=== PATIENT | female | born 1985 | race Caucasian/White ===

== ENCOUNTER 2018-05-09 18:19 | Inpatient (IN) | payer SELFPAY ==
[~2018-05-09] VITALS: Ht 162.6 cm; Wt 58.7 kg
[2018-05-09] MEDS ORDERED: MIDAZOLAM DRIP 50 mg/50mL 50 ML IV ONE (18:30)
[2018-05-09] MEDS ORDERED: SODIUM CHLORIDE 0.9% 1,000 ML IV ONE ×2 (18:44)
[2018-05-09] MEDS ORDERED: PIPERACILLIN-TAZOB 3.375GM 100 ML IV ONE (18:45)
[2018-05-09] MEDS ORDERED: IPRATROPIUM BROM 0.5 MG/2.5ML INH SOL NEB ONE (19:00)
[2018-05-09] MEDS ORDERED: ALBUTEROL SULF 2.5 MG/0.5ML(0.5%) NEB SOLN NEB ONE (19:00)
[2018-05-09] MEDS ORDERED: methylPREDNISolone SOD SUCC 125 MG/2 ML VL IV ONE (19:00)
[2018-05-09] MEDS: MIDAZOLAM DRIP 50 mg/50mL 50 ML IV SCH (19:15)
[2018-05-09 19:33] LABS: Basophils # (auto) 0 uL; Basophils % (auto) 0.1 % (0.0-2.0); Eosinophils # (auto) 0.1 uL; Monocytes # (auto) 0.2 uL; Red Blood Cells 4.11 10^6/uL (4.0-5.20); White Blood Cell 11.9 10^3/uL (4.4-10.8)
[2018-05-09 19:45] LABS: Urine Bacteria NONE SEEN /hpf (None Seen); Urine Blood 2+ /uL (Negative); Urine Mucus FEW (None Seen); Urine WBC 2 /hpf (0 - 5)
[2018-05-09 19:48] LABS: Eosinophils % (auto) 0.6 % (0.0-7.0); Monocytes % (auto) 1.3 % (0.0-12.0)
[2018-05-09 19:49] LABS: Hematocrit 37.3 % (36.0-46.0); INR 1.08 (0.9-1.15); Lymphocytes # (auto) 3.3 uL; Mean Corpuscular Hgb Conc. 32.1 g/dL (32.0-36.0); Mean Corpuscular Volume 90.6 fL (80.0-100.0); Neutrophils # (auto) 8.3 uL; Partial Thromboplastin Time 27.1 sec (23.78-33.04); Platelet Count (auto) 358 10^3/uL (140-450); Prothrombin Time 11.5 sec (9.27-12.13); Red Cell Distribution Width 17.2 % (11.8-14.3)
[2018-05-09 19:51] LABS: Albumin 3.7 g/dL (3.4-5.0); Calcium 7.2 mg/dL (8.5-10.1); Potassium 3.7 mmol/L (3.5-5.1)
[2018-05-09 19:54] LABS: Lactic Acid w/Reflex 5.6 mmol/L (0.4-2.0)
[2018-05-09 20:00] LABS: BUN/Creatinine Ratio 9.5; Bilirubin, Total 0.8 mg/dL (0.2-1.0)
[2018-05-09 21:36] VITALS: BP 101/77
[2018-05-09] MEDS ORDERED: MORPHINE SULFATE 4 MG/ML SYR/VIAL IV PRN (22:00)
[2018-05-09] MEDS ORDERED: NITROGLYCERIN 0.4 MG SL TAB SL PRN (22:00)
[2018-05-09] MEDS ORDERED: VANCOMYCIN PER PHARMACY 0 MG IV SCH (22:00)
[2018-05-09] MEDS ORDERED: ONDANSETRON HCL 4 MG/2 ML VIAL IV PRN (22:00)
[2018-05-09] MEDS ORDERED: fentaNYL Drip 2500mCg/250mlNS 250 ML IV ONE (23:23)
[2018-05-09] MEDS: fentaNYL Drip 2500mCg/250mlNS 250 ML IV SCH (23:40)
[2018-05-10] VITALS (11 sets, daily range): BP systolic 93–114; BP diastolic 56–74
[2018-05-10] MEDS ORDERED: VANCOMYCIN 1GM/250ML 250 ML IV ONE
[2018-05-10] MEDS ORDERED: SODIUM CHLORIDE 0.9% 1,000 ML IV ONE
[2018-05-10 00:25] LABS: Lactic Acid w/Reflex 2.8 mmol/L (0.4-2.0)
[2018-05-10] MEDS: fentaNYL Drip 2500mCg/250mlNS 250 ML IV SCH (00:55)
[2018-05-10] MEDS: SODIUM CHLORIDE 0.9% 1,000 ML IV SCH ×3 (01:48→23:25)
[2018-05-10] MEDS ORDERED: MIDAZOLAM HCL 20 ML IV ONE (02:50)
[2018-05-10] MEDS ORDERED: LORazepam 2MG/ML-1ML VIAL ONE ×2 (02:59→05:16)
[2018-05-10] MEDS ORDERED: LEVETIRACETAM INJ 500 MG in D5W 5% 100 ML IV SCH (03:30)
[2018-05-10] MEDS ORDERED: LEVETIRACETAM 500 MG/5ML INJ IV ONE (03:57)
[2018-05-10] MEDS: PIPERACILLIN-TAZOB 3.375GM 100 ML IV SCH ×4 (04:23→21:36)
[2018-05-10] MEDS ORDERED: PHENOBARBITAL SODIUM IV ONE (05:00)
[2018-05-10] MEDS ORDERED: SODIUM CHL 0.9% IV ONE (05:00)
[2018-05-10] MEDS ORDERED: LORAZEPAM MDV 2MG/ML 10 ML IV ONE (05:15)
[2018-05-10] MEDS ORDERED: DIAZEPAM 5 MG/ML 2ML SYRG IV ONE (05:15)
[2018-05-10] MEDS ORDERED: PHENobarbital SODIUM 130 MG/ML VL ONE (05:25)
[2018-05-10] MEDS ORDERED: PHENobarbital SODIUM 65 MG/ML VL ONE (05:26)
[2018-05-10] MEDS ORDERED: PHENobarbital SODIUM 130 MG/ML VL IV ONE (05:30)
[2018-05-10 06:11] LABS: Basophils # (auto) 0 uL; Eosinophils # (auto) 0 uL; Hemoglobin 11.7 g/dL (12.2-16.2); Lymphocytes # (auto) 0.2 uL; Lymphocytes % (auto) 1.4 % (10.0-50.0); Mean Corpuscular Hemoglobin 29.9 pg (28.0-32.0); Mean Corpuscular Hgb Conc. 33.5 g/dL (32.0-36.0); Mean Corpuscular Volume 89.3 fL (80.0-100.0); Monocytes # (auto) 0.2 uL; Monocytes % (auto) 1.6 % (0.0-12.0); Neutrophils # (auto) 13.2 uL; Nucleated Red Blood Cells % 0.1 %; Platelet Count (auto) 238 10^3/uL (140-450); Red Blood Cells 3.92 10^6/uL (4.0-5.20); Red Cell Distribution Width 17.2 % (11.8-14.3); White Blood Cell 13.7 10^3/uL (4.4-10.8)
[2018-05-10] MEDS: LORAZEPAM MDV 2MG/ML 50 MG in SODIUM CHL 0.9% 25 ML IV SCH (06:17)
[2018-05-10] MEDS ORDERED: NOREPINEPHRINE 8 MG/250ML KIT 250 ML IV ONE (06:19)
[2018-05-10 06:28] LABS: Albumin 4.1 g/dL (3.4-5.0); BUN/Creatinine Ratio 13.6; Potassium 3.6 mmol/L (3.5-5.1)
[2018-05-10 06:32] LABS: Bilirubin, Total 0.8 mg/dL (0.2-1.0); Total Protein 7.5 g/dL (6.4-8.2)
[2018-05-10] MEDS: ALBUTEROL SULF 2.5 MG/0.5ML(0.5%) NEB SOLN NEB PRN (06:51)
[2018-05-10] MEDS: PANTOPRAZOLE 40 MG/10 ML VIAL IV SCH (08:08)
[2018-05-10] MEDS: NOREPINEPHRINE 8 MG/250ML KIT 250 ML IV SCH (09:00)
[2018-05-10 09:56] LABS: Alcohol, Urine < 3.0 mg/dL (0-5); Amphetamine Screen, Urine NEGATIVE (NEGATIVE); Barbiturate Scree,Urine NEGATIVE (NEGATIVE); Benzodiazephine Screen, Urine NEGATIVE (NEGATIVE); Cannabinoid Screen, Urine NEGATIVE (NEGATIVE); Cocaine Screen, Urine NEGATIVE (NEGATIVE); Opiate Scree,Urine NEGATIVE (NEGATIVE); Phencyclidine Screen, Urine NEGATIVE (NEGATIVE)
[2018-05-10] MEDS ORDERED: PROPOFOL 10 MG/ML 20 ML IV SCH (10:15)
[2018-05-10] MEDS: ENOXAPARIN SOD 40 MG/0.4 ML SYRINGE SC SCH (10:42)
[2018-05-10] MEDS: ASPirin 81 mg TAB PO SCH (10:42)
[2018-05-10] MEDS: PROPOFOL 100 ML IV SCH (11:00)
--- NOTE | 2018-05-10 12:15 | NUR ---
TRANSPORTED PT FROM ER BED7 TO CT. MANUALLY VENTILATED PT WITH NO INCIDENT REPORTED. PT PLACED ON AUTOMOTIVE BUYER. PT WAS PLACED ON PREVIOUS VENT SETTING. WILL CONTINUE TO MONITOR PT.
[2018-05-10 13:27] LABS: Urine Bacteria FEW /hpf (None Seen); Urine Blood 3+ /uL (Negative); Urine Mucus FEW (None Seen); Urine Specific Gravity 1.023 (1.001-1.035); Urine WBC 1213 /hpf (0 - 5); Urine WBC Clumps PRESENT /hpf (None Seen)
[2018-05-10] MEDS: VANCOMYCIN 1GM/250ML 250 ML IV SCH (14:51)
--- NOTE | 2018-05-10 15:00 | NUR ---
WOUND CARE NOTE: IN TO SEE PATIENT AT THIS TIME PER WOUND CARE CONSULT REQUEST. PATIENT WAS ADMITTED TO [facility] [place] WITH DIAGNOSIS OF CPR. PATIENT WAS INTUBATED, SEDATED IN THE ER. SHE CURRENTLY IS IN ER BED 7. PATIENT IS RESTING ON HOSPITAL BED. SHE HAS A CURRENT TRISTON SCORE OF 10. PATIENT IS WOUND FREE, WITH EXCEPTION OF SMALL SERUM FILLED BLISTER TO RIGHT UPPER ANTERIOR/MEDIAL THIGH. THIS BLISTER DOES NOT APPEAR TO BE PRESSURE RELATED. SKIN REMAINS INTACT, OPEN TO AIR AT THIS TIME. NO OTHER SKIN INTEGRITY ISSUES NOTED AT THIS TIME. RECOMMEND: FREQUENT TURN SCHEDULE Q2 HOURS, PRN CONDITION PERMITS,WITH PRESSURE REDISTRIBUTION USING PILLOWS/WEDGES, BID/PRN APPLICATION WITH MOISTURE BARRIER CREAM, OPTIFOAM GENTLE SACRAL DRESSING PREVENTATIVE, PRN DRESSING CHANGE TO RIGHT THIGH BLISTER IF WOUND OPENS, SKIN/WOUND CARE PLAN, DIETARY CONSULT FOR LOW TRISTON, CONTINUED MONITORING BY WOUND CARE TEAM. Addendum: 05/10/18 at 1747 by Марина Zapata RN Amended: Links added.
[2018-05-10] MEDS: LEVETIRACETAM INJ 500 MG in D5W 5% 100 ML IV SCH (16:15)
[2018-05-10] MEDS: MIDAZOLAM DRIP 50 mg/50mL 50 ML IV SCH (19:04)
[2018-05-11] VITALS (48 sets, daily range): BP systolic 89–142; BP diastolic 52–79
[2018-05-11] MEDS: VANCOMYCIN 1GM/250ML 250 ML IV SCH ×2 (00:25→13:33)
--- NOTE | 2018-05-11 03:39 | NUR ---
Respiratory note: CHANGED RR ON VENT TO 14 AT THIS TIME
[2018-05-11] MEDS: LEVETIRACETAM INJ 500 MG in D5W 5% 100 ML IV SCH ×2 (03:41→16:10)
[2018-05-11] MEDS: ACETAMINOPHEN 325 MG TAB PO PRN ×2 (03:51→18:15)
[2018-05-11] MEDS: PIPERACILLIN-TAZOB 3.375GM 100 ML IV SCH ×4 (03:52→22:15)
[2018-05-11] MEDS: LORAZEPAM MDV 2MG/ML 50 MG in SODIUM CHL 0.9% 25 ML IV SCH (05:08)
[2018-05-11] MEDS ORDERED: IBUPROFEN 100MG/5ML ORAL SUSP 100 MG/5 ML UD GT ONE ×2 (06:15→23:15)
[2018-05-11] MEDS: NOREPINEPHRINE 8 MG/250ML KIT 250 ML IV SCH (06:25)
[2018-05-11] MEDS: PANTOPRAZOLE 40 MG/10 ML VIAL IV SCH (07:57)
[2018-05-11] MEDS: ASPirin 81 mg TAB PO SCH (10:30)
[2018-05-11] MEDS: SODIUM CHLORIDE 0.9% 1,000 ML IV SCH ×2 (10:44→20:30)
[2018-05-11] MEDS: PROPOFOL 100 ML IV SCH ×3 (10:45→23:23)
[2018-05-11] MEDS: ENOXAPARIN SOD 40 MG/0.4 ML SYRINGE SC SCH (11:00)
[2018-05-11 11:09] LABS: Calcium 7.3 mg/dL (8.5-10.1); Potassium 3.7 mmol/L (3.5-5.1)
[2018-05-11 11:15] LABS: Albumin 3.2 g/dL (3.4-5.0); BUN/Creatinine Ratio 6.1; Bilirubin, Total 1.1 mg/dL (0.2-1.0); Magnesium 2.3 mg/dL (1.6-2.6); Total Protein 6.2 g/dL (6.4-8.2)
[2018-05-11 11:23] LABS: Basophils # (auto) 0.1 uL; Basophils % (auto) 0.4 % (0.0-2.0); Eosinophils # (auto) 0.2 uL; Eosinophils % (auto) 1.3 % (0.0-7.0); Hematocrit 29.7 % (36.0-46.0); Hemoglobin 9.8 g/dL (12.2-16.2); Lymphocytes # (auto) 1.4 uL; Lymphocytes % (auto) 10.3 % (10.0-50.0); Mean Corpuscular Hemoglobin 29.1 pg (28.0-32.0); Mean Corpuscular Volume 88.3 fL (80.0-100.0); Monocytes # (auto) 0.8 uL; Monocytes % (auto) 5.9 % (0.0-12.0); Neutrophils # (auto) 10.8 uL; Neutrophils % (auto) 82.1 % (37.0-80.0); Platelet Count (auto) 220 10^3/uL (140-450); Red Blood Cells 3.37 10^6/uL (4.0-5.20); White Blood Cell 13.1 10^3/uL (4.4-10.8)
--- NOTE | 2018-05-11 13:30 | NUR ---
NUTRITION CONSULT/ASSESSMENT NOTES Please refer to link notes of nutrition screen form filed under the intervention section of the plan of care for further details. Est. Needs absed on IBW (55 kg): 1350 kcal to 1650 kcal (25-30 kcal/kgIBW), 55 gms to 66 gms pro (1.0-1.2 gms/kgBW). Will continue to monitor pertinent labs and reassess nutrient need prn Thank you for this consult. Addendum: 05/11/18 at [address] Amended: Links added.
--- NOTE | 2018-05-11 14:27 | NUR ---
RT Transport Note: Patient transported to ICU 102 with RN Renetta CH Patient transported to and from procedure on ventilator with previous ordered settings. Patient on emergency telecommunications dispatcher with alarms set and audible, ambu-bag/mask connected to 02 tank. Patient returned to room with no adverse reaction noted. Transport completed without incident.
--- NOTE | 2018-05-11 14:30 | NUR ---
Admit to ICU from ER on vent AGUILAR STRANGE admitted to ICU via gurney on electronic device monitor, intubated and being bagged by Respiratory Therapist. Patient transferred to bed 102, connected to mechanical ventilator by therapist, NOE at bedside. Patient connected to ICU monitoring,Sinus rhythm on bedside monitor. Patient weighed by bedscale, oriented to Stacie Zhou primary RN, unit, ventilator and sedation. GTT:versed, levophed, dipirvan, and NS. Skin dry and intact. Right groin TLC central line noted. Pettit catheter patent, hung below bladder. Right upper thigh blister, intact. Patient repositioned on side. Bed locked in lowest position, call light within reach. All alarms in place. Continue to monitor.
--- NOTE | 2018-05-11 15:42 | NUR ---
FAMILY Patient mother and aunt at bedside. Updated on POC.
--- NOTE | 2018-05-11 17:09 | NUR ---
TEMP Oral temp 99.5, blankets removed, ice packs applied to trunk.
--- NOTE | 2018-05-11 18:00 | NUR ---
TEMP Rectal temp checked, 101.3 noted. Ice packs applied, prn Tylenol given with ice water. Will continue to monitor and reassess.
--- NOTE | 2018-05-11 19:45 | NUR ---
ROUNDS DR. LEE IN THE UNIT TO SEE PATIENT CALLED WAYLON (PT'S MOM) OVER THE PHONE, DR. LEE TALKED TO HER AND UPDATED HER OF THE EEG RESULTS
--- NOTE | 2018-05-11 19:45 | NUR ---
OPEN NOTES ASSUMED CARE OF PATIENT. ASSESSMENT DONE. PATIENT RECEIVED SEDATED WITH IV VERSED AND PROPOFOL. PUPILS BOTH REACTIVE TO LIGHT,COUGH AND GAG NOTED. WITHDRAWS TO PAIN. INTUBATED ON AC MODE. SATURATIONS 100% PATIENT HAVING FEVER, WAS GIVEN TYLENOL AT 1800HRS. HR AND BP STABLE. ON IV LEVOPHED - WILL TITRATE TO KEEP SBP >90 MMHG. RIGHT NARE NGT TO LIS WITH LIGHT GREENISH OUTPUT. RIGHT FEMORAL WITH ZOLL CATHETER TLC. NOTED BLISTER X 3 AT RIGHT THIGH SCD'S TO BOTH LEGS WILL CONTINUE TO MONITOR
--- NOTE | 2018-05-11 20:15 | NUR ---
TEMP PATIENT'S TEMP STILL GETTING HIGHER TEMP NOW 101F SPONGE BATH DONE, ICE PACKS AT BOTH ARMPITS,COLD COMPRESS AT THE FOREHEAD DONE. TYLENOL GIVEN AT 1800HRS WILL MONITOR CLOSELY
--- NOTE | 2018-05-11 21:14 | NUR ---
SEDATION VACATION -NOT DONE, WILL WEAN DOWN SEDATION SLOWLY PATIENT HAD SEIZURE EPISODE YESTERDAY PER REPORT Addendum: 05/11/18 at 2115 by Evelina Kemp RN Amended: Links added.
[2018-05-11] MEDS: fentaNYL Drip 2500mCg/250mlNS 250 ML IV SCH (22:18)
--- NOTE | 2018-05-11 22:30 | NUR ---
COOLING BLANKET ON Addendum: 05/12/18 at 0142 by Evelina Kemp RN TOÑO 101.1F
--- NOTE | 2018-05-11 22:45 | NUR ---
PAGED HOSPITALIST PAGED HOSPITALIST - PATIENT STILL HAS FEVER
--- NOTE | 2018-05-11 23:00 | NUR ---
HOSPITALIST CALLED BACK TALKED TO DR. LEE VERBAL ORDER RECEIVED AND VERIFIED
[2018-05-12] VITALS (105 sets, daily range): BP systolic 97–123; BP diastolic 54–79
[2018-05-12] MEDS: VANCOMYCIN 1GM/250ML 250 ML IV SCH ×2 (01:10→17:50)
[2018-05-12] MEDS: MIDAZOLAM DRIP 50 mg/50mL 50 ML IV SCH ×2 (01:20→19:04)
--- NOTE | 2018-05-12 01:30 | NUR ---
TEMP PATIENT'S TEMP 98.3F - COOLING BLANKET OFF
--- NOTE | 2018-05-12 02:30 | NUR ---
TEMP PATIENT'S TEMP NOW AT LOW SIDE = 95.9F PATIENT COVERED WITH TWO WARM BLANKETS WILL CONTINUE TO MONITOR
[2018-05-12] MEDS: LEVETIRACETAM INJ 500 MG in D5W 5% 100 ML IV SCH ×2 (03:36→16:05)
[2018-05-12] MEDS: PIPERACILLIN-TAZOB 3.375GM 100 ML IV SCH ×4 (04:04→22:25)
[2018-05-12 04:10] LABS: Basophils # (auto) 0 uL; Basophils % (auto) 0.2 % (0.0-2.0); Eosinophils # (auto) 0.3 uL; Eosinophils % (auto) 2.7 % (0.0-7.0); Hematocrit 29.7 % (36.0-46.0); Hemoglobin 10.3 g/dL (12.2-16.2); Lymphocytes # (auto) 1.3 uL; Lymphocytes % (auto) 12.8 % (10.0-50.0); Mean Corpuscular Hemoglobin 29.9 pg (28.0-32.0); Mean Corpuscular Hgb Conc. 34.5 g/dL (32.0-36.0); Mean Corpuscular Volume 86.8 fL (80.0-100.0); Monocytes # (auto) 0.5 uL; Monocytes % (auto) 4.4 % (0.0-12.0); Neutrophils # (auto) 8.3 uL; Neutrophils % (auto) 79.9 % (37.0-80.0); Platelet Count (auto) 209 10^3/uL (140-450); Red Blood Cells 3.43 10^6/uL (4.0-5.20); Red Cell Distribution Width 17.1 % (11.8-14.3); White Blood Cell 10.4 10^3/uL (4.4-10.8)
[2018-05-12 04:29] LABS: Albumin 2.9 g/dL (3.4-5.0); BUN/Creatinine Ratio 8.8; Calcium 7.3 mg/dL (8.5-10.1); Potassium 3.1 mmol/L (3.5-5.1); Total Protein 5.8 g/dL (6.4-8.2)
[2018-05-12] MEDS: LORAZEPAM MDV 2MG/ML 50 MG in SODIUM CHL 0.9% 25 ML IV SCH (04:49)
--- NOTE | 2018-05-12 06:11 | NUR ---
HOSPITALIST TALKED TO CHRISTEL KUHN INFORMED OF LAB RESULTS, URINE OUTPUT TELEPHONE ORDER RECEIVED AND VERIFIED
[2018-05-12] MEDS: POTASSIUM CHL 20MEQ/100ML 100 ML IV SCH ×4 (06:35→22:06)
--- NOTE | 2018-05-12 07:30 | NUR ---
SHIFT REPORT RECEIVED FROM NIGHT RN, MORE. PT RESTING WITH NO DISTRESS NOTED. PT SEDATED ON VERSED AND DIPRIVAN WHILE INTUBATED. NO SEIZURE ACTIVITY NOTED. CONTINUE TO MONITOR.
--- NOTE | 2018-05-12 08:05 | NUR ---
PT TEACHING PT UNABLE TO BENEFIT FROM PT TEACHING AT THIS TIME DUE TO CONDITION Addendum: 05/12/18 at 1128 by Brandy Cheema RN Amended: Links added.
--- NOTE | 2018-05-12 08:05 | NUR ---
ASSESSMENT PT LYING IB BED WITH NO SPONTANEOUS MOVEMENT NOTED. SEDATED ON VERSED AT 1 MG/HR AND DIPRIVAN AT 35 MCG/KG/MIN. PUPILS 3 AND BRISK. + COUGH AND GAG. ON THE VENTILATOR WITH 7.0 ETT/23 A T THE LIP, TV 500, AC 14, FIO2 30% AND PEEP OF 5. LUNGS CLEAR THROUGHOUT. TELE SR [address] AND INVERTED T WAVE IN LEAD II AND ELEVATED ST WITH INVERTED T WAVE IN LEAD V. PALPABLE PULSES TO ALL EXTREMITIES. SCDS TO BLE. ABD SOFT WITH HYPOACTIVE BOWEL SOUNDS. RIGHT NARES NGT WITH + PLACEMENT AND CONNECTED TO LIS, GREEN BILE FLUID DRAINING. LAST BM PRE ADMISSION. AREVALO CATHETER DRAINING CLEAR YELLOW URINE. TURNED TO RIGHT SIDE. RIGHT FEMORAL TLC, SITE BENIGN, 3 SMALL INTACT BLISTERS BELOW SITE. SACRUM CLEAR WITH OPTIFOAM DRESSING IN PLACE. CONTINUE TO MONITOR.
[2018-05-12] MEDS: PROPOFOL 100 ML IV SCH ×2 (08:07→23:15)
[2018-05-12] MEDS: PANTOPRAZOLE 40 MG/10 ML VIAL IV SCH (08:08)
[2018-05-12] MEDS: SODIUM CHLORIDE 0.9% 1,000 ML IV SCH ×2 (08:35→15:34)
[2018-05-12] MEDS: ENOXAPARIN SOD 40 MG/0.4 ML SYRINGE SC SCH (10:15)
[2018-05-12] MEDS: ASPirin 81 mg TAB PO SCH (10:15)
[2018-05-12] MEDS: NOREPINEPHRINE 8 MG/250ML KIT 250 ML IV SCH (10:32)
[2018-05-12] MEDS ORDERED: POTASSIUM CHL 20MEQ/100ML 100 ML IV SCH (11:15)
--- NOTE | 2018-05-12 12:30 | NUR ---
MD VISIT PT SEEN AND EAMINED BY DR GALDAMEZ. HE SPOKE WITH THE PT'S FAMILY AT THE BEDSIDE AND ANSWERED THEIR QUESTIONS.
[2018-05-12] MEDS: Jevity 1.2 Cal/Fiber 1 Liter GT SCH ×2 (15:51→15:53)
[2018-05-12] MEDS: SOD CHL 0.45% 1,000 ML IV SCH (15:53)
--- NOTE | 2018-05-12 16:35 | NUR ---
FEEDING HVE STARTED ON JEVITY 1.2 FEEDINGS AT 15 ML/HR WITH A GOAL RATE OF 30 ML/HR. CONTINUE TO MONITOR FOR RESIDUAL.
[2018-05-12 18:09] LABS: BUN/Creatinine Ratio 14.3; Calcium 7.4 mg/dL (8.5-10.1); Potassium 3.4 mmol/L (3.5-5.1)
--- NOTE | 2018-05-12 18:30 | NUR ---
PT HAS TOLERATED TITRATION DOWN ON DIPRIVAN TO 28 MCG FROM 35 WITH NO SEIZURE ACTIVITY NOTED.
--- NOTE | 2018-05-12 18:40 | NUR ---
PT'S MOTHER AND SISTER HAVE LEFT FOR DINNER.
--- NOTE | 2018-05-12 19:30 | NUR ---
REPORT TO MEGHAN AGUERO RN.
--- NOTE | 2018-05-12 19:50 | NUR ---
OPEN NOTES ASSUMED CARE OF PATIENT. ASSESSMENT DONE -REFER INTERVENTIONS. STILL SEDATED WITH PROPOFOL. PUPILS BOTH REACTIVE TO LIGHT,COUGH AND GAG NOTED. WITHDRAWS TO PAIN. INTUBATED ON AC MODE. SATURATIONS 100% PATIENT TEMP 96.6F RECTALLY, ORALLY 97.5F TUBE FEEDING STARTED TODAY, RESIDUAL CHECKED = 0ML, INCREASED TO 20ML/HR RIGHT FEMORAL WITH ZOLL CATHETER TLC. NOTED BLISTER X 3 AT RIGHT THIGH SCD'S TO BOTH LEGS WILL CONTINUE TO MONITOR
--- NOTE | 2018-05-12 20:00 | NUR ---
SEDATION WILL SLOWLY DECREASE SEDATION TOLERATED
--- NOTE | 2018-05-12 20:00 | NUR ---
TUBE FEEDING PATIENT'S NGT CHECKED, RESIDUAL = 0ML INCREASED FEEDING TO 20ML/HR
--- NOTE | 2018-05-12 21:30 | NUR ---
Family updated on pt status Family of AGUILAR STRANGE updated on patient's status and condition. All questions and concerns addressed. verbalized understanding. Addendum: 05/13/18 at 0101 by Evelina Kemp RN ADVISED ABOUT POC
[2018-05-12] MEDS: fentaNYL Drip 2500mCg/250mlNS 250 ML IV SCH (22:18)
[2018-05-13] VITALS (102 sets, daily range): BP systolic 97–142; BP diastolic 52–88
--- NOTE | 2018-05-13 | NUR ---
TUBE FEEDING PATIENT'S NGT CHECKED, RESIDUAL = 0ML INCREASED FEEDING TO 30ML/HR
[2018-05-13] MEDS: LEVETIRACETAM INJ 500 MG in D5W 5% 100 ML IV SCH ×2 (03:36→15:55)
[2018-05-13] MEDS: PIPERACILLIN-TAZOB 3.375GM 100 ML IV SCH ×4 (03:57→23:52)
--- NOTE | 2018-05-13 04:00 | NUR ---
FATHER AT BEDSIDE UPDATED HIM OF PATIENT'S CONDITION.ALL QUESTIONS ANSWERED,VERBALIZED UNDERSTANDING
[2018-05-13 04:03] LABS: Basophils # (auto) 0 uL; Basophils % (auto) 0.2 % (0.0-2.0); Eosinophils # (auto) 0.3 uL; Eosinophils % (auto) 7.6 % (0.0-7.0); Hematocrit 25.6 % (36.0-46.0); Hemoglobin 8.9 g/dL (12.2-16.2); Lymphocytes # (auto) 0.6 uL; Lymphocytes % (auto) 13.5 % (10.0-50.0); Mean Corpuscular Hemoglobin 30.1 pg (28.0-32.0); Mean Corpuscular Hgb Conc. 34.8 g/dL (32.0-36.0); Mean Corpuscular Volume 86.4 fL (80.0-100.0); Monocytes # (auto) 0.2 uL; Monocytes % (auto) 4.2 % (0.0-12.0); Neutrophils # (auto) 3.3 uL; Neutrophils % (auto) 74.5 % (37.0-80.0); Nucleated Red Blood Cells % 0.1 %; Platelet Count (auto) 147 10^3/uL (140-450); Red Blood Cells 2.96 10^6/uL (4.0-5.20); Red Cell Distribution Width 16.5 % (11.8-14.3); White Blood Cell 4.4 10^3/uL (4.4-10.8)
[2018-05-13] MEDS: SOD CHL 0.45% 1,000 ML IV SCH ×3 (04:10→13:36)
--- NOTE | 2018-05-13 04:30 | NUR ---
Family updated on pt status PARENTS of ALIEAGUILAR updated on patient's status and condition. All questions and concerns addressed. verbalized understanding.
[2018-05-13 04:37] LABS: Albumin 2.5 g/dL (3.4-5.0); BUN/Creatinine Ratio 23.1; Magnesium 1.7 mg/dL (1.6-2.6); Potassium 3.7 mmol/L (3.5-5.1)
[2018-05-13 04:40] LABS: Bilirubin, Total 0.7 mg/dL (0.2-1.0); Total Protein 5.3 g/dL (6.4-8.2)
[2018-05-13] MEDS: LORAZEPAM MDV 2MG/ML 50 MG in SODIUM CHL 0.9% 25 ML IV SCH (05:15)
[2018-05-13] MEDS: NOREPINEPHRINE 8 MG/250ML KIT 250 ML IV SCH (06:08)
--- NOTE | 2018-05-13 06:20 | NUR ---
Patient bathe/linen change Patient given complete bath. Skin integrity assessed for any changes. Linens changed. Patient repositioned for comfort.
--- NOTE | 2018-05-13 07:30 | NUR ---
NEUROLOGIST DR. JESUS TOTH AWARE OF REACTION TO PAINFUL STIMULI REPORTED. SEE MD NOTES.
--- NOTE | 2018-05-13 09:00 | NUR ---
PULMONARY CONSULT IN PLACE DR. DIAZ NOTIFIED OF CONSULT WHILE AT NURSES STATION. VERBALIZED UNDERSTANDING.
--- NOTE | 2018-05-13 10:00 | NUR ---
Family updated on pt status Family of THI STRANGESSICA updated on patient's status and condition. All questions and concerns addressed. Mother/ father/ sister/ friends verbalized understanding.
--- NOTE | 2018-05-13 10:01 | NUR ---
Hospitalist at bedside Dr. Bedoya updated on patients status, Md updated family at bedside on plan of care, questions and concerns addressed. Md aware of pending nephrology consult. See md orders/ notes. Addendum: 05/13/18 at 1010 by Laurel Álvarez RN MD AWARE OF CURRENT HBG ORDER, PER MD DROP IS LIKELY FROM HEMODILUTION. BLEEDING TO BE MONITORED.
[2018-05-13] MEDS: ENOXAPARIN SOD 40 MG/0.4 ML SYRINGE SC SCH (10:14)
[2018-05-13] MEDS: ASPirin 81 mg TAB PO SCH (10:14)
[2018-05-13] MEDS: PANTOPRAZOLE 40 MG/10 ML VIAL IV SCH (10:14)
[2018-05-13] MEDS: VANCOMYCIN 1GM/250ML 250 ML IV SCH (10:14)
[2018-05-13] MEDS ORDERED: CALCIUM GLUC 4.65meq/50ml D5AE 50 ML IV ONE (10:30)
[2018-05-13 11:16] LABS: Urine Bacteria NONE SEEN /hpf (None Seen); Urine Blood Negative /uL (Negative); Urine Mucus FEW (None Seen); Urine Specific Gravity 1.037 (1.001-1.035); Urine WBC 4 /hpf (0 - 5)
[2018-05-13 11:43] LABS: Protein, Urine 43.9 mg/dL (0.0-11.9)
--- NOTE | 2018-05-13 11:52 | NUR ---
Nutrition Follow-up Notes Wt.: 67.8 kg today. Pt's intubated, immediate family members at bedside talking to MD during rounds in ER earlier. Pt's currently sedated with Propofol @ 7.43 ml/hr providing 196 kcal from Fat. Pt's NPO, currently on Jevity 1.2 Ced @ 30 ml/hr providing 864 kcal, 40 gms pro and 581 ml free water, tolerates feeding well, no residuals noted by RN this morning. Pt with inadequate EN support d/t low initiation rate delivery of concentrated formula aeb current EN infusion meets 53% to 62% of est caloric needs (with Propofol on board) and 45% to 59% of est protein needs. Noted pt's for active Nephrology consult. Est. Needs reassessed based on CBWt (68 kg): 1700 kcal to 2000 kcal (25-30 kcal/kgIBW), 68 gms to 88 gms pro (1.0-1.3 gms/kgBW d/t mod hypoalbuminemia). Will continue to monitor pertinent labs and reassess nutrient need prn Labs: Cl 112 H, Ca 7.0 L, Cr 0.39 L, AST 87 H, Tpro 5.3 L, Alb 2.5 L Skin: Patrice scale 13, mod risk, pt's right upper medial thigh intact blister, serum filled per manifest/order organizer print orders. Pls refer to computer science professor's notes (05/10/18) for further details re: tx plans. GI: Pt had 1 BM this morning per manifest/order organizer print orders. PES: Increased nutrient needs r/t current/chronic medical condition aeb intubated, sedated, mild hypoalbuminemia, NPO. Altered nutrition related lab values r/t current/chronic medical condition aeb hyperglycemia, elev. LFTs, hyperbilirubinemia, hypocalcemia and mild hypoalbuminemia Will continue to monitor NPO status, EN tolerance, skin status, pertinent labs and weight trend. F/u in 2 to 3 days. Rec.: 1.) If still NPO with EN support, consider gradual increase on feeding rate of Jevity 1.2 Ced to 60 ml/hr goal rate as tolerated while on current rate of Propofol. 2.) If Albumin level continues trending down,consider Prostat 1 pkt BID. 3.) Consider daily MVI with minerals and Asc acid 500 mgs BID prn. 4.) Advance gradually to oral diet when medically appropriate. 5.) Refer to RD for further nutrition education and weight monitoring upon discharged. 6.) Continue current plan of care.
[2018-05-13] MEDS: MAGNESIUM SULFATE 1GM/100ML 100 ML IV SCH ×2 (12:27→13:35)
--- NOTE | 2018-05-13 12:45 | NUR ---
BUILDING CUSTODIAN AT BEDSIDE MD UPDATED ON PATIENTS STATUS, FAMILY AT BEDSIDE UPDATED BY MD, QUESTIONS AND CONCERNS ADDRESSED. SEE NEW ORDERS.
--- NOTE | 2018-05-13 13:44 | NUR ---
Left foot jerking noted during all cares. Patient opening eyes to stimulus , not yet tracking or following commands. See iv spreadsheet. Addendum: 05/13/18 at 1444 by Laurel Álvarez RN DUPLICATE NOTE
--- NOTE | 2018-05-13 13:48 | NUR ---
LEFT FOOT CONTINUOUS JERKING MOVEMENT NOTED AFTER ANY TYPE OF STIMULI. SEDATION TO BE TITRATE APPROPRIATELY . NO OTHER TWITCHING TO ANY OTHER EXTREMITIES. ONCE PATIENT IS LEFT ALONE MOVEMENT SUBSIDES APPROX AFTER 90 SEC. Addendum: 05/13/18 at 1440 by Laurel Álvarez RN Propofol continues to infuse.
--- NOTE | 2018-05-13 17:16 | NUR ---
Pt is a 32 yo female that is currently intubated and unable to participate in sr. social media & mobile manager assessment. Pt is unmarried and has no children. Pt's mother, father, another relative requested sr. social media & mobile manager meeting. Prior to admission pt resided in her own home ( newly purchased) and was employed with an [employer] company. Pt had recently had a raise on her job but it put her over income for reduced medical insurance. Parents requesting information on advance directives. Informed parents that in pt's present state they would not be able to do an advance directive but instructions for her care would be directed to the next closest relative. Mother inquiring about Medi-Ced and disability insurance for pt. Pt has been assessed by [facility] for Medi-Ced. Pt is a true no insurance and has no coverage for d/c planning. Provided family with education regarding d/c options post vent. Will followup with family and [facility] closert to time of d/c. Addendum: 05/18/18 at 1430 by RYAN LORENZO Amended: Links added.
--- NOTE | 2018-05-13 17:28 | NUR ---
SEIZURE ACTIVITY PATIENT HAVING CONTINUOUS MOVEMENT TO LEFT FOOT EVEN WITHOUT STIMULI. PRN ATIVAN GIVEN AND NO EFFECTS NOTED, PROPOFOL INCREASED. DR. LEE CALLED TO NOTIFY. SEE NEW ORDER.
[2018-05-13] MEDS ORDERED: LEVETIRACETAM INJ 1,000 MG in D5W 5% 100 ML IV ONE (17:30)
[2018-05-13] MEDS: MIDAZOLAM DRIP 50 mg/50mL 50 ML IV SCH (18:06)
--- NOTE | 2018-05-13 18:09 | NUR ---
ASSESSMENT KEPPRA INFUSED/ PROPOFOL INCREASED. PTS MOVEMENT TO LEFT BIG TOE AND SECOND TOE NOTED TO HAVE SLIGHTLY CONTINUOUS TWITCHING. WILL CONTINUE TO TITRATE PER DR. LEE UNTIL SEIZURE ACTIVITY SUBSIDES.
--- NOTE | 2018-05-13 18:45 | NUR ---
VENT ALARMING VENTILATOR ALARM, IN ROOM TO ASSESS PATIENT. VENT ALARMING HIGH PRESSURE, RR HIGH40'S. PT APPEARS TO BE CLAMPING DOWN AND STACKING BREATHS. R.T PAGED PATIENT APPEARS TO BE BITING DOWN ON ETT, R.T AT BEDSIDE TO APPLY OPA AT THIS TIME. SEE SEDATION INCREASED. SHORTLY AFTER PATIENT TOLERATED VENTILATOR.
[2018-05-13 19:02] LABS: BUN/Creatinine Ratio 17.1; Potassium 3.4 mmol/L (3.5-5.1)
--- NOTE | 2018-05-13 20:02 | NUR ---
CONSTRUCTION FIELD ENGINEER PAGED RE: BMP. AWAITING CALLBACK.
--- NOTE | 2018-05-13 20:15 | NUR ---
JHON CALLED BACK TALKED TO DR. KWON, INFORMED OF LAB RESULTS TELEPHONE ORDER RECEIVED AND VERIFIED
--- NOTE | 2018-05-13 20:30 | NUR ---
Family updated on pt status MOTHER of AGUILAR STRANGE updated on patient's status and condition. All questions and concerns addressed. verbalized understanding.
--- NOTE | 2018-05-13 21:00 | NUR ---
Family updated on pt status FATHER of AGUILAR STRANGE updated on patient's status and condition. All questions and concerns addressed. verbalized understanding.
--- NOTE | 2018-05-13 21:10 | NUR ---
LEFT FOOT TREMOR PATIENT'S LEFT FOOT NOT TO HAVE TREMORS LASTING FOR 4MINUTES INCREASED SEDATION - DIPRIVAN TO 34MCG/KG/MIN Addendum: 05/14/18 at 0312 by Evelina Kemp RN WILL TITRATE SEDATION TO CONTROL SEIZURE
--- NOTE | 2018-05-13 21:19 | NUR ---
SEDATION VACATION NOT DONE -NEEDED TO CONTROL SEIZURE Addendum: 05/13/18 at 2120 by Evelina Kemp RN Amended: Links added.
[2018-05-13] MEDS: SOD CHL 0.9%/ KCL 20MEQ 1,000 ML IV SCH (21:22)
[2018-05-13] MEDS: fentaNYL Drip 2500mCg/250mlNS 250 ML IV SCH (22:18)
[2018-05-14] VITALS (105 sets, daily range): BP systolic 96–126; BP diastolic 53–75
--- NOTE | 2018-05-14 01:45 | NUR ---
Patient bathe/linen change Patient given complete bath. Skin integrity assessed for any changes. Linens changed. Patient repositioned for comfort.
[2018-05-14] MEDS: PROPOFOL 100 ML IV SCH ×4 (02:20→19:13)
[2018-05-14 03:47] LABS: Basophils # (auto) 0 uL; Basophils % (auto) 0.3 % (0.0-2.0); Eosinophils # (auto) 0.2 uL; Eosinophils % (auto) 6.8 % (0.0-7.0); Hematocrit 26.6 % (36.0-46.0); Hemoglobin 9.2 g/dL (12.2-16.2); Lymphocytes # (auto) 0.5 uL; Lymphocytes % (auto) 13.2 % (10.0-50.0); Mean Corpuscular Hemoglobin 29.6 pg (28.0-32.0); Mean Corpuscular Hgb Conc. 34.5 g/dL (32.0-36.0); Mean Corpuscular Volume 85.8 fL (80.0-100.0); Monocytes # (auto) 0.2 uL; Monocytes % (auto) 5.2 % (0.0-12.0); Neutrophils # (auto) 2.6 uL; Neutrophils % (auto) 74.5 % (37.0-80.0); Nucleated Red Blood Cells % 0.3 %; Platelet Count (auto) 141 10^3/uL (140-450); Red Cell Distribution Width 16.3 % (11.8-14.3); White Blood Cell 3.4 10^3/uL (4.4-10.8)
[2018-05-14 04:11] LABS: Albumin 2.5 g/dL (3.4-5.0); BUN/Creatinine Ratio 11.9; Potassium 3.6 mmol/L (3.5-5.1)
[2018-05-14 04:13] LABS: Bilirubin, Total 0.5 mg/dL (0.2-1.0); Total Protein 5.4 g/dL (6.4-8.2)
[2018-05-14] MEDS: LORAZEPAM MDV 2MG/ML 50 MG in SODIUM CHL 0.9% 25 ML IV SCH ×2 (05:15→10:10)
[2018-05-14] MEDS: SOD CHL 0.9%/ KCL 20MEQ 1,000 ML IV SCH ×3 (05:25→20:15)
[2018-05-14] MEDS: PIPERACILLIN-TAZOB 3.375GM 100 ML IV SCH ×3 (05:33→18:07)
--- NOTE | 2018-05-14 06:01 | NUR ---
RE-ASSESS NO MORE LEFT FOOT TWITCHING/TREMORS NOTED SINCE DIPRIVAN WAS INCREASED TO 40 MCG/KG/MIN VS STABLE, AFEBRILE WILL CONTINUE TO MONITOR
--- NOTE | 2018-05-14 07:30 | NUR ---
Opening Shift Note: Report received from LAURA Hoyt. Assumed care of patient, intubated and sedated on diprivan for comfort. No S/S of distress/SOB or pain. Insructed mother on POC-patient to remain sedated for seizure control until Dr. Hu says ok to titrate off. Will continue to monitor for changes Q1hr and PRN. See Px assessment.
--- NOTE | 2018-05-14 07:30 | NUR ---
Dr. Hu at bedside. EEG ordered and increased Keprra dose.
[2018-05-14] MEDS: PANTOPRAZOLE 40 MG/10 ML VIAL IV SCH (08:00)
[2018-05-14] MEDS: NOREPINEPHRINE 8 MG/250ML KIT 250 ML IV SCH (08:00)
[2018-05-14] MEDS ORDERED: LEVETIRACETAM INJ 1,000 MG in D5W 5% 100 ML IV ONE (08:15)
[2018-05-14] MEDS ORDERED: PROPOFOL 100 ML IV ONE (09:05)
[2018-05-14] MEDS: LORazepam 2MG/ML-1ML VIAL IV PRN (09:13)
[2018-05-14] MEDS ORDERED: LEVETIRACETAM INJ 1,000 MG in D5W 5% 100 ML IV SCH (10:00)
--- NOTE | 2018-05-14 10:07 | NUR ---
EEG COMPLETED AT BEDSIDE. LAURA GAVIRIA
[2018-05-14] MEDS: ASPirin 81 mg TAB PO SCH (10:10)
[2018-05-14] MEDS: LEVETIRACETAM INJ 1,500 MG in D5W 5% 100 ML IV SCH ×2 (10:10→22:13)
[2018-05-14] MEDS: ENOXAPARIN SOD 40 MG/0.4 ML SYRINGE SC SCH (10:10)
[2018-05-14] MEDS ORDERED: CALCIUM CHL 100MG/ML 1,000 MG in D5W 5% 100 ML IV ONE (11:00)
--- NOTE | 2018-05-14 11:13 | NUR ---
Dr. Barajas at bedside- told him that family wants second neuro opinion and will tell Dr. Hu.
--- NOTE | 2018-05-14 14:48 | NUR ---
HEATED CIRCUIT PLACED ON VENT AND ALSO PLACED AL WITH BITE BLOCK WITH NO INCIDENCE REPORTED. LAURA LUIS MADE AWARE. WILL CONTINUE TO MONITOR PT.
--- NOTE | 2018-05-14 16:53 | NUR ---
Dr. Escamilla notified so far 500 out from [facility] - lasix 80 mg ordered.
[2018-05-14] MEDS ORDERED: FUROSEMIDE 100 MG/10ML VIAL IV ONE (17:00)
[2018-05-14] MEDS: MIDAZOLAM DRIP 50 mg/50mL 50 ML IV SCH (17:27)
--- NOTE | 2018-05-14 17:45 | NUR ---
Dr. Hu aware that family wants second opinion and wants update. He will see them in the morning - family aware.
--- NOTE | 2018-05-14 18:54 | NUR ---
Dr. Escamilla at bedside -call him if patient not putting out enough urine.
--- NOTE | 2018-05-14 19:02 | NUR ---
Endorsed care to LAURA Heredia.
--- NOTE | 2018-05-14 20:00 | NUR ---
OPENING SHIFT NOTE Received report from LAURA Stern. Pt resting in bed, intubated, and sedated. See IV spreadsheet and completed physical assessment intervention. Bed locked, in lowest position with top two side rails up, and call light within reach. All alarms on and audible. Will continue to monitor pt.
--- NOTE | 2018-05-14 20:28 | NUR ---
VISITORS AT BEDSIDE Pt's friend, Bj and mother, Katie at bedside. Updated on pt condition and answered all questions. Katie verbalized understanding.
[2018-05-14] MEDS: fentaNYL Drip 2500mCg/250mlNS 250 ML IV SCH (22:15)
[2018-05-15] VITALS (103 sets, daily range): BP systolic 81–118; BP diastolic 41–67
[2018-05-15] MEDS: PIPERACILLIN-TAZOB 3.375GM 100 ML IV SCH ×5 (00:40→23:42)
--- NOTE | 2018-05-15 01:00 | NUR ---
ELEVATED TEMPERATURE Cooling measures implemented for elevated temperature. Will continue to monitor pt.
--- NOTE | 2018-05-15 01:30 | NUR ---
GASTRIC RESIDUAL 0 ml gastric residual noted. Jevity 1.2 TF resumed at 30 ml/hr. Will continue to monitor.
--- NOTE | 2018-05-15 01:45 | NUR ---
ATIVAN AND PROPOFOL DRIP RATE INCREASED BLE tremor noted after receiving oral care. Pt opened eyes slightly but did not track movements. Ativan and propofol drip rates increased. Will continue to monitor pt.
--- NOTE | 2018-05-15 02:20 | NUR ---
TREMORS RESOLVED BLE tremors resolved. Will continue to monitor pt.
[2018-05-15] MEDS: SOD CHL 0.9%/ KCL 20MEQ 1,000 ML IV SCH ×3 (03:05→21:07)
--- NOTE | 2018-05-15 04:00 | NUR ---
GASTRIC RESIDUAL 0 ml of gastric residual noted. Jevity 1.2 TF resumed at 30 ml/hr.
[2018-05-15 04:20] LABS: Basophils # (auto) 0 uL; Basophils % (auto) 0.2 % (0.0-2.0); Eosinophils # (auto) 0.2 uL; Eosinophils % (auto) 3.5 % (0.0-7.0); Hematocrit 27.1 % (36.0-46.0); Hemoglobin 9.4 g/dL (12.2-16.2); Lymphocytes # (auto) 0.4 uL; Lymphocytes % (auto) 8.2 % (10.0-50.0); Mean Corpuscular Hemoglobin 29.8 pg (28.0-32.0); Mean Corpuscular Hgb Conc. 34.7 g/dL (32.0-36.0); Mean Corpuscular Volume 85.8 fL (80.0-100.0); Monocytes # (auto) 0.3 uL; Monocytes % (auto) 5.3 % (0.0-12.0); Neutrophils # (auto) 4.4 uL; Neutrophils % (auto) 82.8 % (37.0-80.0); Nucleated Red Blood Cells % 0.4 %; Platelet Count (auto) 194 10^3/uL (140-450); Red Blood Cells 3.16 10^6/uL (4.0-5.20); Red Cell Distribution Width 17.1 % (11.8-14.3); White Blood Cell 5.4 10^3/uL (4.4-10.8)
[2018-05-15 04:34] LABS: Albumin 2.6 g/dL (3.4-5.0); BUN/Creatinine Ratio 12.2; Calcium 7.2 mg/dL (8.5-10.1); Potassium 3.4 mmol/L (3.5-5.1)
[2018-05-15 04:37] LABS: Bilirubin, Total 0.5 mg/dL (0.2-1.0); Total Protein 5.8 g/dL (6.4-8.2)
[2018-05-15] MEDS: PROPOFOL 100 ML IV SCH ×2 (04:42→09:50)
--- NOTE | 2018-05-15 05:00 | NUR ---
BATH/LINEN CHANGE Pt given complete CHG bath. Skin integrity assessed for any changes, no changes noted. Linens changed. Pt repositioned for comfort. Pt tolerated well and VSS.
[2018-05-15] MEDS: NOREPINEPHRINE 8 MG/250ML KIT 250 ML IV SCH ×2 (05:49→13:43)
[2018-05-15] MEDS: LORAZEPAM MDV 2MG/ML 50 MG in SODIUM CHL 0.9% 25 ML IV SCH (05:55)
--- NOTE | 2018-05-15 06:25 | NUR ---
VISITORS Pt's mother, Katie and father at bedside. Updated on pt condition and answered all questions. Katie and pt's father verbalized understanding.
--- NOTE | 2018-05-15 07:20 | NUR ---
REPORT Report given to LAURA Toscano. Notified of family's request to speak with Dr. Hu this am. Care endorsed.
--- NOTE | 2018-05-15 07:35 | NUR ---
OPENING SHIFT NOTE REPORT RECEIVED FROM ELEMENTARY SCHOOL TEACHER'S AIDE RN, POC REVIEWED, HEAD TO TOE ASSESSMENT PERFORMED AND DOCUMENTED. AT THIS TIME, PATIENT IS INTUBATED, SEDATED AND NON RESPONSIVE WITH POSITIVE COUGH AND GAG REFLEX - EYES 2/3+ AND WANDERING TO THE RIGHT - RIGHT GREATER THAN LEFT. BILATERAL FEET TWITCHING AND FLEXING DOWNWARD EQUALLY, RESPIRATIONS EVEN AND UNLABORED, NO DISTRESS NOTED. VSS, IV SITE BENIGN. PATIENT POSITIONED FOR COMFORT. FALL PRECAUTIONS IN PLACE.
--- NOTE | 2018-05-15 08:00 | NUR ---
NGT ADVANCED APPROXIMATELY 9 CM RECOMMENDED BY RADIOLOGIST.
[2018-05-15] MEDS: PANTOPRAZOLE 40 MG/10 ML VIAL IV SCH (08:05)
--- NOTE | 2018-05-15 08:55 | NUR ---
DR LEE AND FAMILY AT BEDSIDE DR LEE UPDATED ON PATIENT'S STATUS, DRIPS, FOOT TWITCHING AND EYE MOVEMENT. ASSESSMENT PERFORMED BY DR LEE. DR LEE DISCUSSED PLAN OF CARE WITH PATIENT'S MOTHER, FATHER, SISTER AND FRIEND IN ICU WAITING ROOM, PER MOTHER'S REQUEST. ALL QUESTIONS AND CONCERNS ADDRESSED. FAMILY VERBALIZED UNDERSTANDING. DR LEE ALSO ORDERED NOT TO TITRATE DIPRIVAN OR ATIVAN AT THIS TIME - WE WILL BEGIN NEW MEDICATION AND WILL MONITOR TREATMENT TOMORROW. FAMILY ALSO REQUESTED SECOND NEUROLOGY OPINION, DR LEE VERBALIZED UNDERSTANDING. ORDERS WILL BE CARRIED OUT.
[2018-05-15] MEDS ORDERED: PHENYTOIN IV DILANTIN 1,000 MG in SODIUM CHL 0.9% 250 ML IV ONE (09:45)
--- NOTE | 2018-05-15 09:46 | NUR ---
CONTACT PHARMACY REGARDING MEDICATIONS AWAITING KEPPRA AND DILANTIN IV. WILL ADMINISTER SOON AVAILABLE.
[2018-05-15] MEDS: ENOXAPARIN SOD 40 MG/0.4 ML SYRINGE SC SCH (09:48)
[2018-05-15] MEDS: ASPirin 81 mg TAB PO SCH (09:48)
[2018-05-15] MEDS: LEVETIRACETAM INJ 1,500 MG in D5W 5% 100 ML IV SCH ×2 (10:45→21:34)
--- NOTE | 2018-05-15 11:35 | NUR ---
Nutrition Follow-up Notes Wt.: 63.6 kg today. Pt remains intubated, no immediate family member at bedside when rounded earlier. Pt's currently sedated with Propofol @ 10.614 ml/hr providing 280 kcal from Fat. Pt's NPO, currently on Jevity 1.2 Ced @ 30 ml/hr providing 864 kcal, 40 gms pro and 581 ml free water, tolerates feeding well, no residuals noted by RN this morning. Pt with inadequate EN support d/t low initiation rate delivery of concentrated formula aeb current EN infusion meets 57% to 67% of est caloric needs (with Propofol on board) and 45% to 59% of est protein needs. Followed up RD's recommendation, per MD's approval. Noted pt's for active Neurology consult. Est. Needs reassessed based on CBWt (68 kg): 1700 kcal to 2000 kcal (25-30 kcal/kgIBW), 68 gms to 88 gms pro (1.0-1.3 gms/kgBW d/t mod hypoalbuminemia). Will continue to monitor pertinent labs and reassess nutrient need prn Labs: K 3.4 L, BUN 6 L, Cr 0.49 L, Ca 7.2 L, AST 91 H, ALT 69 H, Tpro 5.8 L, Alb 2.6 L Skin: Patrice scale 13, mod risk, pt's right upper medial thigh intact blister, serum filled per shredding machine operator. Pls refer to spanish tutor's notes (05/10/18) for further details. GI: Pt had 1 BM this morning per shredding machine operator. PES: Increased nutrient needs r/t current/chronic medical condition aeb intubated, sedated, mild hypoalbuminemia, NPO. Altered nutrition related lab values r/t current/chronic medical condition aeb hyperglycemia, elev. LFTs, hyperbilirubinemia, hypocalcemia and mild hypoalbuminemia Will continue to monitor NPO status, EN tolerance, skin status, pertinent labs and weight trend. F/u in 2 to 3 days. Rec.: 1.) If still NPO with EN support, consider gradual increase on feeding rate of Jevity 1.2 Ced to 60 ml/hr goal rate as tolerated while on current rate of Propofol. 2.) If Albumin level continues trending down,consider Prostat 1 pkt BID. 3.) Consider daily MVI with minerals and Asc acid 500 mgs BID prn. 4.) Advance gradually to oral diet when medically appropriate. 5.) Refer to RD for further nutrition education and weight monitoring upon discharged. 6.) Continue current plan of care.
--- NOTE | 2018-05-15 12:57 | NUR ---
Paged Dr Thapa for patients persistent low blood pressures in the 80's systolic. Awaiting call back.
--- NOTE | 2018-05-15 13:17 | NUR ---
RETURN CALL FROM HOSPITALIST/PAGED CARDIOLOGY RETURN CALL FROM DR DIAZ, UPDATED ON PATIENT'S STATUS AND CURRENT BLOOD PRESSURE. ORDERS TO NOTIFY CARDIOLOGY RECEIVED - PAGED DR FUENTES, AWAITING RESPONSE. Addendum: 05/15/18 at 1319 by Dorcas Meneses RN FAMILY AWARE AND AT BEDSIDE.
--- NOTE | 2018-05-15 13:23 | NUR ---
RETURN CALL FROM CARDIOLOGY DR FUENTES UPDATED ON PATIENT'S STATUS, DR LEE'S RECOMMENDATION AND CURRENT BLOOD PRESSURE. ORDERS TO RESTART LEVOPHED RECEIVED IF NECESSARY.
[2018-05-15] MEDS: PHENYTOIN SODIUM 50 MG/ML 2ML VIAL IV SCH ×2 (14:00→21:29)
--- NOTE | 2018-05-15 15:58 | NUR ---
CARDIOLOGY AT BEDSIDE DR FUENTES UPDATED ON PATIENT STATUS AND DRIPS. DR FUENTES DISCUSSED PLAN OF CARE WITH PATIENT'S FATHER. FATHER VERBALIZED UNDERSTANDING.
--- NOTE | 2018-05-15 16:15 | NUR ---
PAGED DR FUENTES PER FAMILY REQUEST DR FUENTES DISCUSSED PLAN OF CARE WITH WAYLON, PATIENT'S MOTHER.
--- NOTE | 2018-05-15 17:58 | NUR ---
COMFORT MEASURES PROVIDED, PATIENT'S MOTHER AT BEDSIDE. PATIENT TOLERATED WELL.
[2018-05-15] MEDS: MIDAZOLAM DRIP 50 mg/50mL 50 ML IV SCH (19:04)
--- NOTE | 2018-05-15 19:30 | NUR ---
Initial Assessment patient received laying on bed on mechanical ventilation and sedation with no s/s of distress or pain. ETT secured with [place], ventilator plugged into red outlet, Ambu bag at bedside, oral care and suction provided. HOB elevated greater than 30 degrees. PERRL intact but patient does not wake up or follow commands. Per Dr. Hu's order-do not attempt to titrate down on sedation at this time. OGT running Jevity at 30ml/hour with no residuals. OGT placement verified via auscultation with air bolus. Abd soft with hypoactive BS x4 quadrants. Rfemoral ZOLL TLC intact and patent x3 ports (brown port sluggish) all ports with good blood return. Dressing is CDI. No bleeding or hematoma noted. Vaginal swelling present. F/C intact and draining to gravity, continuous temperature monitoring with rectal thermometer probe intact. SCD's intact to BLE. Bilateral footdrop noted. neurovascular status intact with palpable distal pulses, capillary refill brisk, skin warm to touch. All extremities elevated to minimize swelling. Bed in lowest position, side rails up, bed brakes set, all alarms audible. In direct view of nurses station. Addendum: 05/16/18 at 0259 by Maria Elena Darby RN Right groin TLC dressing was changed 05/13 (not due to be changed)
--- NOTE | 2018-05-15 20:00 | NUR ---
Tube feeding Line change Tube feeding bottle and tubing changed per 24 hour protocol.
--- NOTE | 2018-05-15 20:15 | NUR ---
Potassium Noted that potassium from this morning was 3.4 (not replaced) and patient diuresed 1975ml of urine on day shift. New blood specimen sent to lab to re-check potassium for patient safety at this time. No ectopy or rhythm changes noted.
--- NOTE | 2018-05-15 20:30 | NUR ---
Family at bedside Three visitors at bedside. RN updated on status of patient and POC and they verbalized understanding. No concerns or complaints voiced at this time.
--- NOTE | 2018-05-15 21:00 | NUR ---
Sedation vacation held at this time due to Dr. Hu's orders to not attempt to titrate down on sedation at this time.
--- NOTE | 2018-05-15 22:00 | NUR ---
Bray[place] Boots applied Foot drop noted to bilateral feet. [place] boots applied to prevent worsening of foot drop.
[2018-05-15] MEDS: fentaNYL Drip 2500mCg/250mlNS 250 ML IV SCH (22:18)
--- NOTE | 2018-05-15 22:30 | NUR ---
Wound care Barrier cream applied to sacrum/perineal area to prevent skin breakdown.; Optifoam gentle adhesive dressing remains CDI to sacrum. Intact blisters covered with Optifoam gentle adhesive dressing to prevent any friction from opening them.
[2018-05-16] VITALS (106 sets, daily range): BP systolic 96–119; BP diastolic 40–70
--- NOTE | 2018-05-16 | NUR ---
Tube feeding Tube feeding residuals re-checked and they are 0ml. Tube feeding remains at 30ml/hour (goal rate). Pt tolerating well. No abdominal distension noted.
--- NOTE | 2018-05-16 01:15 | NUR ---
Tremors Patient's mother called this RN to come in room due to bilateral feet have slight tremor. No other movement noted. Ativan and Propofol increased in an attempt to stop the tremor. Patient's mother expressed dissatisfaction with the fact that the tremors did not immediately stop. Education provided to patient's mother regarding expectations of stopping tremor and protocol of how fast sedation can be titrated up.
--- NOTE | 2018-05-16 02:00 | NUR ---
Tremor reassessment Tremors have subsided at this time.
--- NOTE | 2018-05-16 02:30 | NUR ---
Propofol Line change Propofol tubing changed per 12 hour protocol.
[2018-05-16] MEDS: LORAZEPAM MDV 2MG/ML 50 MG in SODIUM CHL 0.9% 25 ML IV SCH (02:57)
--- NOTE | 2018-05-16 03:00 | NUR ---
Bed bath/linen change Patient given CHG bed bath. Linens and gown changed. Hair placed in ponytail to prevent tangling. Patient tolerated well with no s/s of distress or pain. Skin reassessed and there remains no breakdown or changes.
[2018-05-16 03:02] LABS: Basophils # (auto) 0 uL; Basophils % (auto) 0.4 % (0.0-2.0); Eosinophils # (auto) 0.2 uL; Eosinophils % (auto) 2.4 % (0.0-7.0); Hematocrit 29.2 % (36.0-46.0); Hemoglobin 10.1 g/dL (12.2-16.2); Lymphocytes # (auto) 0.7 uL; Lymphocytes % (auto) 6.7 % (10.0-50.0); Mean Corpuscular Hemoglobin 29.9 pg (28.0-32.0); Mean Corpuscular Hgb Conc. 34.6 g/dL (32.0-36.0); Mean Corpuscular Volume 86.4 fL (80.0-100.0); Monocytes # (auto) 0.4 uL; Monocytes % (auto) 4.3 % (0.0-12.0); Neutrophils # (auto) 8.9 uL; Neutrophils % (auto) 86.2 % (37.0-80.0); Nucleated Red Blood Cells % 0.1 %; Platelet Count (auto) 270 10^3/uL (140-450); Red Blood Cells 3.37 10^6/uL (4.0-5.20); Red Cell Distribution Width 17.1 % (11.8-14.3); White Blood Cell 10.3 10^3/uL (4.4-10.8)
[2018-05-16 03:19] LABS: Albumin 2.7 g/dL (3.4-5.0); BUN/Creatinine Ratio 11.5; Calcium 7.4 mg/dL (8.5-10.1); Potassium 3.9 mmol/L (3.5-5.1)
[2018-05-16 03:21] LABS: Bilirubin, Total 0.6 mg/dL (0.2-1.0)
--- NOTE | 2018-05-16 04:00 | NUR ---
Tube feeding Tube feeding residuals re-checked and they are 0ml. Tube feeding remains at 30ml/hour (goal rate). Pt tolerating well. No abdominal distension noted.
[2018-05-16] MEDS: SOD CHL 0.9%/ KCL 20MEQ 1,000 ML IV SCH ×3 (04:11→20:43)
[2018-05-16] MEDS: PROPOFOL 100 ML IV SCH ×4 (04:13→23:33)
[2018-05-16] MEDS: PHENYTOIN SODIUM 50 MG/ML 2ML VIAL IV SCH ×3 (05:28→22:55)
[2018-05-16] MEDS: PIPERACILLIN-TAZOB 3.375GM 100 ML IV SCH ×4 (05:28→23:58)
[2018-05-16] MEDS: PANTOPRAZOLE 40 MG/10 ML VIAL IV SCH (06:58)
--- NOTE | 2018-05-16 07:04 | NUR ---
Report given No changes or incidents to report. Care endorsed to day shift RN.
--- NOTE | 2018-05-16 08:30 | NUR ---
ASSESSMENT COMPLETED, SEE INTERVENTIONS, INCREASED ATIVAN TO 4MG/HR DUE TO LEFT TOES TWITCHING. TURNED/REPOSITIONED AND ORAL CARE PROVIDED.
--- NOTE | 2018-05-16 08:45 | NUR ---
MOM/DAD AT BEDSIDE, UPDATED ON PLAN OF CARE ALL QUESTIONS/CONCERNS ADDRESSED
[2018-05-16] MEDS: ASPirin 81 mg TAB PO SCH (09:29)
[2018-05-16] MEDS: ENOXAPARIN SOD 40 MG/0.4 ML SYRINGE SC SCH (09:29)
[2018-05-16] MEDS: LEVETIRACETAM INJ 1,500 MG in D5W 5% 100 ML IV SCH ×2 (09:47→23:03)
[2018-05-16] MEDS ORDERED: MOME200A INH (09:55)
--- NOTE | 2018-05-16 10:40 | NUR ---
DR CRONIN AT BEDSIDE, EXAMINED PATIENT AND SPOKE WITH MOTHER. Addendum: 05/16/18 at 1055 by Sunny Last RN MOTHER REQUESTING LETTER TO SEND TO PATIENT'S MORTGAGE COMPANY TO STATE THAT SHE IS IN HOSPITAL, [employer] KHADRA AND DR GAVIRIA AND WILL SIGN LETTER STATING SHE IS IN HOSPITAL.
--- NOTE | 2018-05-16 13:58 | NUR ---
AT 1219- DR VACA WAS AT BEDSIDE AND EXAMINED PATIENT. SPOKE WITH MOM/DAD REGARDING PATIENT PLAN OF CARE AND STATUS. NEW ORDER OBTAINED FOR HEAD CT AND AFTER HEAD CT TO STOP ATIVAN AND START TITRATING OFF DIPRIVAN OVER 24 HRS, PER OBTAIN EEG STAT IF PATIENT STARTS TO HAVE SEIZURE ACTIVITY. OK TO USE FENTANYL GTT IV NEEDED FOR PAIN/DISCOMFORT PER . RT UNAVAILABLE TO TAKE PATIENT TO HEAD CT AT THIS TIME. MOTHER/FATHER AWARE OF PLAN OF CARE AND ALL QUESTIONS/CONCERNS ADDRESSED
--- NOTE | 2018-05-16 15:20 | NUR ---
RT Transport Note: Patient transported to CT with LAURA GARCIA. Patient transported to and from procedure on ventilator with previous ordered settings. Patient on weight control engineer with alarms set and audible, ambu-bag/mask connected to 02 tank. Patient returned to room with no adverse reaction noted. Transport completed without incident.
--- NOTE | 2018-05-16 18:50 | NUR ---
DR LEE AT BEDSIDE AND SPOKE WITH FAMILY INCLUDING MOM AND DAD REGARDING HEAD CT RESULTS.
[2018-05-16] MEDS: MIDAZOLAM DRIP 50 mg/50mL 50 ML IV SCH (19:58)
--- NOTE | 2018-05-16 20:00 | NUR ---
OPEN NOTES ASSESSMENT DONE- REFER INTERVENTIONS IV PROPOFOL DECREASED BY 3 MCG DISCUSSED WITH FAMILY AND RN TIM STILL WITH TREMORS NOTED AT BOTH FEET PER REPORT IF TREMORS BECOMES SEVERE (WHOLE BODY) TO DO EEG AND RE START IV ATIVAN GTT, INCREASED PROPOFOL AND START IV FENTANYL IF NEEDED FOR COMFORT
--- NOTE | 2018-05-16 22:00 | NUR ---
RE-ASSESSMENT PATIENT IS STILL HAVING ON AND OFF TREMORS ON BOTH FEET NO NEW FORM OF SEIZURE NOTED AND SEIZURE NOT GENERALIZED PATIENT IS STILL NOT WAKING UP, PUPILS EQUAL AND REACTIVE TO LIGHT COUGH AND GAG NOTED IV PROPOFOL DECREASED WILL CONTINUE TO MONITOR
[2018-05-16] MEDS: fentaNYL Drip 2500mCg/250mlNS 250 ML IV SCH (23:51)
[2018-05-17] VITALS (98 sets, daily range): BP systolic 94–156; BP diastolic 41–109
[2018-05-17] MEDS: NOREPINEPHRINE 8 MG/250ML KIT 250 ML IV SCH (00:49)
[2018-05-17 04:02] LABS: Basophils # (auto) 0 uL; Basophils % (auto) 0.3 % (0.0-2.0); Eosinophils # (auto) 0.6 uL; Eosinophils % (auto) 5.4 % (0.0-7.0); Hematocrit 27.4 % (36.0-46.0); Hemoglobin 9.4 g/dL (12.2-16.2); Lymphocytes # (auto) 0.7 uL; Lymphocytes % (auto) 5.7 % (10.0-50.0); Mean Corpuscular Hemoglobin 30.1 pg (28.0-32.0); Mean Corpuscular Hgb Conc. 34.5 g/dL (32.0-36.0); Mean Corpuscular Volume 87.4 fL (80.0-100.0); Monocytes # (auto) 0.5 uL; Monocytes % (auto) 4.7 % (0.0-12.0); Neutrophils # (auto) 9.8 uL; Neutrophils % (auto) 83.9 % (37.0-80.0); Nucleated Red Blood Cells % 0.5 %; Platelet Count (auto) 254 10^3/uL (140-450); Red Blood Cells 3.13 10^6/uL (4.0-5.20); Red Cell Distribution Width 17.3 % (11.8-14.3); White Blood Cell 11.6 10^3/uL (4.4-10.8)
[2018-05-17 04:20] LABS: Albumin 2.6 g/dL (3.4-5.0); Calcium 7.7 mg/dL (8.5-10.1); Potassium 4.2 mmol/L (3.5-5.1)
[2018-05-17 04:25] LABS: Bilirubin, Total 0.6 mg/dL (0.2-1.0)
--- NOTE | 2018-05-17 05:00 | NUR ---
Patient bathe/linen change Patient given complete bath. Skin integrity assessed for any changes. Linens changed. Patient repositioned for comfort.
[2018-05-17] MEDS: LORAZEPAM MDV 2MG/ML 50 MG in SODIUM CHL 0.9% 25 ML IV SCH (05:15)
[2018-05-17] MEDS: SOD CHL 0.9%/ KCL 20MEQ 1,000 ML IV SCH ×3 (06:17→21:12)
[2018-05-17] MEDS: PHENYTOIN SODIUM 50 MG/ML 2ML VIAL IV SCH ×3 (06:17→21:33)
[2018-05-17] MEDS: PIPERACILLIN-TAZOB 3.375GM 100 ML IV SCH ×4 (06:17→23:49)
[2018-05-17] MEDS: PANTOPRAZOLE 40 MG/10 ML VIAL IV SCH (06:23)
--- NOTE | 2018-05-17 07:00 | NUR ---
REPORT REPORT GIVEN TO LAURA LUIS
--- NOTE | 2018-05-17 07:15 | NUR ---
Opening Shift Note: Report received from LAURA Hoyt. Assumed care of patient, intubated and sedated on 10mcg of diprivan titrate off and wait for seizure activity for EEG per Dr. Diallo. No S/S of distress/SOB or pain. Instructed on POC and to call for assist PRN, will continue to monitor for changes Q1hr and PRN.
--- NOTE | 2018-05-17 07:30 | NUR ---
Patient seen by Dr. Hu.
--- NOTE | 2018-05-17 08:00 | NUR ---
Went to room family at bedside during report- Mother told me she didn't want me as her nurse and she had given Chandni a list of certain nurses she wanted. She said she wants Brandy -I asked Brandy but Brandy was already comfortable with her patients'. Pepe spoke with mother and told her that we will switch nurses - mom was agitated because she wanted her daughter to be titrated off diprivan 1mcg only - I told her I was titrating low per protocol and when off we will then do EEG as directed per order-sz activity. She was not happy with my response.
--- NOTE | 2018-05-17 08:30 | NUR ---
Tube feeding residuals checked and patient has 80cc residuals- turned off feeding. Will obtain reglan order when MD arrives to see patient.
[2018-05-17] MEDS: PROPOFOL 100 ML IV SCH (09:18)
[2018-05-17] MEDS: ASPirin 81 mg TAB PO SCH (10:24)
[2018-05-17] MEDS: ENOXAPARIN SOD 40 MG/0.4 ML SYRINGE SC SCH (10:24)
--- NOTE | 2018-05-17 10:30 | NUR ---
SBAR report given to LAURA Oconnell.
--- NOTE | 2018-05-17 11:15 | NUR ---
CARLYN RECEIVED REPORT FROM LAURA LUIS. ASSUMED CARE OF ICU PATIENT, FULL CODE STATUS. PATIENT SEDATED ON VENT. WEANING OFF DIPRIVAN GTT AT THIS TIME PER DR. VACA' ORDERS. PATIENT OPEN'S EYES TO TACTILE STIMULI. SHAKING MOVEMENTS SEEN IN [place] FEET, MDS AWARE. CURRENT FIO2 ON VENT IS 30%. RIGHT HERNANDEZ NGT PLACEMENT VERIFIED. PATIENT'S TUBE FEEDINGS ON HOLD DUE TO CURRENT RESIDUALS > 60 MLS AT THIS TIME. AREVALO TO GRAVITY. SCD'S TO CARLEY LE. RIGHT FEMORAL TLC PATENT AND FLUSHED AT THIS TIME. SEE IV FLOW SHEET FOR GTT'S AND THEIR TITRATIONS. WILL CONTINUE TO TURN PATIENT Q2HRS AND PRN. OFF LOADING PRESSURE AREAS WITH PILLOWS. CONTINUE CARE.
[2018-05-17] MEDS: LEVETIRACETAM INJ 1,500 MG in D5W 5% 100 ML IV SCH ×2 (11:50→22:47)
--- NOTE | 2018-05-17 13:38 | NUR ---
Nutrition Follow-up Notes Wt.: 67.0 kg today. Noted 3.4 kg weight gain in last 2 days likely dt/t ? fluid retention aeb positive I & Os for past few days. Pt remains intubated, currently sedated with Propofol @ 1.769 ml/hr providing 47 kcal from Fat. Pt's NPO, with EN support temporarily held d/t high residuals (80 ml) noted by RN earlier. Pt's previously on Jevity 1.2 Ced @ 30 ml/hr providing 864 kcal, 40 gms pro and 581 ml free water. Est. Needs reassessed based on CBWt (68 kg): 1700 kcal to 2000 kcal (25-30 kcal/kgIBW), 68 gms to 88 gms pro (1.0-1.3 gms/kgBW d/t mod hypoalbuminemia). Will continue to monitor pertinent labs and reassess nutrient need prn Labs: Gluc 116 H, Cl 112 H, BUN 6 L, Cr 0.46 L, Ca 7.7 L, AST 58 H, ALT 73 H, Tpro 6.0 L, Alb 2.6 L Skin: Patrice scale 12, high risk, pt's right upper medial thigh intact blister, serum filled per marble ceiling installer. Pls refer to holistic specialist's notes (05/10/18) for further details. GI: Pt had 1 BM 05/13/18 per marble ceiling installer. PES: Increased nutrient needs r/t current/chronic medical condition aeb intubated, sedated, mild hypoalbuminemia, NPO. Altered nutrition related lab values r/t current/chronic medical condition aeb hyperglycemia, elev. LFTs, hyperbilirubinemia, hypocalcemia and mild hypoalbuminemia Will continue to monitor NPO status, EN tolerance, skin status, pertinent labs and weight trend. F/u in 2 to 3 days. Rec.: 1.) If still NPO, consider to resume EN support at lower rate and gradually increase on feeding rate of Jevity 1.2 Ced to 65 ml/hr goal rate as tolerated while on current rate of Propofol. 2.) If Albumin level continues trending down,consider Prostat 1 pkt BID. 3.) Consider daily MVI with minerals and Asc acid 500 mgs BID prn. 4.) Advance gradually to oral diet when medically appropriate. 5.) Refer to RD for further nutrition education and weight monitoring upon discharged. 6.) Continue current plan of care.
--- NOTE | 2018-05-17 15:00 | NUR ---
DR. VACA CALLED: ORDERS GIVEN MD UPDATED ON PT'S INCREASED AWAKENING. PATIENT'S CONSTANT FOOT TWITCHING AND HICCUP LIKE MOVEMENTS IN HER DIAPHRAGM. MD WANTING TO KEEP SEDATION WHERE IT IS AT, CURRENTLY AT 2.5 MCG/KG/MIN OF DIPRIVAN. STAT EEG WITHIN THE NEXT HOUR. EXTRUDER OPERATOR HELPER CALLED. INFORMED HIM ON ORDER AND MD REQUESTS. EXTRUDER OPERATOR HELPER. ON THEIR WAY. CONTINUE CARE.
--- NOTE | 2018-05-17 16:30 | NUR ---
DR. VACA AT BEDSIDE: TALKING WITH FAMILY UPDATED FAMILY ON PT'S CT HEAD RESULTS AND CURRENT EEG AT THIS TIME. PATIENT'S FOOT MOVEMENT CATEGORIZED TREMORS. EEG DONE WAS DONE OFF DIPRIVAN GTT. MAY START FENTANYL GTT AT THIS TIME, TITRATE FOR PATIENT'S COMFORT PER PROTOCOL. FAMILY INFORMED ON CURRENT POC. CONTINUE CARE. FENTANYL GTT STARTED AT 150 MCG/HR. CONTINUE CARE.
[2018-05-17] MEDS: fentaNYL Drip 2500mCg/250mlNS 250 ML IV SCH (16:40)
--- NOTE | 2018-05-17 16:40 | NUR ---
STAT EEG COMPLETED AT BEDSIDE. LAURA GAVIRIA.
[2018-05-17] MEDS: MIDAZOLAM DRIP 50 mg/50mL 50 ML IV SCH (17:16)
--- NOTE | 2018-05-17 19:30 | NUR ---
OPEN NOTES ASSESSMENT DONE- REFER INTERVENTIONS PATIENT IS SEDATED WITH IV FENTANYL AT 150MCG/HR. STILL WITH TREMORS NOTED AT BOTH FEET REPOSITIONED, ORAL CARE DONE PATIENT STILL HAS RESIDUALS NOTED IN NGT - FEEDING HELD
[2018-05-18] VITALS (105 sets, daily range): BP systolic 92–135; BP diastolic 43–74
--- NOTE | 2018-05-18 | NUR ---
NGT RESIDUAL NGT RESIDUAL CHECKED = 30MLS GREENISH FEEDING HELD
[2018-05-18 03:53] LABS: Basophils # (auto) 0 uL; Basophils % (auto) 0.1 % (0.0-2.0); Eosinophils # (auto) 0.2 uL; Eosinophils % (auto) 2.4 % (0.0-7.0); Hematocrit 24.9 % (36.0-46.0); Hemoglobin 8.6 g/dL (12.2-16.2); Lymphocytes # (auto) 0.7 uL; Mean Corpuscular Hemoglobin 30.2 pg (28.0-32.0); Mean Corpuscular Hgb Conc. 34.4 g/dL (32.0-36.0); Mean Corpuscular Volume 87.8 fL (80.0-100.0); Monocytes # (auto) 0.5 uL; Monocytes % (auto) 5.9 % (0.0-12.0); Neutrophils # (auto) 6.7 uL; Neutrophils % (auto) 82.6 % (37.0-80.0); Nucleated Red Blood Cells % 0.4 %; Platelet Count (auto) 248 10^3/uL (140-450); Red Blood Cells 2.84 10^6/uL (4.0-5.20); Red Cell Distribution Width 17.4 % (11.8-14.3); White Blood Cell 8.1 10^3/uL (4.4-10.8)
--- NOTE | 2018-05-18 04:00 | NUR ---
Patient bathe/linen change Patient given complete bath. Skin integrity assessed for any changes. Linens changed. Patient repositioned for comfort.
[2018-05-18 04:13] LABS: Calcium 7.5 mg/dL (8.5-10.1); Potassium 4.3 mmol/L (3.5-5.1)
[2018-05-18 04:17] LABS: Albumin 2.5 g/dL (3.4-5.0); BUN/Creatinine Ratio 19.4
[2018-05-18 04:20] LABS: Bilirubin, Total 0.6 mg/dL (0.2-1.0); Total Protein 5.6 g/dL (6.4-8.2)
--- NOTE | 2018-05-18 04:30 | NUR ---
HOSPITALIST Called/paged HOSPITALIST called re: RESIDUALS . Waiting for call back. Continue care.
[2018-05-18] MEDS: LORAZEPAM MDV 2MG/ML 50 MG in SODIUM CHL 0.9% 25 ML IV SCH (05:15)
[2018-05-18] MEDS: fentaNYL Drip 2500mCg/250mlNS 250 ML IV SCH ×2 (05:33→20:16)
[2018-05-18] MEDS: SOD CHL 0.9%/ KCL 20MEQ 1,000 ML IV SCH ×3 (05:34→22:06)
[2018-05-18] MEDS: PHENYTOIN SODIUM 50 MG/ML 2ML VIAL IV SCH ×3 (05:37→22:09)
--- NOTE | 2018-05-18 05:45 | NUR ---
HOSPITALIST returned call CHRISTEL GONCALVES returned call, updated on patient status and reason for call, orders received. Continue care.
[2018-05-18] MEDS: PIPERACILLIN-TAZOB 3.375GM 100 ML IV SCH ×4 (05:54→23:43)
[2018-05-18] MEDS: NOREPINEPHRINE 8 MG/250ML KIT 250 ML IV SCH (06:08)
[2018-05-18] MEDS: METOCLOPRAMIDE HCL 5MG/ml INJ 2ml VIAL IV SCH ×3 (06:13→22:06)
[2018-05-18] MEDS: PANTOPRAZOLE 40 MG/10 ML VIAL IV SCH (07:02)
--- NOTE | 2018-05-18 08:00 | NUR ---
OPENING NOTE Received patient on mechanical ventilator sedated on Fentanyl gtt at 150mcg. Patient opens eyes to tactile stimuli, withdrawals to pain, positive gag reflex and PERRLA. Sinus rhythm in the 70's, pulses palpable to upper/lower extremities and edema observed to the hands and lower extremities non-pitting. NG tube to the right nare checked and verified placement via air bolus:clamped secondary to high residual per NOC nurse. Last bowel movement on 05/13/2018. Patient has tremors to bilateral lower extremities. Central line(Zol) to the right femoral (TLC): good blood return and flushes easily infusing Normal saline with 20meq of potassium at 125ml/hr. Blisters to the right inner thigh and preventative dressing to the sacral area. SCD's on. Oral care provided. No facial grimacing observed at this time. Will continue to titrate as tolerated by patient.
--- NOTE | 2018-05-18 09:25 | NUR ---
MD Dr. Cortes at bedside updated on patient condition with new orders for tomorrow morning. MD spoke to patients father and questions/concerns answered by .
--- NOTE | 2018-05-18 10:00 | NUR ---
FAMILY/TEMPERATURE Patients mother Katie, at bedside, updated on patient condition. Patients temperature in the 99.0 cooling measures applied by turning on fan to cool patient. Will continue to monitor patients temperature.
[2018-05-18] MEDS: ASPirin 81 mg TAB PO SCH (10:09)
[2018-05-18] MEDS: PROPOFOL 100 ML IV SCH (10:09)
[2018-05-18] MEDS: LEVETIRACETAM INJ 1,500 MG in D5W 5% 100 ML IV SCH ×2 (10:09→22:19)
[2018-05-18] MEDS: ENOXAPARIN SOD 40 MG/0.4 ML SYRINGE SC SCH (10:09)
--- NOTE | 2018-05-18 10:17 | NUR ---
WOUND CARE NOTE: Wound care in to see patient for skin integrity monitoring. Patient continue resting in ICU premium bed in Rm. 102. Patient is intubated, sedated and mechanically ventilated. Patient appears to be in no pain using Morales Whitney Faces Pain Scale. Her current Patrice score is 13. Skin assessment done with the assistance of patient's nurse, LAURA Arenas. Blister to patient's R upper medial thigh looks resolving and dry. Cleansed, photograph taken for reference and applied protective Opti foam gentle dressing. Patient's sacral, back and other bony prominences are examined, no other wound noted, no pressure injury related issue noted. Repositioned patient for comfort, redistributed pressure points with pillows. Patient tolerated well. LAURA Arenas and patient's mother at bedside. RECOMMENDATION: Continuation of all wound care orders prescribed by MD, Continue with skin/wound plan of care,continue monitoring by wound care while patient is hospitalized. Addendum: 05/18/18 at 1842 by Tara Wang RN Amended: Links added.
--- NOTE | 2018-05-18 12:00 | NUR ---
NG TUBE Checked patients NG tube and verified via air bolus and zero residuals aspirated. NG tube continues to be clamped and will re-start tube feedings after second dose of Reglan given.
--- NOTE | 2018-05-18 15:30 | NUR ---
NG TUBE/TUBE FEEDINGS NG tube checked and verified via air bolus; zero residuals aspirated at this time. Re-started tube feedings per MD orders.
--- NOTE | 2018-05-18 16:45 | NUR ---
FAMILY Patients mother Katie, at bedside, as well as patients father who requested information about arranging services information given.
[2018-05-18] MEDS: MIDAZOLAM DRIP 50 mg/50mL 50 ML IV SCH (19:04)
--- NOTE | 2018-05-18 19:30 | NUR ---
OPEN NOTES ASSESSMENT DONE- REFER INTERVENTIONS PATIENT IS SEDATED WITH IV FENTANYL AT 160MCG/HR. STILL WITH TREMORS NOTED AT BOTH FEET. OPEN EYES TO STIMULI, NOT FOCUSING,GRIMACING NOTED. REPOSITIONED,SUCTIONED, ORAL CARE DONE
--- NOTE | 2018-05-18 20:00 | NUR ---
NGT/TUBE FEEDING NGT ASPIRATED RESIDUAL = 5MLS GREENISH WITH MILK ASPIRATE BOWEL SOUNDS HEARD INCREASED FEEDS TO 20ML/HR
--- NOTE | 2018-05-18 21:00 | NUR ---
FAMILY AT BEDSIDE
[2018-05-19] VITALS (109 sets, daily range): BP systolic 93–135; BP diastolic 42–80
--- NOTE | 2018-05-19 02:30 | NUR ---
CENTRAL LINE DRESSING CENTRAL LINE DRESSING CHANGED ASEPTICALLY
--- NOTE | 2018-05-19 03:00 | NUR ---
Patient bathe/linen change Patient given complete bath. Hair washed. Skin integrity assessed for any changes. Linens changed. Patient repositioned for comfort.
[2018-05-19 04:46] LABS: Basophils # (auto) 0 uL; Eosinophils # (auto) 0.1 uL; Eosinophils % (auto) 1.7 % (0.0-7.0); Lymphocytes # (auto) 0.4 uL; Nucleated Red Blood Cells % 0.3 %; Red Cell Distribution Width 17.3 % (11.8-14.3)
[2018-05-19 04:48] LABS: Hematocrit 24.2 % (36.0-46.0); Hemoglobin 8.1 g/dL (12.2-16.2); Lymphocytes % (auto) 6.5 % (10.0-50.0); Mean Corpuscular Hemoglobin 29.6 pg (28.0-32.0); Mean Corpuscular Hgb Conc. 33.6 g/dL (32.0-36.0); Mean Corpuscular Volume 88.3 fL (80.0-100.0); Monocytes # (auto) 0.3 uL; Monocytes % (auto) 4.8 % (0.0-12.0); Neutrophils # (auto) 5.7 uL; Platelet Count (auto) 253 10^3/uL (140-450); Red Blood Cells 2.74 10^6/uL (4.0-5.20); White Blood Cell 6.6 10^3/uL (4.4-10.8)
[2018-05-19 05:10] LABS: Albumin 2.5 g/dL (3.4-5.0); Calcium 7.9 mg/dL (8.5-10.1)
[2018-05-19 05:13] LABS: Bilirubin, Total 0.6 mg/dL (0.2-1.0); Total Protein 5.9 g/dL (6.4-8.2)
[2018-05-19] MEDS: LORAZEPAM MDV 2MG/ML 50 MG in SODIUM CHL 0.9% 25 ML IV SCH (05:15)
[2018-05-19] MEDS: SOD CHL 0.9%/ KCL 20MEQ 1,000 ML IV SCH ×3 (06:04→22:39)
[2018-05-19] MEDS: METOCLOPRAMIDE HCL 5MG/ml INJ 2ml VIAL IV SCH ×3 (06:22→22:00)
[2018-05-19] MEDS: PHENYTOIN SODIUM 50 MG/ML 2ML VIAL IV SCH ×3 (06:24→22:25)
[2018-05-19] MEDS: PIPERACILLIN-TAZOB 3.375GM 100 ML IV SCH ×3 (06:26→18:42)
--- NOTE | 2018-05-19 07:20 | NUR ---
REPORT REPORT GIVEN TO LAURA STARKEY
--- NOTE | 2018-05-19 08:00 | NUR ---
OPENING NOTE Received patient on mechanical ventilator sedated on Fentanyl gtt at 160mcg. Patient opens eyes to tactile stimuli, withdrawals to pain, positive gag reflex and PERRLA. Sinus rhythm in the 70's, pulses palpable to upper/lower extremities and edema observed to the hands and lower extremities non-pitting. NG tube to the right nare checked and verified placement via air bolus:infusing Jevity at 20mls; aspirated more than 60ml of residuals NG tube clamped secondary to high residual. Last bowel movement on 05/13/2018. Patient has tremors to bilateral lower extremities. Pettit catheter draining to gravity light tamica urine free of kinks. Central line(Zoll) to the right femoral (TLC): good blood return and flushes easily infusing Normal saline with 20meq of potassium at 125ml/hr. Blisters to the right inner thigh and preventative dressing to the sacral area. SCD's on. Oral care provided. No facial grimacing observed at this time. Will continue to monitor as tolerated by patient.
[2018-05-19] MEDS: NOREPINEPHRINE 8 MG/250ML KIT 250 ML IV SCH (08:03)
[2018-05-19] MEDS: PANTOPRAZOLE 40 MG/10 ML VIAL IV SCH (08:03)
--- NOTE | 2018-05-19 10:15 | NUR ---
FAMILY Family at bedside updated on patient condition.
[2018-05-19] MEDS: ENOXAPARIN SOD 40 MG/0.4 ML SYRINGE SC SCH (10:22)
[2018-05-19] MEDS: LEVETIRACETAM INJ 1,500 MG in D5W 5% 100 ML IV SCH ×2 (10:22→22:25)
[2018-05-19] MEDS: PROPOFOL 100 ML IV SCH (10:22)
[2018-05-19] MEDS: ASPirin 81 mg TAB PO SCH (10:22)
--- NOTE | 2018-05-19 11:38 | NUR ---
Nutrition Follow-up Notes Wt.: 70.0 kg Pt remains intubated, currently off Propofol. Pt's NPO, with EN support with Jevity 1.2 Ced @ 20 ml/hr providing 576 kcal, 28 gms pro. pt with inadequate EN support as it meets 28-33% kcals and 31-41% proteins Est. Needs reassessed based on CBWt (68 kg): 1700 kcal to 2000 kcal (25-30 kcal/kgIBW), 68 gms to 88 gms pro (1.0-1.3 gms/kgBW d/t mod hypoalbuminemia). Will continue to monitor pertinent labs and reassess nutrient need prn Labs: CA 7.9 L, ALB 2.5 L Skin: Patrice scale 13, mod risk, pt's right upper medial thigh intact blister, serum filled per statistician. Pls refer to manager account management's notes for further details. GI: Pt had 1 BM 05/13/18 per statistician. PES: Increased nutrient needs r/t current/chronic medical condition aeb intubated, sedated, mild hypoalbuminemia, NPO. Altered nutrition related lab values r/t current/chronic medical condition aeb hyperglycemia, elev. LFTs, hyperbilirubinemia, hypocalcemia and mild hypoalbuminemia Will continue to monitor NPO status, EN tolerance, skin status, pertinent labs and weight trend. F/u in 2 to 3 days. Rec.: 1.) If still NPO, consider to resume EN support at lower rate and gradually increase on feeding rate of Jevity 1.2 Ced to 65 ml/hr goal rate as tolerated while on current rate of Propofol. 2.) If Albumin level continues trending down,consider Prostat 1 pkt BID. 3.) Consider daily MVI with minerals and Asc acid 500 mgs BID prn. 4.) Advance gradually to oral diet when medically appropriate. 5.) Refer to RD for further nutrition education and weight monitoring upon discharged. 6.) Continue current plan of care.
[2018-05-19] MEDS: fentaNYL Drip 2500mCg/250mlNS 250 ML IV SCH ×2 (12:00→23:12)
--- NOTE | 2018-05-19 12:00 | NUR ---
FEEDINGS NG tube checked and verified via air bolus and aspirated 20ml of residuals. Tube feedings re-started at 10ml/hr. Will continue to titrate as tolerated by patient.
--- NOTE | 2018-05-19 16:00 | NUR ---
FEEDINGS NG tube checked and verified via air bolus and aspirated 20ml of residuals. Tube feedings continue at 10ml/hr. Will continue to titrate as tolerated by patient.
--- NOTE | 2018-05-19 17:10 | NUR ---
MD Dr. Hu in unit and aware that patients tremors to bilateral extremities have increased compared to yesterday morning. No new orders given.
[2018-05-19] MEDS: MIDAZOLAM DRIP 50 mg/50mL 50 ML IV SCH (19:04)
--- NOTE | 2018-05-19 21:00 | NUR ---
CARE ASSUMED FROM LALITO SANCHEZ.
--- NOTE | 2018-05-19 21:15 | NUR ---
ASSESSMENT: VENTED AND SEDATED ON FENTANYL AT 160 MCG/HR. THRU ZOLL CATH THRU RIGHT FEMORAL AREA. VENT: 7 FR., 23 CM AT LIP, TV- 500, PEEP +5, 30% FIO2, AC/14, SATS 96%. LUNGS COARSE BILATERALLY, SMALL AMT. OF WHITE, THIN SECRETION ORALLY. SINUS RHYTHM 68, NO ECTOPY, SBP 109/42. ABDOMEN - SOFT, (+) B.S, NO BM AT THIS TIME. AREVALO TO DD WITH CATRACHITA, CLEAR URINE. FAMILY AT BEDSIDE, DISCUSSED VISITING HOURS AND 2 VISITORS AT A TIME, PT'S MOTHER STATES SHE HAS BEEN ALLOWED TO BRING MANY VISITORS DUE TO PATIENT STATUS AT THIS TIME. QUESTIONS AND CONCERNS ADDRESSED.
--- NOTE | 2018-05-19 21:30 | NUR ---
GENERALIZED TREMORS INCREASED WITH STIMULI, PT. HAS BEEN NOTED TO BE ON A CONTINUOUS TREMULOUS STATES FOR THE PAST 2 DAYS. EYES ROLL BACK AND FLICKER TEMP 99.1, PT'S MOTHER STATES SHE DOES NOT WANT TYLENOL UNLESS NECESSARY. FAN IN PLACE.
--- NOTE | 2018-05-19 22:00 | NUR ---
ORAL CARE AND REPOSITIONED. FAMILY CONTINUES AT BEDSIDE.
[2018-05-20] VITALS (105 sets, daily range): BP systolic 97–140; BP diastolic 51–96
--- NOTE | 2018-05-20 | NUR ---
CONTINUES TO EXPERIENCE GENERALIZED TREMORS, DOES NOT FOLLOW COMMANDS BUT RESPONDS TO NOXIOUS STIMULI DEMONSTRATED BY FROWNING, MOVING HEAD SIDE TO SIDE.
[2018-05-20] MEDS: PIPERACILLIN-TAZOB 3.375GM 100 ML IV SCH ×2 (00:03→06:00)
--- NOTE | 2018-05-20 03:00 | NUR ---
BED BATH COMPLETE, HAIR WASHED.
[2018-05-20 03:49] LABS: Basophils # (auto) 0 uL; Basophils % (auto) 0.1 % (0.0-2.0); Eosinophils # (auto) 0.1 uL; Eosinophils % (auto) 1.7 % (0.0-7.0); Hematocrit 25.2 % (36.0-46.0); Hemoglobin 8.7 g/dL (12.2-16.2); Lymphocytes # (auto) 0.6 uL; Lymphocytes % (auto) 7.8 % (10.0-50.0); Mean Corpuscular Hemoglobin 30.3 pg (28.0-32.0); Mean Corpuscular Hgb Conc. 34.4 g/dL (32.0-36.0); Mean Corpuscular Volume 87.9 fL (80.0-100.0); Monocytes # (auto) 0.4 uL; Monocytes % (auto) 5.5 % (0.0-12.0); Neutrophils # (auto) 6.7 uL; Neutrophils % (auto) 84.9 % (37.0-80.0); Nucleated Red Blood Cells % 0.5 %; Platelet Count (auto) 308 10^3/uL (140-450); Red Blood Cells 2.87 10^6/uL (4.0-5.20); Red Cell Distribution Width 17.2 % (11.8-14.3); White Blood Cell 7.9 10^3/uL (4.4-10.8)
[2018-05-20 04:06] LABS: Albumin 2.6 g/dL (3.4-5.0); Calcium 7.9 mg/dL (8.5-10.1); Potassium 3.9 mmol/L (3.5-5.1)
[2018-05-20 04:10] LABS: BUN/Creatinine Ratio 23.5; Bilirubin, Total 0.7 mg/dL (0.2-1.0); Total Protein 6.1 g/dL (6.4-8.2)
[2018-05-20] MEDS: LORAZEPAM MDV 2MG/ML 50 MG in SODIUM CHL 0.9% 25 ML IV SCH (05:15)
[2018-05-20] MEDS: METOCLOPRAMIDE HCL 5MG/ml INJ 2ml VIAL IV SCH ×3 (06:00→22:00)
[2018-05-20] MEDS: PHENYTOIN SODIUM 50 MG/ML 2ML VIAL IV SCH ×3 (06:00→22:04)
--- NOTE | 2018-05-20 06:00 | NUR ---
FENTANYL UP TO 170 MCG/KG/MIN. DUE TO INCREASED TREMORS. PT. RESTING BETTER AFTERWARDS.
[2018-05-20] MEDS: NOREPINEPHRINE 8 MG/250ML KIT 250 ML IV SCH (06:08)
[2018-05-20] MEDS: PANTOPRAZOLE 40 MG/10 ML VIAL IV SCH (07:30)
--- NOTE | 2018-05-20 08:00 | NUR ---
OPENING NOTE Received patient on mechanical ventilator sedated on Fentanyl gtt at 170mcg. Patient opens eyes to tactile stimuli, withdrawals to pain, positive gag reflex and PERRLA. Sinus rhythm in the 60's-70's, pulses palpable to upper/lower extremities and edema observed to the hands and lower extremities non-pitting. NG tube to the right nare checked and verified placement via air bolus:tube feedings turned off by [facility] nurse Jameson for high residuals. Last bowel movement on 05/13/2018. Patient has tremors to bilateral lower extremities (MD aware). Pettit catheter draining to gravity light tamica urine free of kinks. Central line(Zoll) to the right femoral (TLC): good blood return and flushes easily infusing normal saline with 20meq of potassium at 125ml/hr. Blisters to the right inner thigh and preventative dressing to the sacral area. SCD's on. Oral care provided. No facial grimacing observed at this time. Will continue to monitor as tolerated by patient.
[2018-05-20] MEDS: SOD CHL 0.9%/ KCL 20MEQ 1,000 ML IV SCH ×3 (08:15→22:00)
--- NOTE | 2018-05-20 08:45 | NUR ---
MD Dr. Hu at bedside updated on patient condition with no new orders.
--- NOTE | 2018-05-20 09:35 | NUR ---
[facility] Called and spoke to Denny at /[phone] Reference number [id number]
[2018-05-20] MEDS: PROPOFOL 100 ML IV SCH (10:26)
[2018-05-20] MEDS: ASPirin 81 mg TAB PO SCH (10:28)
[2018-05-20] MEDS: LEVETIRACETAM INJ 1,500 MG in D5W 5% 100 ML IV SCH ×2 (10:28→22:04)
[2018-05-20] MEDS: ENOXAPARIN SOD 40 MG/0.4 ML SYRINGE SC SCH (10:28)
--- NOTE | 2018-05-20 10:45 | NUR ---
FAMILY Patients mother Katie and father Christofer at bedside updated on patient condition and informed themof no new changes per Dr. Hu.
--- NOTE | 2018-05-20 12:00 | NUR ---
NG TUBE Checked NG tube and verified via air bolus; aspirated more than 60ml of residuals. Tube feedings will continue to be turned off. Will continue to monitor residuals throughout shift.
--- NOTE | 2018-05-20 16:00 | NUR ---
NG TUBE Checked NG tube and verified via air bolus; aspirated 50ml of residuals. Tube feedings will continue to be turned off. Will continue to monitor residuals throughout shift.
--- NOTE | 2018-05-20 17:15 | NUR ---
FAMILY Family continues to be at bedside, questions and concerns answered.
--- NOTE | 2018-05-20 18:30 | NUR ---
TEMPERATURE Patients temperature increased to 99.9, cooling measures applied by increasing fan and cooling the room further. Will continue to monitor.
[2018-05-20] MEDS: MIDAZOLAM DRIP 50 mg/50mL 50 ML IV SCH (19:04)
--- NOTE | 2018-05-20 20:00 | NUR ---
PT ADMITTED ON 05/09/2018. INTUBATED IN ER. ETT TO VENTILATOR. RIGHT NARE NGT WITH GREEN LIQUID RESIDUAL IN SCANT AMOUNTS. ABDOMEN IS ROUND AND BOUNCY. NO BOWEL SOUNDS. AREVALO IN PLACE AND DRAINING ADEQUATE AMOUNTS OF LT CATRACHITA LIQUID. MARGIE 4 AND SLUGGISH. VEERING EYES TO THE LEFT. FEW CLEAR ORAL SECRETIONS. NOTHING SUCTIONED FROM ETT. WHEN I TURNED HER I NOTICED AN AIR LEAK. RT CHECKED THE CUFF AND ADDED SOME TO IT. THE PRESSURE IN THE ETT CUFF IS NORMAL AND SHE IS GETTING HER VOLUMES.NSR WITHOUT ECTOPY. HEART RATE RANGE SO FAR HAS BEEN 59-62. BLOOD PRESSURE RANGE HAS BEEN 104-126 SYSTOLIC. NONPITTING 2+ EDEMA OF ARMS AND LEGS. SHE HAS 2 BLISTERS TO HER RIGHT UPPER GROIN AREA WITH A FOAM DRESSING OVER IT. REMOVED THE DRESSING AND IT EXPOSED 2 BROKEN BLISTERS. AREA SPRAYED WITH WOUND CLEANSER AND NEW DRESSING APPLIED. RIGHT FEMORAL ZOLL CENTRAL LINE DRESSING IS CLEAN AND DRY. PATIENT IS ON FENTANYL AND A MAINTENANCE FLUID WITH KCL. RESPIRATORY CULTURE +. ALL OTHER CULTURES ARE NEGATIVE. SCDS ON. FAN ON PATIENT. RECTAL PROBE IN. TEMP RANGING FROM 99.3 - 99.9. NO CALL FROM [facility]
--- NOTE | 2018-05-20 22:00 | NUR ---
MOM AND DAD IN ROOM. PATIENT GETTING VOLUMES. PIP 28-32. NOTHING SUCTIONED FROM ETT. DILANTIN LEVEL NORMAL. DILANTIN GIVEN
--- NOTE | 2018-05-20 23:00 | NUR ---
PIP 44. SUCTIONED ETT FOR A MODERATE AMOUNT OF WHITE SECRETIONS. MOM STATED THAT HER DAUGHTER IS AN ORGAN DONOR ON HER DRIVERS LICENSE
[2018-05-21] VITALS (102 sets, daily range): BP systolic 102–147; BP diastolic 51–95
--- NOTE | 2018-05-21 | NUR ---
RT RESET THE VENTILATOR. PATIENT BAGGED FOR 10 MINUTES. RESP TX GIVEN FOR 89% SATURATION. INCREASED THE FIO2 TO 60%. SUCTIONED ETT FOR A SMALL AMOUNT OF WHITE SECRETIONS. ABDOMEN ROUND. NO CHANGE IN SOFTNESS. NO BM. URINE CATRACHITA. NSR WITHOUT ECTOPY. REPOSITIONED. ORAL CARE.
[2018-05-21] MEDS: ALBUTEROL SULF 2.5 MG/0.5ML(0.5%) NEB SOLN NEB PRN ×3 (00:48→11:28)
--- NOTE | 2018-05-21 02:00 | NUR ---
HEART RETURNING TO THE 70S. FIO2 30% WITH A SATURATION OF 94%. RESTING QUIETLY. LOWER LEGS CONTINUE TO REPETITIVELY TREMOR. ORAL CARE. SUCTIONED ETT FOR NO SECRETIONS. PIP 28. PERSISTENT EDEMA IN ARMS AND LEGS. VSS.
--- NOTE | 2018-05-21 03:50 | NUR ---
SCHUYLER POSADAS AND SERGEI DRAWN
--- NOTE | 2018-05-21 04:00 | NUR ---
VSS. CONTINUES TO HAVE BODY TREMORS. SUCTIONING THICK WHITE FROM ETT. NSR WITHOUT ECTOPY. ABDOMEN ROUND AND SOFT. NO BM. AREVALO DRAINING CLEAR CATRACHITA LIQUID TO DOWN DRAIN BAG. GENERALIZED EDEMA 2+. CONTINUES ON FENTANYL AND MAINTENANCE FLUID. IV SHOWS NO REDNESS OR SWELLING.
[2018-05-21 04:11] LABS: Basophils # (auto) 0 uL; Basophils % (auto) 0.1 % (0.0-2.0); Eosinophils # (auto) 0.1 uL; Eosinophils % (auto) 1.6 % (0.0-7.0); Hematocrit 24.1 % (36.0-46.0); Hemoglobin 8.3 g/dL (12.2-16.2); Lymphocytes # (auto) 0.6 uL; Lymphocytes % (auto) 6.5 % (10.0-50.0); Mean Corpuscular Hemoglobin 30.8 pg (28.0-32.0); Mean Corpuscular Hgb Conc. 34.7 g/dL (32.0-36.0); Mean Corpuscular Volume 88.7 fL (80.0-100.0); Monocytes # (auto) 0.4 uL; Monocytes % (auto) 4.7 % (0.0-12.0); Neutrophils # (auto) 7.5 uL; Neutrophils % (auto) 87.1 % (37.0-80.0); Nucleated Red Blood Cells % 0.5 %; Platelet Count (auto) 321 10^3/uL (140-450); Red Blood Cells 2.71 10^6/uL (4.0-5.20); Red Cell Distribution Width 17.2 % (11.8-14.3); White Blood Cell 8.6 10^3/uL (4.4-10.8)
[2018-05-21] MEDS: SOD CHL 0.9%/ KCL 20MEQ 1,000 ML IV SCH ×3 (04:15→21:57)
[2018-05-21 04:41] LABS: BUN/Creatinine Ratio 16.7
[2018-05-21] MEDS: LORAZEPAM MDV 2MG/ML 50 MG in SODIUM CHL 0.9% 25 ML IV SCH (05:15)
[2018-05-21] MEDS: fentaNYL Drip 2500mCg/250mlNS 250 ML IV SCH (05:52)
[2018-05-21] MEDS: PHENYTOIN SODIUM 50 MG/ML 2ML VIAL IV SCH ×3 (05:53→21:41)
[2018-05-21] MEDS: METOCLOPRAMIDE HCL 5MG/ml INJ 2ml VIAL IV SCH ×3 (05:53→21:41)
[2018-05-21] MEDS: NOREPINEPHRINE 8 MG/250ML KIT 250 ML IV SCH (06:08)
--- NOTE | 2018-05-21 07:30 | NUR ---
Family updated on pt status Family of AGUILAR STRANGE updated on patient's status and condition. All questions and concerns addressed. Mother verbalized understanding.
--- NOTE | 2018-05-21 07:34 | NUR ---
[facility] FOLLOW UP REPORT RECEIVED, PT VENTED/ ON FENT GTT. VSS AT THIS TIME. PER REPORT, FAMILY IS LEANING TOWARD TERMINAL WEANING AT THIS POINT BUT WOULD LIKE INFORMATION ON ORGAN DONATION. [facility] CALLED, REF# PROVIDED. PER JUDD SHE WILL CALL BACK WITHIN THE NEXT HR OR SO TO INFORM IF SHE CAN SEND A CELL ASSEMBLY PINNER OUT BY THE AFTERNOON OR IF IT WILL BE OVER PHONE. Addendum: 05/21/18 at 1005 by Laurel Álvarez RN [facility] CALLED BACK STATING THEY WILL ARRIVE WITHIN THE NEXT HR.
[2018-05-21] MEDS: PROPOFOL 100 ML IV SCH (07:40)
--- NOTE | 2018-05-21 07:47 | NUR ---
DR. LEE AT BEDSIDE MD AWARE OF TREMORS NOTED THROUGHOUT. MD AWARE OF FENT GTT IN PLACE. PER MD OK TO START VERSED GTT IF TREMORS CONTINUE.
--- NOTE | 2018-05-21 08:00 | NUR ---
Cooling Measures applied. Patient currently has temp of 100.0 , cooling measures in place.
--- NOTE | 2018-05-21 09:00 | NUR ---
TUBE FEEDINGS GASTRIC RESIDUAL CHECKED VIA NG. 10ML OF GASTRIC CONTENTS ASPIRATED. FEEDINGS TO REMAIN AT 15ML/HR. ASPIRATION PRECAUTIONS IN PLACE.
--- NOTE | 2018-05-21 10:03 | NUR ---
Family updated on pt status Family of ALEXYSMARJORIEAGUILAR updated on patient's status and condition. All questions and concerns addressed. Mother verbalized understanding. Mother informed of conversation with [facility] and her wish to speak to a client service representative. Mother aware rep will be here within the next hr. Mother verbalized understanding.
[2018-05-21] MEDS: LEVETIRACETAM INJ 1,500 MG in D5W 5% 100 ML IV SCH ×2 (10:50→21:40)
[2018-05-21] MEDS: PANTOPRAZOLE 40 MG/10 ML VIAL IV SCH (10:50)
[2018-05-21] MEDS: ASPirin 81 mg TAB PO SCH (10:50)
--- NOTE | 2018-05-21 11:00 | NUR ---
[facility]/ FAMILY [facility] [employer] CONSULTANT MENDOZA INTRODUCED TO MOTHER AND FATHER. FAMILY TAKEN OVER TO MEETING ROOM FOR PRIVACY. PER MENDOZA GENERAL INFORMATION AND QUESTIONS WERE REVIEWED. AN ADDITIONAL MEETING WILL BE ON 05/22/18 AT 1000 WITH ADDITIONAL FAMILY MEMBERS FOR DECISION TO BE MADE. [facility] [employer] CONSULTANT TO ARRIVE TONIGHT OR IN A.M. TO REVIEW CHART FURTHER. DR. WESLEY GAVIRIA.
[2018-05-21] MEDS: MIDAZOLAM DRIP 50 mg/50mL 50 ML IV SCH (13:19)
--- NOTE | 2018-05-21 14:30 | NUR ---
TREMORS PATIENT HAVING TREMORS NOTED TO BILATERAL LOWER EXTREMITIES. HR NOTED TO INCREASE TO ST 110-115, RR 22-27. FENT. INCREASED FOR COMFORT. SEE IV SPREADSHEET.
--- NOTE | 2018-05-21 15:32 | NUR ---
Nutrition Follow-up Notes Wt.: 82.4 kg today. Noted 12.4 kg weight gain in last 2 days likely d/t ? fluid retention aeb positive I & Os for past few days. Pt remains intubated, sedated, currently NPO, with EN support with Jevity 1.2 Ced @ 15 ml/hr providing 432 kcal, 20 gms pro and 291 ml free water, tolerates feeding with 10 ml residuals noted this morning, per nursing. Pt with inadequate EN support d/t low initiation rate delivery of concentrated formula aeb current EN infusion meets 22% to 25% of est caloric needs and 23% to 29% of est protein needs. Noted pt's plan for possible Trach or PEG tube placement. Est. Needs reassessed based on CBWt (68 kg): 1700 kcal to 2000 kcal (25-30 kcal/kgIBW), 68 gms to 88 gms pro (1.0-1.3 gms/kgBW d/t mod hypoalbuminemia). Will continue to monitor pertinent labs and reassess nutrient need prn Labs: Cl 111 H, BUN 5 L, Cr 0.30 L, Ca 8.0 L, AST 41 H, Tpro 6.1 L, Alb 2.6 L Skin: Patrice scale 16, mod risk, pt's right upper medial thigh intact blister, serum filled per billing department supervisor. Pls refer to quality supervisor's notes (05/18/18) for further details. GI: Pt had 1 BM 05/13/18 per billing department supervisor. PES: Increased nutrient needs r/t current/chronic medical condition aeb intubated, sedated, mild hypoalbuminemia, NPO. Altered nutrition related lab values r/t current/chronic medical condition aeb hyperglycemia, elev. LFTs, hyperbilirubinemia, hypocalcemia and mild hypoalbuminemia Will continue to monitor NPO status, EN tolerance, skin status, pertinent labs and weight trend. F/u in 2 to 3 days. Rec.: 1.) If still NPO with EN support, consider gradual increase on feeding rate of Jevity 1.2 Ced to 65 ml/hr goal rate as tolerated when medically appropriate. 2.) If Albumin level continues trending down,consider Prostat 1 pkt BID. 3.) Consider daily MVI with minerals and Asc acid 500 mgs BID prn. 4.) Advance gradually to oral diet when medically appropriate. 5.) Refer to RD for further nutrition education and weight monitoring upon discharged. 6.) Continue current plan of care.
[2018-05-21] MEDS ORDERED: FLEET ENEMA(ADULT) 135 ML PR ONE (17:00)
--- NOTE | 2018-05-21 17:30 | NUR ---
MD PAGED PAGED TO NOTIFY PATIENT HAS NOT HAD A BM, LAST DOCUMENTED 05/13 AND ABD. APPEARS SLIGHTLY DISTENDED. MD CALLBACK. NEW ORDER IN PLACE.
--- NOTE | 2018-05-21 18:00 | NUR ---
TUBE FEEDINGS NO GASTRIC RESIDUAL. TF INCREASED TO 20ML/HR. ASPIRATION PRECAUTIONS REMAIN IN PLACE.
--- NOTE | 2018-05-21 18:30 | NUR ---
ELIMINATION PATIENT GIVEN FLEETS ENEMA, SHORTLY AFTER PATIENT HAD A SMALL AMOUNT OF BROWN LIQUID STOOL. PARTIAL LINEN CHANGE COMPLETE. SKIN REMAINS PINK TO RYANNE AREA, ZGAURD APPLIED. OPTIFOAM REMAINS IN PLACE. MOTHER AT BEDSIDE AWARE OF SKIN APPEARS.
--- NOTE | 2018-05-21 20:00 | NUR ---
Opening note Received pt on mechanical ventilator. Sedated on Fentanyl at 180mcg. Bilateral tremors observed in lower extremities. Pt's eyes are closed, does not respond to verbal stimuli. Opens eyes upon oral care. Does not track. Pupils are round and reactive. positive gag reflex. Sinus tachycardia noted on bedside monitor. NGT to right nare, patent and verified placement. Generalized edema observed. non-pitting. Central line (zol) to right groin, Line flushes easily and good blood return. Bilateral scd's applied to lower extremities. Blister to right inner thigh with reddened rosibel area and worsening skin chafing to bilateral inner thigh/ groin area. Wound care pictures taken. Z-guard cream applied. Optifoam to sacrum for preventative measure. Will continue to monitor closely. Pt in full view of RN. Family at bedside.
--- NOTE | 2018-05-21 20:10 | NUR ---
Temperature Pt has temperature of 100.6, cooling measures applied.
--- NOTE | 2018-05-21 20:20 | NUR ---
Family at bedside Updated on POC, all questions and concerns addressed at this time.
--- NOTE | 2018-05-21 21:00 | NUR ---
Tube Feeding TF turned on at this time at 20 ccs/hr, will monitor residuals.
[2018-05-22] VITALS (87 sets, daily range): BP systolic 95–131; BP diastolic 50–87
--- NOTE | 2018-05-22 02:00 | NUR ---
IV insertion of 2 20 g catheters to left upper forearm and lower left forearm. Zoll catheter been in place since 05/09/18, will discuss with MD of taking the catheter out.
--- NOTE | 2018-05-22 04:00 | NUR ---
Residuals Pt has had <10 mls of gastric residuals with TF.
[2018-05-22 04:28] LABS: Basophils # (auto) 0 uL; Basophils % (auto) 0.1 % (0.0-2.0); Eosinophils # (auto) 0.1 uL; Monocytes # (auto) 0.6 uL; Nucleated Red Blood Cells % 0.2 %; White Blood Cell 13.7 10^3/uL (4.4-10.8)
[2018-05-22 04:30] LABS: Lymphocytes # (auto) 0.6 uL; Lymphocytes % (auto) 4.1 % (10.0-50.0); Monocytes % (auto) 4.6 % (0.0-12.0); Neutrophils # (auto) 12.3 uL; Neutrophils % (auto) 90.2 % (37.0-80.0); Red Blood Cells 2.65 10^6/uL (4.0-5.20)
[2018-05-22 04:31] LABS: Hematocrit 23.5 % (36.0-46.0); Mean Corpuscular Hemoglobin 30.3 pg (28.0-32.0); Mean Corpuscular Hgb Conc. 34.2 g/dL (32.0-36.0); Mean Corpuscular Volume 88.7 fL (80.0-100.0); Platelet Count (auto) 336 10^3/uL (140-450); Red Cell Distribution Width 17.9 % (11.8-14.3)
[2018-05-22 04:38] LABS: Albumin 2.5 g/dL (3.4-5.0); Potassium 3.7 mmol/L (3.5-5.1)
[2018-05-22 04:41] LABS: BUN/Creatinine Ratio 12.9; Calcium 7.6 mg/dL (8.5-10.1)
--- NOTE | 2018-05-22 05:00 | NUR ---
Patient bathe/linen change Patient given complete bath. Skin integrity assessed for any changes. Linens changed. Patient repositioned for comfort.
[2018-05-22] MEDS: LORAZEPAM MDV 2MG/ML 50 MG in SODIUM CHL 0.9% 25 ML IV SCH (05:15)
[2018-05-22] MEDS: PHENYTOIN SODIUM 50 MG/ML 2ML VIAL IV SCH ×3 (05:59→22:17)
[2018-05-22] MEDS: METOCLOPRAMIDE HCL 5MG/ml INJ 2ml VIAL IV SCH ×3 (05:59→22:17)
[2018-05-22] MEDS: SOD CHL 0.9%/ KCL 20MEQ 1,000 ML IV SCH ×3 (05:59→22:18)
--- NOTE | 2018-05-22 07:26 | NUR ---
Care endorsed to LAURA Arenas
--- NOTE | 2018-05-22 08:00 | NUR ---
OPENING NOTE Received patient on mechanical ventilator sedated on Fentanyl gtt at 180mcg. Patient opens eyes to tactile stimuli,doesn't follow commands or trace, withdrawals to pain, positive gag reflex and PERRLA. Sinus rhythm in the 70's-80's, pulses palpable to upper/lower extremities and edema observed to the hands and lower extremities non-pitting. NG tube to the right nare checked and verified placement via air bolus:tube feedings on at 15ml/hr;aspirated residuals of 10ml: will continue tube feedings at current rate and will continue to monitor residuals/increase rate as tolerated by patient. Last bowel movement on 05/21/2018. Patient has tremors to bilateral lower extremities and increases to stimulation (MD aware). Pettit catheter draining to gravity light tamica urine free of kinks. Central line(Zoll) to the right femoral (TLC): good blood return and flushes easily infusing normal saline with 20meq of potassium at 125ml/hr; IV's to the left forearm 20g X2. Blisters to the right inner thigh and preventative dressing to the sacral area, and rosibel area moisture dermitis observed. Patient temperature at 100.4 and cooling measures applied and room temperature cooled. SCD's on. Oral care provided. No facial grimacing observed at this time. Will continue to monitor as tolerated by patient.
[2018-05-22] MEDS: fentaNYL Drip 2500mCg/250mlNS 250 ML IV SCH ×2 (08:45→22:18)
[2018-05-22] MEDS: NOREPINEPHRINE 8 MG/250ML KIT 250 ML IV SCH (09:15)
--- NOTE | 2018-05-22 09:15 | NUR ---
FAMILY Family at bedside updated on patient condition.
--- NOTE | 2018-05-22 10:00 | NUR ---
MD Dr. Lainez paged per [facility] Leonard SANCHEZ who would like to speak to him, spoke to MD and states " will be here shortly."
[2018-05-22] MEDS: PROPOFOL 100 ML IV SCH (10:16)
[2018-05-22] MEDS: LEVETIRACETAM INJ 1,500 MG in D5W 5% 100 ML IV SCH ×2 (10:16→22:17)
[2018-05-22] MEDS: ASPirin 81 mg TAB PO SCH (10:16)
[2018-05-22] MEDS: PANTOPRAZOLE 40 MG/10 ML VIAL IV SCH (10:16)
--- NOTE | 2018-05-22 11:25 | NUR ---
[facility] Valle RN spoke to family regarding organ donations and informed family that patient is not a candidate for organ donation.
--- NOTE | 2018-05-22 12:00 | NUR ---
NUTRITION NG tube checked and verified via air bolus, aspirated zero residuals. Increased tube feedings to 20ml/hr will continue to titrate rate as tolerated by patient.
--- NOTE | 2018-05-22 13:30 | NUR ---
MD Dr. Hu at bedside updated on patient condition and spoke to family regarding next step either trach/peg or terminal wean. MD answered questions and concerns.
--- NOTE | 2018-05-22 13:45 | NUR ---
MD Dr. Hu at bedside updated on patient condition and spoke to family regarding the time has come to decided on either Trach/PEG vs. terminal wean. No answer given by family at this time.
--- NOTE | 2018-05-22 15:00 | NUR ---
MD/FAMILY Called and spoke to Dr. Lainez regarding removing Zoll catheter to the right femoral MD states " Lets wait until family decides on what they want to do then we can think about what to do with the Zoll catheter." Also informed MD that patients mother Katie would like to transfer patient to a closer facility to her then decide on Trach/PEG vs. terminal weaning. states " we cant do that at this time." Informed Katie of what stated regarding her concern.
--- NOTE | 2018-05-22 16:30 | NUR ---
WOUND CARE Called wound care nurse and spoke to her regarding seeing patient. Wound care nurse unable to come up at this time but will see patient first thing in the morning. Informed patients mother Katie.
[2018-05-22] MEDS: MIDAZOLAM DRIP 50 mg/50mL 50 ML IV SCH (19:04)
[2018-05-23] VITALS (51 sets, daily range): BP systolic 80–154; BP diastolic 49–91
[2018-05-23] MEDS: ACETAMINOPHEN 325 MG TAB PO PRN (01:54)
[2018-05-23] MEDS: LORAZEPAM MDV 2MG/ML 50 MG in SODIUM CHL 0.9% 25 ML IV SCH (05:15)
[2018-05-23] MEDS: NOREPINEPHRINE 8 MG/250ML KIT 250 ML IV SCH (05:29)
[2018-05-23] MEDS: SOD CHL 0.9%/ KCL 20MEQ 1,000 ML IV SCH ×2 (05:30→13:48)
[2018-05-23] MEDS: PHENYTOIN SODIUM 50 MG/ML 2ML VIAL IV SCH ×3 (05:32→23:09)
[2018-05-23] MEDS: METOCLOPRAMIDE HCL 5MG/ml INJ 2ml VIAL IV SCH ×4 (05:32→23:09)
[2018-05-23] MEDS: PANTOPRAZOLE 40 MG/10 ML VIAL IV SCH (07:00)
--- NOTE | 2018-05-23 07:45 | NUR ---
NEURO PATIENT OPENS EYES TO TOUCH, NO TRACKING NOTED. MYOCLONIC TREMORS NOTED OF LOWER BODY. PERRLA 3MM ET BRISK. POSITIVE COUGH/GAG NOTED WITH SUCTIONING. NO SPONTANEOUS MOVEMENTS NOTED OF EXTREMITIES.
[2018-05-23 08:29] LABS: Basophils # (auto) 0 uL; Basophils % (auto) 0.1 % (0.0-2.0); Eosinophils # (auto) 0.3 uL; Eosinophils % (auto) 2.2 % (0.0-7.0)
[2018-05-23 08:30] LABS: Lymphocytes # (auto) 0.7 uL; Lymphocytes % (auto) 5.7 % (10.0-50.0); Monocytes # (auto) 0.7 uL; Monocytes % (auto) 5.6 % (0.0-12.0); Neutrophils % (auto) 86.4 % (37.0-80.0); Nucleated Red Blood Cells % 0.2 %; Platelet Count (auto) 330 10^3/uL (140-450); Red Cell Distribution Width 18.5 % (11.8-14.3); White Blood Cell 11.6 10^3/uL (4.4-10.8)
[2018-05-23 08:33] LABS: Hematocrit 23.7 % (36.0-46.0); Hemoglobin 7.9 g/dL (12.2-16.2); Mean Corpuscular Hemoglobin 29.9 pg (28.0-32.0); Mean Corpuscular Hgb Conc. 33.4 g/dL (32.0-36.0); Mean Corpuscular Volume 89.3 fL (80.0-100.0); Red Blood Cells 2.65 10^6/uL (4.0-5.20)
[2018-05-23 08:45] LABS: BUN/Creatinine Ratio 14.3; Calcium 7.8 mg/dL (8.5-10.1); Potassium 3.8 mmol/L (3.5-5.1)
--- NOTE | 2018-05-23 09:30 | NUR ---
DR GALDAMEZ VISITS AND EXAMINES PATIENT - NO ORDERS RECEIVED.
[2018-05-23] MEDS: fentaNYL Drip 2500mCg/250mlNS 250 ML IV SCH (09:39)
[2018-05-23] MEDS: ASPirin 81 mg TAB PO SCH (10:04)
[2018-05-23] MEDS: PROPOFOL 100 ML IV SCH (10:29)
[2018-05-23] MEDS: LEVETIRACETAM INJ 1,500 MG in D5W 5% 100 ML IV SCH ×2 (11:00→23:08)
--- NOTE | 2018-05-23 11:15 | NUR ---
WOUND CARE NURSE EXAMINES PATIENT - ORDERS RECEIVED.
--- NOTE | 2018-05-23 11:20 | NUR ---
WOUND CARE NOTE: IN TO SEE PATIENT AT THIS TIME FOR NEW SKIN INTGRITY CONCERN. PATIENT HAS DEVELOPED AN ERYTHEMIC AREA TO BILATERAL MEDIAL UPPER THIGHS, PERINEUM. THIS APPEARS TO BE INTERTRIGO. THERE IS A RESOLVING OPEN BLISTER. NO OTHER SKIN INTEGRITY ISSUE NOTED AT THIS TIME. PATIENT WOULD BENEFIT FROM BID APPLICATION WITH NYSTATIN POWDER TO INTERTRIGINOUS RASH AREAS OF BILATERAL UPPER MEDIAL THIGHS/PERINEUM. WOUND CARE TEAM WILL CONTINUE TO MONITOR.
[2018-05-23] MEDS: MIDAZOLAM DRIP 50 mg/50mL 50 ML IV SCH (14:21)
--- NOTE | 2018-05-23 15:13 | NUR ---
PATIENT'S MOTHER NOTIFIED DEPUTY EDITOR IN CHIEF THAT FAMILY HAS DECIDED ON TERMINAL WEANING FOR PATIENT - CALL PLACED TO DR GALDAMEZ.
[2018-05-23] MEDS ORDERED: LORazepam 2MG/ML-1ML VIAL IV PRN ×2 (16:15→17:30)
--- NOTE | 2018-05-23 16:27 | NUR ---
PATIENT MEDICATED WITH MORPHINE 2MG IVP ET THEN EXTUBATED PER RT - O2 APPLIED AT 3L PER NC. PATIENT WALT PROCEDURE WELL. PATIENT'S PARENTS AND FAMILY RETURNED TO ROOM AFTER EXTUBATION COMPLETE. TF TURNED OFF. SEE IV FLOWSHEET FOR IV MEDICATION.
[2018-05-23] MEDS: LORazepam 2MG/ML-1ML VIAL IV PRN ×4 (17:07→23:09)
--- NOTE | 2018-05-23 17:30 | NUR ---
ATIVAN GIVEN IVP FOR TACHYPNEA ET INCREASE IN MYOCLONIC TREMORS AFTER FENTANYL GTT STOPPED - EFFECTIVE FOR PATIENT.
--- NOTE | 2018-05-23 17:45 | NUR ---
DR BLANCHARD UPDATED ON PATIENT TOLERANCE OF TERMINAL WEANING - ORDERS RECEIVED.
[2018-05-23] MEDS ORDERED: SODIUM CHLORIDE 0.9% 1,000 ML IV SCH (18:00)
--- NOTE | 2018-05-23 18:30 | NUR ---
PATIENT SUCTIONED ORALLY FREQ OF SM AMT'S THIN WHITE SECRETIONS. STRONG COUGH NOTED - PATIENT ABLE TO EXPECTORATE SECRETIONS TO PHARYNX. MUCH SUPPORT PROVIDED TO PATIENT'S MOTHER ET FAMILY THIS SHIFT.
--- NOTE | 2018-05-23 19:15 | NUR ---
OPEN ASSUMED CARE, FULL ASSESSMENT DONE; SEE INTERVENTIONS. FAMILY AT BEDSIDE, UPDATED ON POC. ORAL CARE AND REPOSITIONING DONE. CONTINUE CARE.
[2018-05-23] MEDS: MORPHINE SULFATE 4 MG/ML SYR/VIAL IV PRN ×2 (20:02→23:08)
[2018-05-23] MEDS: ACETAMINOPHEN 650 MG RECT SUPP PR PRN (21:00)
--- NOTE | 2018-05-23 21:00 | NUR ---
Received report from [facility] patient will be coming to floor soon to room 206 DNR, Terminal wean
--- NOTE | 2018-05-23 21:20 | NUR ---
PT. TRANSFERRED TO 206 ON , REPORT GIVEN TO LAURA ROMO. CARE ENDORSED. PT'S MOM AT BEDSIDE.
--- NOTE | 2018-05-23 21:30 | NUR ---
Assessment Patient opens eyes to tactile stimuli, doesn't follow commands or trace, withdrawals to pain, positive gag reflex and PERRLA. Sinus Tachy 115's, pulses palpable to upper/lower extremities and edema observed to the hands and lower extremities non-pitting. Last bowel movement on 05/21/2018 per report. Patient has tremors to bilateral lower extremities and increases to stimulation. Pettit catheter draining to gravity light tamica urine free of kinks. Blisters to the right inner thigh and preventative dressing to the sacral area, and rosibel area moisture dermitis observed. Cooling measures applied and room temperature cooled for elevated temperature, patient was given Tylenol will reassess. Oral care provided. No facial grimacing observed at this time. Family at bedside. Will continue to monitor as tolerated by patient.
[2018-05-24] MEDS: NYSTATIN TOPICAL POWDER 15GM TOP SCH ×3 (00:35→22:00)
[2018-05-24] MEDS: MORPHINE SULFATE 4 MG/ML SYR/VIAL IV PRN ×13 (01:33→23:51)
[2018-05-24] MEDS: LORazepam 2MG/ML-1ML VIAL IV PRN ×13 (01:33→23:51)
[2018-05-24] MEDS: METOCLOPRAMIDE HCL 5MG/ml INJ 2ml VIAL IV SCH ×3 (06:30→22:24)
[2018-05-24] MEDS: PANTOPRAZOLE 40 MG/10 ML VIAL IV SCH (06:31)
[2018-05-24] MEDS: PHENYTOIN SODIUM 50 MG/ML 2ML VIAL IV SCH ×3 (06:52→22:24)
--- NOTE | 2018-05-24 07:30 | NUR ---
Care endorsed to LAURA Brown
--- NOTE | 2018-05-24 07:30 | NUR ---
Report received. Patient lying in bed. Eyes are closed and patient does not respond to verbal stimuli. Tremors noted to body. O2 in place. Central line noted to right groin, fluids infusing. Pettit catheter in place. Family member at bedside. Call light in reach. Will continue to monitor.
[2018-05-24 09:00] VITALS: BP 149/87
--- NOTE | 2018-05-24 09:00 | NUR ---
Patient's mother is requesting that the patient be medicated frequently with MS and Ativan for the patient's comfort. Call light in reach. Mother encouraged to call for assist as needed. Will continue to monitor.
[2018-05-24] MEDS: ACETAMINOPHEN 650 MG RECT SUPP PR PRN ×2 (10:24→18:21)
[2018-05-24] MEDS: LEVETIRACETAM INJ 1,500 MG in D5W 5% 100 ML IV SCH ×2 (10:39→22:24)
[2018-05-24] MEDS ORDERED: GLYCOPYRROLATE 0.2 MG/ML 1ML VIAL IV ONE (11:15)
--- NOTE | 2018-05-24 11:15 | NUR ---
Dr. Lainez in to see patient as hospitalist. He spoke with parents at bedside. Mother requesting that MS an Ativan be given more often for the patient's comfort. MS and Ativan changed to IV Q1H PRN. Parents requesting that these be given every hour. Will continue to monitor.
[2018-05-24 13:00] VITALS: BP 131/67
--- NOTE | 2018-05-24 15:47 | NUR ---
Dr. Hu in to see patient for neurology. He spoke with family at bedside.
[2018-05-24 17:00] VITALS: BP 109/59
--- NOTE | 2018-05-24 17:35 | NUR ---
Patient is DNR, comfort measures only. Family is at bedside.
--- NOTE | 2018-05-24 18:41 | NUR ---
Patient medicated frequently with MS and Ativan for comfort. Tylenol suppository given X 2 for fever. Family at bedside. Will continue to monitor.
--- NOTE | 2018-05-24 20:52 | NUR ---
FAMILY ASSISTED WITH TURNING PATIENT TO LEFT SIDE. SUCTIONING PROVIDED AT THIS TIME. PATIENT PRESENTING WITH WHAT APPEARS TO BE TREMORS.
--- NOTE | 2018-05-24 22:00 | NUR ---
ORAL CARE PROVIDED AT THIS TIME.
[2018-05-25] MEDS: LORazepam 2MG/ML-1ML VIAL IV PRN ×15 (00:40→23:03)
[2018-05-25] MEDS: MORPHINE SULFATE 4 MG/ML SYR/VIAL IV PRN ×15 (00:40→23:04)
[2018-05-25] MEDS: ACETAMINOPHEN 650 MG RECT SUPP PR PRN (01:35)
--- NOTE | 2018-05-25 01:35 | NUR ---
FEVER OF 100.2 SUPPOSITORY ADMINISTERED. PATIENT CONTINUES TO HAVE SPORADIC TREMORS.
[2018-05-25 05:26] VITALS: BP 106/66
[2018-05-25] MEDS: PHENYTOIN SODIUM 50 MG/ML 2ML VIAL IV SCH ×3 (06:15→23:02)
[2018-05-25] MEDS: METOCLOPRAMIDE HCL 5MG/ml INJ 2ml VIAL IV SCH ×3 (06:16→22:00)
[2018-05-25] MEDS: PANTOPRAZOLE 40 MG/10 ML VIAL IV SCH (07:29)
[2018-05-25] MEDS: ALBUTEROL SULF 2.5 MG/0.5ML(0.5%) NEB SOLN NEB PRN ×2 (08:54→19:16)
[2018-05-25 09:00] VITALS: BP 113/69
[2018-05-25] MEDS: NYSTATIN TOPICAL POWDER 15GM TOP SCH ×2 (09:04→23:03)
[2018-05-25] MEDS: LEVETIRACETAM INJ 1,500 MG in D5W 5% 100 ML IV SCH ×2 (09:13→23:02)
--- NOTE | 2018-05-25 11:35 | NUR ---
SS consult to discuss possible hospice per Mother's request. Provided information to mother, father, and additional family member in the room regarding hospice program. Mother , Irene, considering taking pt home on hospice with her but has questions regarding the process for discharge. Explained to mother that pt currently has no insurance and that [facility], [facility] hospice care sales consultant, still needed additional paperwork to complete [facility] process. Discussed with all present that because pt has no insurance that all of pt's post hospital needs would have to be covered out of pocket unless a company or agency would be willing to provide the care in advance of [facility] being approved. Explained to mother that I would reach out to a hospice agency for the [facility] where the mother resides for possible acceptance as a pro jimi pt onto service. Also discussed potentiality of a discharge for the end of the week if pt was accepted onto service. Mother stated she was concerned that she would be alone with pt's care. Family and friends present who stated they would be there to help and other family members as well. Mother verbalized agreeance with contacting hospice agency that would be willing to do the above. Contacted Bety Uriostegui, local internet marketing specialist, for [facility] that also has a office in the [facility]. Bety will make contact with the patient in the morning to discuss hospice program.
[2018-05-25 13:00] VITALS: BP 110/68
--- NOTE | 2018-05-25 13:38 | NUR ---
Humidifier connected d/t scant amount of epistaxis Patient on 2LPM NC. Prefilled humidifier attached for comfort. Family at bedside.
--- NOTE | 2018-05-25 15:25 | NUR ---
Nutrition Follow-up Notes Wt.: 67.0 kg based on bed scale as of today. Pt's terminally extubated (05/23/18), on oxygen via nasal cannula, family members at bedside during rounds this morning. Pt's currently NPO, off from EN support, noted with DNR status and for comfort measures only. Est. Needs reassessed based on CBWt (68 kg): 1700 kcal to 2000 kcal (25-30 kcal/kgIBW), 68 gms to 88 gms pro (1.0-1.3 gms/kgBW d/t mod hypoalbuminemia). Will continue to monitor pertinent labs and reassess nutrient need prn Labs: No new labs since 05/23/18 Cl 1110H, BUN 4 L, Cr 0.29 L, Ca 7.8 L, AST 44 H, Tpro 6.0 L, Alb 2.5 L Skin: Patrice scale 9, high risk, pt's right upper medial thigh intact blister, serum filled per office communication professor. Pls refer to night shift supervisor's notes (05/23/18) for further details. GI: Pt had 1 BM 05/21/18 per office communication professor. PES: Increased nutrient needs r/t current/chronic medical condition aeb intubated, sedated, mild hypoalbuminemia, NPO. Altered nutrition related lab values r/t current/chronic medical condition aeb hyperglycemia, elev. LFTs, hyperbilirubinemia, hypocalcemia and mild hypoalbuminemia Will continue to monitor NPO status, skin status, pertinent labs and weight trend. F/u in 2 to 3 days. Rec.: 1.) If still NPO, consider to resume EN support of Jevity 1.2 Ced to 65 ml/hr goal rate as tolerated if medically appropriate. 2.) Continue current plan of care.
--- NOTE | 2018-05-25 16:27 | NUR ---
Oral care provided Patient tolerated well. Family at bedside.
[2018-05-25 17:00] VITALS: BP 122/82
--- NOTE | 2018-05-25 18:42 | NUR ---
End of shift patient resting in bed with eyes closed, respirations even and unlabored on 2LPM NC with humidifier. Fall precautions in place with bed in low locked position. Patient's mother is at bedside. Pettit catheter patent and draining. Patient has been turned q2hr & PRN throughout the shift. Will endorse care to RN.
--- NOTE | 2018-05-25 19:02 | NUR ---
Paged RT for breathing treatment
--- NOTE | 2018-05-25 19:15 | NUR ---
RE: fax to [facility] Requested Syed, principal secretary, to fax patient's face sheet to [facility] per the request of the patients assigned social worker palliative care. Fax number is [phone]. Notified Maria Victoria Freeman RN.
--- NOTE | 2018-05-25 19:20 | NUR ---
ASSUMED PATIENT CARE- NOC SHIFT PATIENT IS UNRESPONSIVE. PATIENT IS IN BED, BED IS LOCKED IN LOWEST POSITION. PATIENT PRESENTS WITH GENERALIZED BODY TREMORS. FAMILY IS AT BEDSIDE. WILL CONTINUE TO MONITOR Q1H AND PRN.
--- NOTE | 2018-05-25 19:21 | NUR ---
Endorsed care to Maria Victoria Freeman
[2018-05-25 22:00] VITALS: BP 128/75
--- NOTE | 2018-05-25 22:00 | NUR ---
ORAL CARE, RYANNE CARE, CATHETER CARE, PM CARE PROVIDED. PATIENT IS BEING REPOSITIONED AND TURNED Q2H. MOTHER STAYS WITH PATIENT AT BEDSIDE. TEACHING MOTHER HOW TO CARE FOR PATIENT FREQUENTLY. ALL QUESTIONS AND CONCERNS ADDRESSED, ENCOURAGED MOTHER TO PARTICIPATE IN PATIENT CARE.
[2018-05-26] MEDS: MORPHINE SULFATE 4 MG/ML SYR/VIAL IV PRN ×14 (01:07→23:45)
[2018-05-26] MEDS: LORazepam 2MG/ML-1ML VIAL IV PRN ×14 (01:08→23:45)
[2018-05-26] MEDS: ACETAMINOPHEN 650 MG RECT SUPP PR PRN (01:09)
[2018-05-26 04:42] VITALS: BP 128/75
[2018-05-26] MEDS: METOCLOPRAMIDE HCL 5MG/ml INJ 2ml VIAL IV SCH (05:30)
--- NOTE | 2018-05-26 05:31 | NUR ---
MOTHER REFUSED REGLAN MEDICATION. WILL ENDORSE TO DAY SHIFT NURSE TO FOLLOW UP WITH MD TO CONSIDER DC REGLAN SINCE PATIENT IS NO LONGER ON FEEDING.
[2018-05-26 05:50] VITALS: BP 131/62
[2018-05-26] MEDS: PHENYTOIN SODIUM 50 MG/ML 2ML VIAL IV SCH ×3 (06:04→22:47)
--- NOTE | 2018-05-26 06:30 | NUR ---
ORAL CARE PROVIDED AT THIS TIME.
--- NOTE | 2018-05-26 07:05 | NUR ---
Morning note patient resting in bed with no facial grimacing noted. Eyes closed. Respirations even and unlabored, no distress noted. Family at bedside. Will continue to monitor q1hr & PRN.
[2018-05-26] MEDS: PANTOPRAZOLE 40 MG/10 ML VIAL IV SCH (07:19)
[2018-05-26 09:00] VITALS: BP 113/60
--- NOTE | 2018-05-26 10:00 | NUR ---
Hospice at bedside; will administer medications once meeting is completed.
--- NOTE | 2018-05-26 11:30 | NUR ---
Respiratory note: ASSESSED PATIENT FOR PRN BREATHING TX. PATIENT BREATH SOUNDS ARE CLEAR, NO TX INDICATED AT THE MOMENT, MOM IS AWARE TO PAGE RT IF BREATHING TX IS NEEDED. HR 80, RR 14, UNABLE TO OBTAIN SPO2 ON 2 L NASAL CANNULA. WILL CONTINUE TO MONITOR PATIENT AND NOTIFY RN.
--- NOTE | 2018-05-26 11:49 | NUR ---
Hospice at bedside speaking with the patient's mother and father.
[2018-05-26] MEDS: LEVETIRACETAM INJ 1,500 MG in D5W 5% 100 ML IV SCH ×2 (12:05→22:47)
[2018-05-26] MEDS: NYSTATIN TOPICAL POWDER 15GM TOP SCH ×2 (12:14→22:47)
--- NOTE | 2018-05-26 12:45 | NUR ---
Bety from [facility] met with mother, Irene, pt and family this morning to discuss hospice program. Bety to present case to her owners for admission to hospice with no payor source. Provided Bety with the necessary clinical medical information and equipment needed. discussed with mother transportation to her home and that the cost would have to be up front and out of pocket. Discussed possibly using [facility] vs. Nonemergent transportation and the varying costs. Bety from [facility] to followup on costs of both and notify mother. Mother verbalizing numerous tasks to complete before pt's discharge and that she'd had no sleep. Encouraged mother to delegate tasks( father offering assistance) in order to obtain relief so that she could rest up prior to pt's discharge by the end of the week. Mother verbalized understanding. Will continue to monitor and provide intervention as appropriate.
[2018-05-26 13:00] VITALS: BP 116/72
--- NOTE | 2018-05-26 14:52 | NUR ---
Orders received and read back to verify.
[2018-05-26 17:00] VITALS: BP 116/74
[2018-05-26] MEDS: ALBUTEROL SULF 2.5 MG/0.5ML(0.5%) NEB SOLN NEB PRN (18:32)
--- NOTE | 2018-05-26 18:47 | NUR ---
End of shift patient resting in bed with eyes closed, respirations even and unlabored on 2LPM NC with humidifier. Fall precautions in place with bed in low locked position. Patient's mother and father are at bedside. Pettit catheter patent and draining. Patient has been turned q2hr & PRN throughout the shift. Skin intact with no redness over arely prominences. Will endorse care to RN.
--- NOTE | 2018-05-26 19:00 | NUR ---
Care endorsed to LAURA Irene.
[2018-05-26 22:00] VITALS: BP 128/66
[2018-05-27] MEDS: LORazepam 2MG/ML-1ML VIAL IV PRN ×17 (01:00→23:05)
[2018-05-27] MEDS: MORPHINE SULFATE 4 MG/ML SYR/VIAL IV PRN ×17 (01:00→23:05)
[2018-05-27 05:00] VITALS: BP 114/64
[2018-05-27] MEDS: PHENYTOIN SODIUM 50 MG/ML 2ML VIAL IV SCH ×3 (05:47→23:05)
[2018-05-27] MEDS: PANTOPRAZOLE 40 MG/10 ML VIAL IV SCH (07:50)
[2018-05-27 08:57] VITALS: BP 101/60
[2018-05-27] MEDS: LEVETIRACETAM INJ 1,500 MG in D5W 5% 100 ML IV SCH ×2 (11:05→23:06)
--- NOTE | 2018-05-27 11:59 | NUR ---
Nutrition Follow-up Notes Wt.: 66.6 kg Pt's terminally extubated (05/23/18), on oxygen via nasal cannula, family members at bedside during rounds this morning. Pt's currently NPO, off from EN support, noted with DNR status and for comfort measures only. Est. Needs reassessed based on CBWt (68 kg): 1700 kcal to 2000 kcal (25-30 kcal/kgIBW), 68 gms to 88 gms pro (1.0-1.3 gms/kgBW d/t mod hypoalbuminemia). Will continue to monitor pertinent labs and reassess nutrient need prn Labs: No new labs since 05/23/18 Cl 1110H, BUN 4 L, Cr 0.29 L, Ca 7.8 L, AST 44 H, Tpro 6.0 L, Alb 2.5 L Skin: Patrice scale 10, high risk, pt's right upper medial thigh intact blister, serum filled per documentation liaison. Pls refer to and rescue fire fighter crash fire's notes for further details. GI: Pt had 1 BM 05/21/18 per documentation liaison. PES: Increased nutrient needs r/t current/chronic medical condition aeb intubated, sedated, mild hypoalbuminemia, NPO. Altered nutrition related lab values r/t current/chronic medical condition aeb hyperglycemia, elev. LFTs, hyperbilirubinemia, hypocalcemia and mild hypoalbuminemia Will continue to monitor NPO status, skin status, pertinent labs and weight trend. F/u in 2 to 3 days. Rec.: 1.) If still NPO, consider to resume EN support of Jevity 1.2 Ced to 65 ml/hr goal rate as tolerated if medically appropriate. 2.) Continue current plan of care
[2018-05-27 13:18] VITALS: BP 99/54
--- NOTE | 2018-05-27 13:25 | NUR ---
Respiratory note: PT ASSESSED FOR PRN MED NEB TX, NO TX INDICATED. SLIGHT SCATTERED EXPIRATORY CRACKLES HEARD ON RT AND CLEAR B/S ON RT. 98% ON 3L N/C HR 77 RR 16. PT'S MOTHER AND FATHER AT BEDSIDE AND AWARE TO HAVE RT PAGED IF NEEDED. RN ALSO AWARE TO HAVE RT PAGED IF NEEDED.
--- NOTE | 2018-05-27 14:01 | NUR ---
[facility] services at bedside with patient and family.
--- NOTE | 2018-05-27 14:11 | NUR ---
Mother verbalizing acceptance of hospice services and was provided with costs of transportations services from Bety at [facility]. [facility] would be $4300 out of pocket and [facility] non emergent transportation would be $700. [facility] approved pt's admission onto service without insurance. Bishop , [facility] strategy consultant, confirmed [facility] application had been completed and turned in. Mother requesting the following information in regards to transport: Would she be allowed to ride with pt? Can [facility] provide suctioning and nebulizer treatments enroute? Mother also stating that she needs more time before the patient can come home and wants pt to be discharged friday instead of friday. States she has to rearrange her home, buy groceries, get rest , etc. Advised that I would speak with MD but once pt is medically stable a discharge cannot be held for nonclinical reason. Also concerned that hospice meds would not be enough to manage pt at home. Provided reassurance that hospice meds would be able to manage pt and the option of transitioning pt off of IV meds to oral could be started here if cleared by MD. Addendum: 05/28/18 at 1422 by RYAN LORENZO Mother also stating she needed sheets for pt's bed and a someone to help with pt at night. Advised mother that hospice could assist with information regarding linen for medical equipment. Also discussed with mother that pt's discharge could not be held til friday for nonmedical reasons. Hospice is prepared and ready to deliver equipment at any time and begin services with pt. Friends are in the room who state that they are here to help relieve her. Advised mother to utilize time to rest and complete errands in order to prepare for pt's arrival. Mother verbalized yes she would.
[2018-05-27 17:00] VITALS: BP 102/67
--- NOTE | 2018-05-27 19:45 | NUR ---
Opening Shift Note Assumed care of patient. Patient is sleeping in bed and is facial grimacing is noted with painful stimuli. No distress noted at this time. Family is at the bedside. Instructed on plan of care and to call for assistance as needed. Bed is locked in lowest position, side rails x 2 are up, call light is within reach, and bed alarm is on.
[2018-05-27] MEDS: ALBUTEROL SULF 2.5 MG/0.5ML(0.5%) NEB SOLN NEB PRN (21:56)
[2018-05-27 22:00] VITALS: BP 107/62
[2018-05-27] MEDS: NYSTATIN TOPICAL POWDER 15GM TOP SCH (22:00)
[2018-05-28] MEDS: LORazepam 2MG/ML-1ML VIAL IV PRN ×24 (00:02→23:40)
[2018-05-28] MEDS: MORPHINE SULFATE 4 MG/ML SYR/VIAL IV PRN ×25 (00:02→23:40)
--- NOTE | 2018-05-28 04:00 | NUR ---
Received report from RN, patient is on seizure precautions, will be turning q2 hr, and provided medication as ordered.
[2018-05-28] MEDS: NYSTATIN TOPICAL POWDER 15GM TOP SCH ×3 (04:22→23:14)
--- NOTE | 2018-05-28 04:30 | NUR ---
ENDORSED PATIENT CARE TO SHIRA Endorse patient care to Shira RN. Patient is laying in bed with symmetrical chest rise and fall. No signs/symptoms of distress/SOB noted at this time. Family is at the bedside. Bed is locked in lowest position, side rails x 2 are up, and call light is within reach.
[2018-05-28 05:00] VITALS: BP 101/58
[2018-05-28] MEDS: PHENYTOIN SODIUM 50 MG/ML 2ML VIAL IV SCH ×3 (05:58→23:13)
[2018-05-28] MEDS: PANTOPRAZOLE 40 MG/10 ML VIAL IV SCH (07:09)
--- NOTE | 2018-05-28 07:35 | NUR ---
Opening Shift Note Assumed care of patient, patient unresponsive only responsive to deep pain. Patient has central line to right femoral triple lumen saline locked and all lines flushing well. Patient has a mcgrath patent and draining clear yellow urine. Patient is on 3L NC with no S/S of distress/SOB. Patient has rash to groin and buttock areas, nystatin powder to be applied to order. Mom at bedside. Bed in lowest locked position, seizure precautions initiated. Will continue to monitor for changes Q1hr and PRN.
--- NOTE | 2018-05-28 07:45 | NUR ---
Spoke to MD Hu and clarified if it is ok to give morphine and ativan together, and he said it was ok.
--- NOTE | 2018-05-28 08:14 | NUR ---
Respiratory note: ASSESSED PT FOR PRN TX PT WAS RESTING COMFORTABLY, NO DISTRESS NOTED WITH FAMILY AT BEDSIDE. HR 71, RR 16, SPO2 98% ON 3L N/C. BS ARE CLEAR AND DIMINISHED. PT'S MOTHER KNOWS TO HAVE RT PAGED IF TX IS NEEDED.
--- NOTE | 2018-05-28 08:45 | NUR ---
TURN PATIENT TURNED TO RIGHT SIDE. NO S/S OF DISTRESS NOTED. WILL CONTINUE TO MONITOR.
--- NOTE | 2018-05-28 10:45 | NUR ---
TURN AND ORAL CARE PATIENT TURNED TO LEFT SIDE. ORAL CARE PROVIDED. NO S/S OF DISTRESS NOTED. WILL CONTINUE TO MONITOR. FAMILY AT BEDSIDE.
[2018-05-28] MEDS: LEVETIRACETAM INJ 1,500 MG in D5W 5% 100 ML IV SCH ×2 (10:51→23:13)
--- NOTE | 2018-05-28 12:50 | NUR ---
TURN PATIENT TURNED TO RIGHT SIDE. NO S/S OF DISTRESS NOTED. WILL CONTINUE TO MONITOR.
--- NOTE | 2018-05-28 14:22 | NUR ---
Mother stating this morning that she does not want to take pt home and wants to wait til Friday. States she has facebook requests out for help with her daughter at night. Also states that her boss is willing to pay for the transportation by [facility] because she( the mother) is more comfortable with ambulance transportation. Provided number to mother for [facility] to her boss regarding the financial component and pt placed on will call with [facility]. Mother discussed with me that pt had a very difficult night ( anxious/ pain meds given late) and there's so much that she needs to finish and cant have it completed by friday. Asked mother to provide clarification on what needed to be done that had not been done throughout the week. Mother did not go home as previously stated she would and encouraged to do to prepare. Requested to speak with Dr. Lainez. Both and myself present and discussing discharge plans and dates. States she'd told me about needing assistance at home previously. I reiterated to her that the need for night care had not come up before yesterday. Mother states she has a friend who is willing to pay for the caregiver at night but that the caregiver cant start until Friday. Information provided on the significance of a pt being medically stable vs. needing acute care as well as the possibility of [facility] denying days of pt's stay once medically stable. Mother also asked what would happen if she declined to take her home. Provided information on Public guardian and State conservatorship. Per pt will be d/c'd on tomorrow and ready to go home when mother completes night caregiverAnibal [facility]: the above and asked to followup with mother.
--- NOTE | 2018-05-28 14:45 | NUR ---
TURN AND ORAL CARE PATIENT TURNED TO LEFT SIDE. ORAL CARE PROVIDED. NO S/S OF DISTRESS NOTED. WILL CONTINUE TO MONITOR. FAMILY AT BEDSIDE.
--- NOTE | 2018-05-28 16:50 | NUR ---
TURN PATIENT TURNED TO RIGHT SIDE. FAMILY ASSISTED. NO S/S OF DISTRESS NOTED. WILL CONTINUE TO MONITOR.
--- NOTE | 2018-05-28 18:50 | NUR ---
TURN AND ORAL CARE PATIENT TURNED TO LEFT SIDE. ORAL CARE PROVIDED. NO S/S OF DISTRESS NOTED. WILL CONTINUE TO MONITOR. FAMILY AT BEDSIDE.
--- NOTE | 2018-05-28 18:57 | NUR ---
END OF SHIFT PATIENT RESTING IN BED. FAMILY AT BEDSIDE. NO S/S OF DISTRESS. ENDORSED CARE TO NOC RN.
--- NOTE | 2018-05-28 19:45 | NUR ---
Opening Shift Note: A&OxO, unresponsive to stimuli. Patient is an ICU downgrade that was terminally weaned from ventilator. DNR status. Currently on 2LO2 via NC; unable to state presence of pain; bedrest. Bed locked in lowest position, side rails up x2, and call light within reach. Right femoral central line triple lumen IID inserted on 05/09/18. Skin: moisture rash/breakdown in groin/perianal area; scabbed blister on right upper thigh near groin. Pettit inserted on 05/09/18 for strict I/O and prolonged immobilization. POC discussed with family at bedside and questions answered. Will continue to round and reposition Q1H.
--- NOTE | 2018-05-28 20:30 | NUR ---
Deep suctioning performed at bedside using sterile technique. About 25-50 ml of yellow/clear thick secretions suctioned. Patient tolerated well with oxygen saturating in the mid to high 90s on 5LO2. Hyper ventilation to 5LO2 for anticipated deep suction.
[2018-05-28 22:00] VITALS: BP 105/65
[2018-05-29] MEDS: LORazepam 2MG/ML-1ML VIAL IV PRN ×10 (00:45→23:19)
[2018-05-29] MEDS: MORPHINE SULFATE 4 MG/ML SYR/VIAL IV PRN ×11 (00:45→23:19)
--- NOTE | 2018-05-29 02:08 | NUR ---
PAGED TO PT BEDSIDE DUE TO ACUTE DESATURATION AND INCREASED FIO2 REQUIREMENT. PRN BREATHING TX GIVEN. PT BS ARE VERY DIMINISHED THROUGHOUT RIGHT LOBE. ORDERS WERE OBTAINED FOR ADDITIONAL 5MG ALBUTEROL TX AND ABG. CXR TO BE COMPLETED IN AM. PT REMAINS ON A 15 L NRB POX 95-100% PT WAS ORAL SUCTIONED FOR MODERATE TO LARGE YELLOW SECRETIONS. MOTHER WAS AT BEDSIDE AND THERAPIST WAS ABLE TO ANSWER QUESTIONS AND CONCERNS. WILL ENDORSE CARE TO DAY SHIFT.
[2018-05-29 02:10] VITALS: BP 105/65
[2018-05-29] MEDS: ALBUTEROL SULF 2.5 MG/0.5ML(0.5%) NEB SOLN NEB PRN ×2 (02:18→09:25)
--- NOTE | 2018-05-29 02:28 | NUR ---
Page sent to preparation center coordinator hospitalist in regards to a drop in O2 saturation into high 70s/80s on 2LO2 via NC; O2 increased 10 L nonrebreather with respiratory therapist at bedside, sat came up to 98%.
--- NOTE | 2018-05-29 03:04 | NUR ---
Page return: per learning and development consultant hospitalist Frank, stat ABG, CXR at 0600, and stat 5 mg albuterol med neb.
[2018-05-29] MEDS ORDERED: ALBUTEROL SULF 2.5 MG/0.5ML(0.5%) NEB SOLN NEB ONE ×2 (03:15)
--- NOTE | 2018-05-29 03:22 | NUR ---
ABG completed by respiratory therapist: abnormal = pO2 63.3.
[2018-05-29 04:56] VITALS: BP 96/54
[2018-05-29] MEDS: PHENYTOIN SODIUM 50 MG/ML 2ML VIAL IV SCH ×3 (06:12→22:18)
--- NOTE | 2018-05-29 07:30 | NUR ---
Opening Shift Note Assuming care of patient at this time. Patient is resting in bed. Bed is locked and lowered with side rails up x2. Family at bedside. Instructed patient and family on the plan of care for today and to call for assistance as needed. Will continue to monitor.
--- NOTE | 2018-05-29 09:20 | NUR ---
Pt's mother stated she would not have assistance with patient until Friday evening. Bety from [facility] completed arrangements for equipment to be delivered to home on Friday and for [facility] to followup with pt on Friday once she is home. [facility] placed on Will-Call for Friday pending mother actually deciding to take the patient home. Mother vasilates with information and decision re: discharge. Will confirm with mother on Friday regarding pickup time. Will continue to monitor and provide intervention as appropriate.
--- NOTE | 2018-05-29 09:24 | NUR ---
RT ASSIST CALLED FOR PT. PRN MED NEB GIVEN DO TO PT DESATING. RECEIVED PT ON NRB WITH A SPO2 86% BS ARE COARSE, RR 24, HR 87. FAMILY MEMBERS AT BEDSIDE. NTS PT THROUGH BOTH NARES. LEFT NARE LARGE AMOUNTS OF THICK WHITE SECRETIONS. RIGHT NARE PINK BLOODY SECRETIONS. FAMILY MEMBERS ARE OKAY WITH RT NTS. SPO2 INCREASED TO 98%. PT WAS REPOSITION BY RN. RN WAS NOTIFIED TO HAVE SCHEDULE MED NEB TX WITH [facility]. WAITING ON DOCTORS ORDERS. WILL CONTINUE TO MONITOR PT.
[2018-05-29 09:40] VITALS: BP 86/56
[2018-05-29] MEDS: PANTOPRAZOLE 40 MG/10 ML VIAL IV SCH (10:13)
[2018-05-29] MEDS: LEVETIRACETAM INJ 1,500 MG in D5W 5% 100 ML IV SCH ×2 (10:13→22:18)
[2018-05-29] MEDS: NYSTATIN TOPICAL POWDER 15GM TOP SCH ×2 (10:27→22:18)
--- NOTE | 2018-05-29 13:01 | NUR ---
RT PAGED TO NTS PT'S PER FAMILY'S REQUEST. RECEIVED PT ON NRB AT 15L WITH SPO2 98%, BS ARE COARSE. NTS LEFT NARE LARGE AMOUNTS OF THICK WHITE SECRETIONS WITH SOME TINGED BLOOD. PT WALT. WELL.
[2018-05-29 13:14] VITALS: BP 126/89
--- NOTE | 2018-05-29 15:30 | NUR ---
PLACED PT ON SIMPLE MASK AND TITRATED TO 8LPM, SPO2 96, HR 82. FIO2 WILL BE TITRATED WALT. FAMILY MEMBERS AT BEDSIDE.
--- NOTE | 2018-05-29 16:50 | NUR ---
PLACED PT ON 6L NC SPO2 93%, HR 90. MOTHER AT BEDSIDE AND AWARE OF CHANGES. LAURA GARCIA MADE AWARE WELL. WILL CONTINUE TO WALT. PT.
[2018-05-29 17:45] VITALS: BP 111/67
--- NOTE | 2018-05-29 17:57 | NUR ---
Re: Mother asking for temperature check Patient's mother believes patient had a temperature. Checked temperature at this time. Patient has a temperature of 99.3. Will continue to monitor.
--- NOTE | 2018-05-29 18:30 | NUR ---
ASSESSMENT: MYSELF, CHARGE NURSE ROBBIN, AND NOC CHARGE DYANA AT PATIENT BEDSIDE TO REASSESS PATIENT PRIOR TO SHIFT CHANGE, TO INTRODUCE NOC SHIFT CHARGE NURSE TO MOM AND EXPLAIN PLAN OF CARE AND PATIENT NEEDS. PATIENT REPOSITIONED FOR COMFORT AND SUCTIONED AT THIS TIME. UPON SUCTIONING PATIENT OPENED HER MOUTH APPROPRIATELY ON COMMAND AND HELD IT OPEN FOR DURATION OF SUCTIONING. PATIENT WAS ABLE TO HAVE A HEARTY COUGH PROPELLING MUCUS TO BE ACCESSED BY YAUNKER. PATIENT TO OPEN HER EYES AT THIS TIME AND SLOWLY TRACK STAFF WE MOVED AROUND THE BED. PATIENTS PUPILS TESTED WITH PEN LIGHT AND NOTED TO BE EQUAL AND REACTIVE TO LIGHT. PATIENT MOVES ALL EXTREMITIES AWAY FROM PAINFUL STIMULI, AND BABINSKI REFLEXES NOTED BILATERALLY. WHEN PERFORMING PASSIVE ROM WITH LOWER EXTREMITIES, PATIENT HAS MUSCLE TONE AND WOULD REPLACE LOWER EXTREMITY BACK ON BED WHEN LEFT BENT. MOTHER AND FATHER AT BEDSIDE INFORMED THAT THIS WAS JUST AN ASSESSMENT AND NOT NECESSARILY AN INDICATOR OF A CHANGE IN STATUS. ALSO EXPLAINED THAT NEUROLOGIST PREVIOUS EXPLANATION COULD STILL BE COMPLETELY VALID EVEN WITH NEW ASSESSMENT FINDINGS. HOWEVER DR. GALDAMEZ WAS CALLED TO INFORM OF NEW ASSESSMENT FINDINGS AND HE STATED THAT IT IS THE PARENTS DECISION AT THIS POINT AND THAT UP TO THIS POINT PARENTS HAD BEEN ADAMANT AGAINST ANY LIFE SUSTAINING TREATMENTS OR INTERVENTIONS. HE STATED THAT THE PATIENT WOULD BE FOLLOWED BY THE SHIPPING INSPECTOR HOSPITALIST OVER THE WEEKEND AND HE WILL REASSESS ON FRIDAY IF THE FAMILY DECIDES TO KEEP THE PATIENT IN THE HOSPITAL OVER THE WEEKEND. HE RECOMMENDS TO NOT OVER MEDICATE THE PATIENT, AND TO ONLY GIVE PRN MEDICATIONS IF PAIN/AGITATION IS NOTED. REPORT GIVEN TO GENERAL MAINTENANCE MECHANIC CHARGE NURSE.
--- NOTE | 2018-05-29 19:39 | NUR ---
Closing Shift Note Patient is resting in bed. Family at bedside. Patient has been medicated for pain and anxiety. Patient has a 95% Oxygen saturation on 6L Nasal Cannula. Report given. Will endorse care to the shift engineer RN.
--- NOTE | 2018-05-29 20:00 | NUR ---
Respiratory note: ASSESSED PT FOR PRN MED NEB TX. I WAS INFORMED PT HAD RECENTLY BEEN SUCTIONED BY DAY SHIFT RN. B/S ARE CLEAR AT THIS TIME. POX 98% ON 6L N/C, HR 82, RR 16. NO S/S OF RESP DISTRESS. RN AND FAMILY AT BEDSIDE. WILL CONTINUE TO MONITOR T/O SHIFT.
[2018-05-29 22:00] VITALS: BP 129/67
[2018-05-30] MEDS: MORPHINE SULFATE 4 MG/ML SYR/VIAL IV PRN ×10 (01:06→22:39)
[2018-05-30] MEDS: LORazepam 2MG/ML-1ML VIAL IV PRN ×10 (01:06→22:39)
--- NOTE | 2018-05-30 01:36 | NUR ---
Respiratory note: RT PAGED TO ROOM D/T PT DESATURATION. PT SPO2 WAS LOW 80S. NTS PT FOR LARGE WHITE THICK SECRETIONS. SLIGHT BLOOD TINGED. SPO2 KAYLEEN TO 98% POST SUCTION. MOTHER AND RN AT BEDSIDE. WILL CONTINUE TO MONITOR.
[2018-05-30 05:00] VITALS: BP 108/58
[2018-05-30] MEDS: PHENYTOIN SODIUM 50 MG/ML 2ML VIAL IV SCH ×3 (06:23→22:39)
[2018-05-30] MEDS: PANTOPRAZOLE 40 MG/10 ML VIAL IV SCH (06:23)
--- NOTE | 2018-05-30 08:00 | NUR ---
Opening shift note: Patient is laying in bed, and not alert nor oriented. HOB is at 30 degrees with suctioning at bedside and call ledezma within reach. Rails are padded for seizure precautions. Patient's mother is at bedside. Patient is NPO and aphasic. Patient's mother notified that we will be making frequent rounds to turn the patient and administer pain medication and provide comfort care as needed. Patient's mother also made aware that there should be no recording with her cell phone, of care provided to the patient by medical staff. Patient's mother verbalized understanding and agrees. Addendum: 05/31/18 at 2007 by Luz Mccoy RN Patient's mother was recording her daughter laying in bed and the surrounding room while staff was in room providing care. Charge nurse Lorena notified, also application security specialist.
[2018-05-30 09:11] VITALS: BP 96/51
--- NOTE | 2018-05-30 09:14 | NUR ---
Patient provided with rosibel-care and repositioned with pillows and HOB is at 30 degrees. Patient medicated per MAR and patient's mother is at bedside. Comfort care cart is in the room for the patient's family.
--- NOTE | 2018-05-30 10:20 | NUR ---
Respiratory note: PATIENT ASSESSED FOR PRN MED-NEB TX. MED-NEB NOT INDICATED AT THIS TIME PATIENT IS SHOWING NO SIGNS OF RESPIRATORY DISTRESS; LUNG SOUNDS CLEAR T/O. SPO2 99% 6LPM N/C. FLOW DECREASED TO 4LPM AT THIS TIME. MOTHER AT BEDSIDE AND WAS EDUCATED ON WHY I WAS TITRATING FIO2. SHE UNDERSTOOD AND WAS IN AGREEMENT. ALL OF HER QUESTIONS WERE ANSWERED AT THIS TIME. NO INDICATION FOR NTS AT THIS TIME, MOTHER DENIES NEED FOR PATIENT WELL. WILL CONTINUE TO MONITOR SPO2 AND TITRATE FIO2 NECESSARY.
--- NOTE | 2018-05-30 11:00 | NUR ---
Patient repositioned with pillows for comfort. Patient's mother at bedside.
[2018-05-30] MEDS: NYSTATIN TOPICAL POWDER 15GM TOP SCH ×2 (11:20→22:42)
--- NOTE | 2018-05-30 12:04 | NUR ---
Nutrition Follow-up Notes Wt.: 59.0 kg Pt's terminally extubated (05/23/18), on oxygen via nasal cannula, family members at bedside during rounds this morning. Pt's currently NPO, off from EN support, noted with DNR status and for comfort measures only. Est. Needs reassessed based on CBWt (68 kg): 1700 kcal to 2000 kcal (25-30 kcal/kgIBW), 68 gms to 88 gms pro (1.0-1.3 gms/kgBW d/t mod hypoalbuminemia). Will continue to monitor pertinent labs and reassess nutrient need prn Labs: No new labs since 05/23/18 Cl 1110H, BUN 4 L, Cr 0.29 L, Ca 7.8 L, AST 44 H, Tpro 6.0 L, Alb 2.5 L Skin: Patrice scale 10, high risk, pt's right upper medial thigh intact blister, serum filled per tonsorial artist. Pls refer to exploration manager's notes for further details. GI: Pt had 1 BM 05/21/18 per tonsorial artist. PES: Increased nutrient needs r/t current/chronic medical condition aeb intubated, sedated, mild hypoalbuminemia, NPO. Altered nutrition related lab values r/t current/chronic medical condition aeb hyperglycemia, elev. LFTs, hyperbilirubinemia, hypocalcemia and mild hypoalbuminemia Will continue to monitor NPO status, skin status, pertinent labs and weight trend. F/u in 2 to 3 days. Rec.: 1.) If still NPO, consider to resume EN support of Jevity 1.2 Ced to 65 ml/hr goal rate as tolerated if medically appropriate. 2.) Continue current plan of care
--- NOTE | 2018-05-30 12:05 | NUR ---
Respiratory note: PATIENT WAS DESATTING AT THIS TIME WITH SPO2 AT 87%. PATIENT PLACED ON SIMPLE MASK AT 6LPM WITH NO INCREASE IN SATS, FLOW THEN INCREASED TO 12LPM; NO IMPROVEMENT. LUNG SOUNDS AERATED ON THE RIGHT, GREATLY DIMINISHED ON THE LEFT. NTS DONE AT THIS TIME WITH A LARGE AMOUNT OF THICK CLEAR/ YELLOW SECRETIONS ON RETURN. SPO2 INCREASED TO 97% WITHIN 1MIN POST NTS. PATIENT PLACED BACK ON 6LPM NASAL CANNULA WITH SPO2 MAINTAINING AT 96%. LAURA NORMAN AT BEDSIDE AND AWARE OF PATIENTS CONDITION.
[2018-05-30] MEDS: LEVETIRACETAM INJ 1,500 MG in D5W 5% 100 ML IV SCH ×2 (12:08→22:38)
[2018-05-30 13:00] VITALS: BP 101/62
--- NOTE | 2018-05-30 13:20 | NUR ---
Patient repositioned with pillows for comfort. Patient's mother and father is at bedside.
--- NOTE | 2018-05-30 14:18 | NUR ---
Respiratory note: FLOW DECREASED TO 4LPM NASAL CANNULA. PATIENT WAS REASSESSED AND FOUND WITH SPO2 OF 100% ON 6LPM.
--- NOTE | 2018-05-30 15:30 | NUR ---
Patient given a bed bath and hair is shampooed with special shampoo cap. Patient tolerated well and repositioned for comfort after receiving bath. Patient's mother is at bedside.
--- NOTE | 2018-05-30 16:10 | NUR ---
Social Studies Department Chair Raz phoned to get an update on the patient's status.
--- NOTE | 2018-05-30 16:15 | NUR ---
Patient repositioned with pillows for comfort. Patient's mother at bedside.
[2018-05-30 18:00] VITALS: BP 105/54
--- NOTE | 2018-05-30 18:06 | NUR ---
Respiratory note: PATIENT WAS DESATTING AT THIS TIME WITH SPO2 OF 85%. BS ARE CLEAR ON THE RIGHT AND DIMINISHED ON THE LEFT. NTS DONE AT THIS TIME WITH A LARGE AMOUNT OF THICK ROSEBUD GREEN AND DARK GREEN SECRETIONS ON RETURN. SPO2 INCREASED TO 98% WITHIN 1MIN POST NTS. PATIENT PLACED BACK ON 3 L/M NASAL CANNULA WITH SPO2 MAINTAINING AT 96%. RN AWARE OF OF PATIENTS CONDITION. FAMILY AT BEDSIDE. WILL CONTINUE TO MONITOR.
--- NOTE | 2018-05-30 18:15 | NUR ---
Patient repositioned with pillows for comfort. Patient's mother at bedside.
--- NOTE | 2018-05-30 18:15 | NUR ---
Patient repositioned with pillows for comfort. Patient's mother and father at bedside.
--- NOTE | 2018-05-30 19:00 | NUR ---
Closing shift note: Patient care is endorsed to Theresa-RN. Patient is laying in bed, turned on right side with pillows in place for comfort. Patient is not exhibiting any s/s of distress nor discomfort at this time. Patient's mother remains at bedside.
--- NOTE | 2018-05-30 19:40 | NUR ---
Opening Shift Note Assumed care of patient, resting, Family member at bedside. No S/S of distress/SOB or pain noted. Instructed on POC and to call for assist PRN, will continue to monitor for changes Q1hr and PRN. HOB elevated, seizure precautions in placed, Bed locked and in lowest position, call light within reach. Will continue to monitor pt.
--- NOTE | 2018-05-30 20:30 | NUR ---
REPOSITIONED PT PT TOLERATED PROCEDURE WELL SPO2 96%
[2018-05-30 22:00] VITALS: BP 96/58
--- NOTE | 2018-05-30 22:58 | NUR ---
REPOSITIONED PT PT TOLERATED PROCEDURE WELl
[2018-05-31] MEDS: LORazepam 2MG/ML-1ML VIAL IV PRN ×7 (00:45→22:17)
[2018-05-31] MEDS: MORPHINE SULFATE 4 MG/ML SYR/VIAL IV PRN ×7 (00:46→22:15)
--- NOTE | 2018-05-31 00:55 | NUR ---
REPOSITIONED PT PT TOLERATED PROCEDURE WELL, WILL CONTINUE TO MONITOR PT.
--- NOTE | 2018-05-31 02:50 | NUR ---
REPOSITIONED PT PT TOLERATED PROCEDURE WELL, WILL CONTINUE TO MONITOR PT.
--- NOTE | 2018-05-31 03:13 | NUR ---
RT AT BEDSIDE
--- NOTE | 2018-05-31 03:13 | NUR ---
Respiratory note: NTS DONE AT THIS TIME. PT BS ARE COARSE T/O. LARGE AMOUNT OF THICK WHITE AND RIVERA SECRETIONS ON RETURN. SPO2 INCREASED TO 98% WITHIN 1MIN POST NTS AND CLEAR BS. PATIENT PLACED BACK ON 3 L/M NASAL CANNULA WITH SPO2 MAINTAINING AT 96%. RN AWARE OF OF PATIENTS CONDITION. FAMILY AT BEDSIDE. WILL CONTINUE TO MONITOR.
[2018-05-31 05:00] VITALS: BP 93/53
[2018-05-31] MEDS: PHENYTOIN SODIUM 50 MG/ML 2ML VIAL IV SCH ×3 (06:01→22:12)
[2018-05-31] MEDS: ALBUTEROL SULF 2.5 MG/0.5ML(0.5%) NEB SOLN NEB PRN ×4 (06:13→21:37)
--- NOTE | 2018-05-31 06:13 | NUR ---
Respiratory note: ARRIVED IN PT ROOM PER RN PAGE. HR 75, RR 16, SPO2 95% ON 3 L NC BILATERAL BS ARE COARSE. PRN MN TX GIVEN VIA MASK.PT TOLERATED MED NEB TX WELL. RN AND MOTHER AT BEDSIDE. SPOKE TO RN ABOUT PLACING AN NTS ORDER. WILL CONSULT HOSPITALIST FOR NTS ORDER.
--- NOTE | 2018-05-31 06:30 | NUR ---
REPOSITIONED PT PT TOLERATED PROCEDURE WELL, ORAL CARE PROVIDED WILL CONTINUE TO MONITOR PT.
--- NOTE | 2018-05-31 07:25 | NUR ---
CLOSING NOTE REPORT Endorsed to day RN, Mom at bedside, no s/sx's of distress or sob noted
--- NOTE | 2018-05-31 08:00 | NUR ---
Opening shift note: Patient is laying in bed, and not alert nor oriented. HOB is at 30 degrees with suctioning at bedside and call ledezma within reach. Rails are padded for seizure precautions. Patient's mother is at bedside. Patient is NPO and aphasic. Patient's mother notified that we will be making frequent rounds to turn the patient and administer pain medication and provide comfort care as needed.
[2018-05-31 08:06] VITALS: BP 97/57
--- NOTE | 2018-05-31 08:15 | NUR ---
Respiratory note: PAGED TO PT ROOM BY RN. UPON ARRIVAL PT SPO2 WAS 83% ON 3 L NC. NTS LARGE, THIN, CREAMY SECRETIONS.NASAL TRUMPET INSERTED IN THE LEFT NOSTRIL. SPO2 INCREASED TO 97% ON 3 L NC POST NTS. RN AND MOM AT BEDSIDE. WILL CONTINUE TO MONITOR PT ORDERED.
--- NOTE | 2018-05-31 09:15 | NUR ---
Patient repositioned with pillows for comfort. Patient's mother at bedside.
--- NOTE | 2018-05-31 09:30 | NUR ---
Respiratory note: PT NTS SUCTIONED THROUGH THE NASAL TRUMPET. MODERATE, THIN, CREAM SECRETIONS. RN AND MOM AT BEDSIDE. SPO2 96% ON 3 L NC.
[2018-05-31] MEDS: NYSTATIN TOPICAL POWDER 15GM TOP SCH ×2 (10:00→22:21)
[2018-05-31] MEDS: LEVETIRACETAM INJ 1,500 MG in D5W 5% 100 ML IV SCH ×2 (10:00→22:12)
--- NOTE | 2018-05-31 11:20 | NUR ---
Patient repositioned with pillows for comfort. Patient's mother at bedside. Patient is de-sating down into the 80% range. Respiratory Therapy dept. paged to assist patient and manage the patient's oxygen delivery and suctioning. Patient tolerated well.
--- NOTE | 2018-05-31 11:51 | NUR ---
Swati, social service liaison was paged to confirm arrangements for patient's discharge home.
--- NOTE | 2018-05-31 11:55 | NUR ---
Swati phoned back stating that she was going to confirm home delivery of hospice supplies / equipment and arrange for transportation for the patient to her mother's home in [place]. Patient's mother notified.
--- NOTE | 2018-05-31 12:00 | NUR ---
WOUND CARE NOTE: Wound care has been attempting to see patient for skin integrity monitoring. At 1145 yesterday 05/30/18 Per LAURA Escobar, she just got the patient situated, cleansed and applied Nystatin powder to perineum and thighs and groin. Atthis time attempted to see patient again. Patient's mother at bedside, states skin is the least of the problem right now. Patient is desaturating to 88% and LAURA Escobar is paging MD and RT. Will try to see patient at later time.
[2018-05-31 12:13] VITALS: BP 104/66
--- NOTE | 2018-05-31 12:15 | NUR ---
Patient's mother Katie stated that the patient cannot be transported home today due to the "care team" not being available until tomorrow, 06/01/18 and that she will be home alone with the patient without help and she will need to sleep. Katie also states that the "equities analyst" of the hospital authorized the discharge of the patient to be held until Friday, pending care team being available to assist her with the care of the patient. Swati, 7th grade social studies teacher notified.
--- NOTE | 2018-05-31 12:30 | NUR ---
Respiratory note: NTS SUCTIONED DUE TO DROPPING SPO2. SUCTIONED SMALL, THIN, CREAM SECRETIONS.DR SUMMERS AND MOM AT BEDSIDE.
--- NOTE | 2018-05-31 13:10 | NUR ---
Patient is de-sating down to 87. Naso-tracheal suctioning provided for patient at this time. Patient tolerated well. Patient's oxygenation levels are now 94% on 3L O2 per n/c. Will continue to monitor the patient.
--- NOTE | 2018-05-31 13:25 | NUR ---
Patient repositioned with pillows for comfort. Patient tolerated well. Patient's mother at bedside.
--- NOTE | 2018-05-31 13:25 | NUR ---
Patient repositioned with pillows for comfort. Patient's mother at bedside.
[2018-05-31] MEDS: ACETYLCYSTEINE 10 %(100MG/ML) SOL 4ML NEB SCH ×3 (14:35→21:37)
--- NOTE | 2018-05-31 14:35 | NUR ---
Respiratory note: NTS SUCTIONED PT AFTER MED NEB TX. SUCTIONED VIA NASAL TRUMPET MODERATE, THIN, CREAM SECRETIONS. MOM AT BEDSIDE. POX 96% ON 3 L NC POST TX.
--- NOTE | 2018-05-31 16:10 | NUR ---
Patient's mother was being rude and agressive to one of the staff weapons officer's when we went into the patient's room to turn the patient. Charge nurse was notified.
--- NOTE | 2018-05-31 16:40 | NUR ---
Patient repositioned with pillows for comfort. Patient's mother at bedside. Provided NTS to patient for sats < 82% on 3L of O2. Patient tolerated well.
[2018-05-31 16:46] VITALS: BP 104/59
[2018-05-31] MEDS: PANTOPRAZOLE 40 MG/10 ML VIAL IV SCH (17:23)
--- NOTE | 2018-05-31 18:10 | NUR ---
.Patient repositioned with pillows for comfort. Patient's mother and father are at bedside.
--- NOTE | 2018-05-31 19:00 | NUR ---
Closing shift note: Patient care endorsed to Michael and Gina. Patient resting at this time and patient's mother is at bedside.
--- NOTE | 2018-05-31 19:45 | NUR ---
Opening shift note: Assumed care for patient for day nurse. Patient is nonverbal responses to pain stimuli. HOB is at 30 degrees with suctioning at bedside on 3L via nasal cannula at 90s. No indication for suction at this time. Bed is in lowest position and call ledezma within reach. Rails are padded on both sides for seizure precautions. Patient's mother and father are at bedside. Patient is NPO and aphasic. Patient's mother and father were instructed on poc and to call as needed and both verbalized understanding.
--- NOTE | 2018-05-31 19:47 | NUR ---
SCHEDULED MED NEB TX GIVEN W/O INCIDENT. PT HAS AUDIBLE COARSE BS. PT NTS THROUGH LEFT NARE WITH NASAL TRUMPET IN PLACE. SUCTIONED SMALL CLOUDY WHITE SECRETIONS. POX 98% FIO2 INCREASED TO 4L DUE TO MILD PT AGITATION. MOTHER EXPRESSED UNDERSTANDING.
[2018-05-31 22:00] VITALS: BP 114/61
--- NOTE | 2018-05-31 22:11 | NUR ---
PAGED TO BEDSIDE BY PT MOTHER. MOTHER STATES THAT PT WAS PULLING HER BREATH IN VERY HARD. PT WAS IN NO DISTRESS UPON ARRIVAL. MOTHER STATED SHE JUST STOPPED. MED NEB TX GIVEN AT THIS TIME. NASAL TRUMPET REMOVED AT THIS TIME AND THERAPIST WAS UNABLE TO PLACE IN ALTERNATE SIDE DUE TO OBSTRUCTION. EXPLAINED TO MOTHER THAT TRUMPET WOULD BE PLACED BACK IN LEFT NARE AT NEXT CHECK IN ORDER TO AVOID ANY TISSUE DAMAGE OR TRAUMA. MOTHER WAS IN AGREEMENT. PT BS REMAIN COARSE BUT WITH IMPROVED AERATION. ORAL SUCTIONED FOR SMALL ORAL SECRETIONS. POX 98%
--- NOTE | 2018-05-31 22:15 | NUR ---
Patient was reposition and tolerated well. No suction needed at this time. No s/s of distress or sob continuos pulse ox on patient at 98%. Medication was given per mother's request see eMAR. Patient has family bedside. Family was educated on the medication given.
[2018-06-01] MEDS: LORazepam 2MG/ML-1ML VIAL IV PRN ×9 (00:38→20:50)
[2018-06-01] MEDS: MORPHINE SULFATE 4 MG/ML SYR/VIAL IV PRN ×9 (00:39→20:50)
--- NOTE | 2018-06-01 00:39 | NUR ---
Patient was reposition and tolerated well. No suction needed at this time. No s/s of distress or sob continuos pulse ox on patient at 99% on 4L via nasal cannula. Medication was given per mother's request see eMAR. Mother is bedside. mother was educated on the medication given.
--- NOTE | 2018-06-01 02:38 | NUR ---
Patient turned and medicated Patient was reposition and tolerated well. No suction needed at this time. No s/s of distress or sob continuos pulse ox on patient at 98% on 4L via nasal cannula. Medication was given per mother's request see eMAR. Mother is bedside. Mother was educated on the medication given.
[2018-06-01] MEDS: ACETYLCYSTEINE 10 %(100MG/ML) SOL 4ML NEB SCH ×4 (02:40→14:00)
--- NOTE | 2018-06-01 04:36 | NUR ---
Patient medicated Patient was not repositioned per moms request at this time. Educated mom to call when she would like her turned, if before next scheduled position change. Mother verbalized understanding. No suction needed at this time. No s/s of distress or sob continuos pulse ox on patient at 97% on 3.5L via nasal cannula. Medication was given per mother's request see eMAR. Mother is bedside and was educated on the medication given.
[2018-06-01 05:47] VITALS: BP 107/60
[2018-06-01] MEDS: PANTOPRAZOLE 40 MG/10 ML VIAL IV SCH (06:41)
[2018-06-01] MEDS: PHENYTOIN SODIUM 50 MG/ML 2ML VIAL IV SCH (06:42)
--- NOTE | 2018-06-01 06:45 | NUR ---
PATIENT TURNED AND MEDICATED Patient was reposition and tolerated well. No suction needed at this time. No s/s of distress or sob continuos pulse ox on patient at 99% on 3.5L via nasal cannula. Medication was given per mother's request see eMAR. Mother is bedside. Mother was educated on the medication given.
[2018-06-01] MEDS: ALBUTEROL SULF 2.5 MG/0.5ML(0.5%) NEB SOLN NEB PRN ×2 (06:56→10:07)
--- NOTE | 2018-06-01 07:45 | NUR ---
Closing Shift note: Report given and care endorsed with darlyn Barlow day nurse. Patient is laying in bed no s/s of agitation or seizure active. Patient is on 3L via nc @ 95% with no s/s of distress or sob. Bed in lowest position with call light in reach. Mother is bedside.
--- NOTE | 2018-06-01 07:45 | NUR ---
Opening Shift Note Assumed care of patient, not alert, non-verbal . No S/S of distress/SOB or pain. Patient laying in bed with eyes closed, resting comfortably. Instructed on POC and to call for assist PRN, will continue to monitor for changes. Will assist with turning at least q2hrs, heels floated. Pettit catheter in place and draining draining dark tamica urine. Mother at bedside.
--- NOTE | 2018-06-01 08:32 | NUR ---
Patient repositioned to right side. Will continue to monitor.
--- NOTE | 2018-06-01 08:32 | NUR ---
Ativan administered due to patient noting to be biting on tongue. Patient arms noted to be shaking slightly. Charge nurse at bedside and RT. Tongue able to be moved out of place. Will continue to monitor.
--- NOTE | 2018-06-01 09:32 | NUR ---
Patient resting comfortably with no s/s of distress or pain noted. Will continue to monitor.
--- NOTE | 2018-06-01 10:04 | NUR ---
Patient repositioned to right side, Ativan and Morphine administered. Patient suction as well. Will continue to monitor.
--- NOTE | 2018-06-01 10:15 | NUR ---
Dr aLinez made aware of this AM episode of patient biting tongue, and arms slightly shaking.
[2018-06-01] MEDS: LEVETIRACETAM INJ 1,500 MG in D5W 5% 100 ML IV SCH (10:36)
[2018-06-01] MEDS: NYSTATIN TOPICAL POWDER 15GM TOP SCH ×2 (10:36→22:30)
--- NOTE | 2018-06-01 12:10 | NUR ---
Nutrition Follow-up Notes Wt.: 58.7 kg Pt's terminally extubated (05/23/18), on oxygen via nasal cannula, family members at bedside during rounds this morning. Pt's currently NPO, off from EN support, noted with DNR status and for comfort measures only. Est. Needs reassessed based on CBWt (68 kg): 1700 kcal to 2000 kcal (25-30 kcal/kgIBW), 68 gms to 88 gms pro (1.0-1.3 gms/kgBW d/t mod hypoalbuminemia). Will continue to monitor pertinent labs and reassess nutrient need prn Labs: No new labs since 05/23/18 Cl 1110H, BUN 4 L, Cr 0.29 L, Ca 7.8 L, AST 44 H, Tpro 6.0 L, Alb 2.5 L Skin: Patrice scale 10, high risk, pt's right upper medial thigh intact blister, serum filled per tab cutting machine operator. Pls refer to legislative correspondent's notes for further details. GI: Pt had 1 BM 05/21/18 per tab cutting machine operator. PES: Increased nutrient needs r/t current/chronic medical condition aeb intubated, sedated, mild hypoalbuminemia, NPO. Altered nutrition related lab values r/t current/chronic medical condition aeb hyperglycemia, elev. LFTs, hyperbilirubinemia, hypocalcemia and mild hypoalbuminemia Will continue to monitor NPO status, skin status, pertinent labs and weight trend. F/u in 2 to 3 days. Rec.: 1.) If still NPO, consider to resume EN support of Jevity 1.2 Ced to 65 ml/hr goal rate as tolerated if medically appropriate. 2.) Continue current plan of care
--- NOTE | 2018-06-01 12:30 | NUR ---
At 1200 Dr Lainez at bedside and speaking with patient's parents, with Bridge CM, [facility] Nurse, [facility] Sheet Ironworker, and pt's bedside RN. Dr Lainez informing family of POC and Bridge there to answer family's questions regarding Hospice care. Mother upset and at end of conversation requested for Dr Lainez to be off case. Dr Patton to be made aware. At 1230 Mother sated to bedside RN chelsi, "I'm done with you. Sorry. Please leave." Will continue to monitor.
[2018-06-01 13:00] VITALS: BP 101/60
--- NOTE | 2018-06-01 13:02 | NUR ---
Patient repositioned, will continue to monitor.
--- NOTE | 2018-06-01 13:15 | NUR ---
Family spoke with Dr Patton.
--- NOTE | 2018-06-01 14:05 | NUR ---
Respiratory note: 1400 MED-NEB HELD PER MOTHERS REQUEST. SHE STATED THEY WERE STOPPING ALL TREATMENTS. PATIENT IN NO ACUTE RESPIRATORY DISTRESS AT THIS TIME.
--- NOTE | 2018-06-01 14:14 | NUR ---
Patient repositioned to right side and suctioned. Will continue to monitor.
--- NOTE | 2018-06-01 14:44 | NUR ---
Morning meeting held with Dr. Lainez, [facility] nurse, assigned nurse, myself, mother and father of pt. Mother stating she did not want pt discharged because of seizure activity this morning that she'd witnessed. Requesting that pt be assessed by [facility] and asking if pt was declining to the point that she was actively transitioning. [facility] hospice nurse and MD answered all clinical questions. Both stated that currently pt is stable and there is no way of knowing if and when pt would pass or have a seizure. Mother verbalized questions regarding pt's current POC with MD and requested to have replaced with Dr. Patton or Dr. Cueto. Stated she would make a decision regarding continue current plan or discontinuing it as well as decision on d/c.
--- NOTE | 2018-06-01 14:55 | NUR ---
Patient's mother speaking with Dr Patton reagarding her wishes for patient. Per Mother's request New orders recieved from Dr Patton to D/C Phenytoin, Mucomusyt, Keppra, Protonix, Zofran, Ventolin, Nasogastric suctionong, Oral suction ok to do with Cuco, New order received to start Ativan 1 mg IV for seizures as well per Dr Patton. Will continue to monitor.
--- NOTE | 2018-06-01 15:07 | NUR ---
Kavya made aware to set up [facility] transport for 06/02/18 at 1100.
[2018-06-01] MEDS ORDERED: LORazepam 2MG/ML-1ML VIAL IV PRN (15:15)
--- NOTE | 2018-06-01 15:55 | NUR ---
Mother has agreed to discharge home tomorrow. Equipment is present in the home. Contacted [facility] and placed pt back on [facility]. Attempted to setup time but [facility] needs credit card information to put on schedule. 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 Mother stated she was waiting and would call now. Will followup with [facility] and mother before end of work day.
[2018-06-01 17:00] VITALS: BP 108/61
--- NOTE | 2018-06-01 17:54 | NUR ---
Patient repositioned will continue to monitor.
--- NOTE | 2018-06-01 18:10 | NUR ---
WOUND CARE NOTE: Wound care in to see patient for skin integrity monitoring. Patient is resting in bed in Rm. 206. Patient Patient appears to be in no pain using Morales Whitney Faces Pain Scale. Her current Patrice score is 12. Patient's mother at bedside. Skin assessment done with the assistance of patient's nurse, LAURA Barlow. Blister to patient's R upper medial thigh is now resolved and dry. Intertrigo to groin and thighs continue to improve. Patient is receiving BID/PRN cleaning and application of Nystatin powder to patient's thighs and groin. New photograph of skin issue are taken for reference. No other wound noted, no pressure injury related issue noted. Repositioned patient for comfort facing her Lt side, redistributed pressure points with pillows. Patient tolerated well. LAURA Barlow and patient's mother at bedside. RECOMMENDATION: Continuation of all wound care orders prescribed by MD, Continue with skin/wound plan of care,continue monitoring by wound care while patient is hospitalized. Addendum: 06/01/18 at 1858 by Tara Wang RN Amended: Links added.
--- NOTE | 2018-06-01 18:22 | NUR ---
Received call from [facility] and per [facility] POL TO be signed for transport tomorrow. Placed in chart and Dr Patton to be made aware.
--- NOTE | 2018-06-01 18:40 | NUR ---
Patient repositioned will continue to monitor. No s/s of distress noted.
--- NOTE | 2018-06-01 19:08 | NUR ---
Patient care and report handed off to Haley SANCHEZ. 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
--- NOTE | 2018-06-01 20:36 | NUR ---
Opening shift note: Assumed care for patient bed side report with DAY RN eYn. Family members at bedside. Patient is resting, nonverbal responses to pain stimuli. HOB is at 30 degrees with suctioning at bedside on 3L via nasal cannula continuous o2 monitoring. Bed is in lowest position and call ledezma within reach. Rails are padded on both sides for seizure precautions. Patient's mother and father are at bedside. Patient's mother and father were instructed on poc and to call as needed and both verbalized understanding.
--- NOTE | 2018-06-01 20:55 | NUR ---
HOSPICE PERSONAL At bedside Hospice personal AT bedside, Gave bag to family members, Mother informed and gave bag to charge entry
--- NOTE | 2018-06-01 21:10 | NUR ---
REPOSITIONED PT Patient was reposition with help of LAURA Manuel and tolerated well. No suction needed at this time. No s/s of distress or sob continuos pulse ox on patient at 96% on 4L via nasal cannula. Medication was given per mother's request see eMAR. Mother and Father at bedside. Family members educated on the medication given. Mother requested that no vitals be taken and for central line not to be changed at this time. Mother would like patient to be rested as was recently turned. Inform family members to let me know when they are ready, dressing and new mcgrath need to be changed. will continue to monitor pt.
--- NOTE | 2018-06-01 22:29 | NUR ---
PT ROUNDS Asked mother if would like to be repositioned and informed the need for the nystatin medication and cleaning of periarea,as well if it is ok for mcgrath cath change or dressing change mother stated not at this time, will continue to monitor pt.
--- NOTE | 2018-06-01 23:25 | NUR ---
PT ROUNDS PT resting no s/sx's of distress or sob, noted. Mother at bedside resting, will continue to monitor pt.
[2018-06-02] MEDS: MORPHINE SULFATE 4 MG/ML SYR/VIAL IV PRN ×7 (00:06→12:55)
[2018-06-02] MEDS: LORazepam 2MG/ML-1ML VIAL IV PRN ×7 (00:06→12:55)
--- NOTE | 2018-06-02 00:25 | NUR ---
Mcgrath catheter dc'd Order to discontinue mcgrath catheter. Mcgrath dc'd with clean technique following deflation of balloon. Patient tolerated well with no complaints of pain. Continue care.
--- NOTE | 2018-06-02 00:30 | NUR ---
Mcgrath catheter insertion Patient assessed and determined to be in need of mcgrath catheter. Order obtained from MD. Patient educated on catheter and reason for insertion. All questions answered. Mcgrath catheter 14 guage English inserted with clean sterile technique. Patient tolerated well.
--- NOTE | 2018-06-02 00:30 | NUR ---
FAMILY MEMBER Mother did not wish for central line dressing to be changed. will continue to monitor pt.
--- NOTE | 2018-06-02 00:35 | NUR ---
REPOSITIONED PT PT TOLERATED PROCEDURE WELL SPO2 96%
--- NOTE | 2018-06-02 02:44 | NUR ---
PT ROUNDS Per mother request administered medications see emar, per mother request would not like for patient to be repositioned, will continue to monitor pt.
--- NOTE | 2018-06-02 05:02 | NUR ---
Patient turned and medicated Patient was reposition and tolerated well. No suction needed at this time. No s/s of distress or sob continuos pulse ox on patient at 97% on 3L via nasal cannula. Medication was given per mother's request see eMAR. Mother and father at bedside. Mother/father were educated on the medication given.
--- NOTE | 2018-06-02 06:28 | NUR ---
PT ROUNDS PT resting no s/sx's of distress or sob, noted. Mother and Father at bedside resting, will continue to monitor pt.
--- NOTE | 2018-06-02 07:33 | NUR ---
CLOSING NOTE Report endorsed to day RN, Pt resting or sob noted. Mother and father at bedside.
--- NOTE | 2018-06-02 07:40 | NUR ---
OPENING NOTE Assumed care of patient from NOC RNHaley. Patient resting, nonverbal but responds to painful stimuli. No S/S of distress/SOB or pain. Patient's family members at bedside. HOB at 30 degrees, continuous suction at bedside, nasal cannula in place and connected to 3L O2. Pettit catheter intact, patent and hung below bed. Bed in lowest, locked position with side rails up x2. Fall/seizure precautions in place. Will continue to monitor for changes Q1hr and PRN.
--- NOTE | 2018-06-02 09:44 | NUR ---
FAMILY REFUSED VITALS SINGS FOR PATIENT.
[2018-06-02] MEDS: NYSTATIN TOPICAL POWDER 15GM TOP SCH (12:20)
--- NOTE | 2018-06-02 12:42 | NUR ---
MEDICATIONS Patient being transported home on hospice via [facility]. Patient's mother requested for RN to be available en route in case patient needs prn IV medications, Morphine and Ativan. Per transfer RN, [facility] does not supply those specific medications. Per , Dr. Patton, and Agricultural Education Professor, lily Whiteside to dispense dose of Morphine and Ativan from medication pyxis for transfer nurse to administer en route if needed.
--- NOTE | 2018-06-02 13:10 | NUR ---
DISCHARGE Discharge instructions given as ordered. All questions and concerns addressed. Patient's mother verbalized understanding. Medication reconciliation form completed and copy given to patient's mother. Held hospice medications given to patient's mother. PRN medications, Ativan and Morphine, administered. Central line removed with catheter intact and pressure dressing applied. Pettit catheter left intact. Patient taken to vehicle via gurney with all personal belongings, accompanied by [facility] staff and mother. No distress noted at time of departure.
== END 2018-06-02 13:10 | disposition hospice, home (50) | DRG 870 ==
LOC: EDBD 18:19 → ER 18:21 → EDBD 18:21 → OVERFLOW 21:57 → EDBD 21:57 → ICU WEST 05-11 14:55 → CENTRAL 05-23 21:13
PROVIDERS: ADMIT Nurse Practitioner; ATTEND Internal Medicine
PROC: 5A12012 Performance of Cardiac Output, Single, Manual (ICD-10-PCS; principal; 2018-05-09)
PROC: 5A1955Z Respiratory Ventilation, Greater than 96 Consecutive Hours (ICD-10-PCS; 2018-05-09)
PROC: 0BH17EZ Insertion of Endotracheal Airway into Trachea, Via Natural or Artificial Opening (ICD-10-PCS; 2018-05-09)
PROC: 06HY33Z Insertion of Infusion Device into Lower Vein, Percutaneous Approach (ICD-10-PCS; 2018-05-09)
DX: A41.9 Sepsis, unspecified organism (principal); G93.41 Metabolic encephalopathy; I46.9 Cardiac arrest, cause unspecified; N17.0 Acute kidney failure with tubular necrosis; J96.20 Acute and chronic respiratory failure, unspecified whether with hypoxia or hypercapnia; G93.1 Anoxic brain damage, not elsewhere classified; I42.9 Cardiomyopathy, unspecified; J45.902 Unspecified asthma with status asthmaticus; E87.0 Hyperosmolality and hypernatremia; Z99.11 Dependence on respirator [ventilator] status; F17.200 Nicotine dependence, unspecified, uncomplicated; Z51.5 Encounter for palliative care; E87.6 Hypokalemia; G40.909 Epilepsy, unspecified, not intractable, without status epilepticus; Z66 Do not resuscitate; Z79.899 Other long term (current) drug therapy; Z82.49 Family history of ischemic heart disease and other diseases of the circulatory system
CPT/HCPCS: 31720; 36415; 36556; 36600; 70450; 71045; 71250; 74176; 80048; 80053; 80185; 80202; 80307; 81001; 82550; 82570; 82805; 83605; 83735; 84132; 84156; 84300; 84484; 85025; 85610; 85730; 87040; 87070; 87077; 87081; 87086; 87186; 87205; 87804; 93005; 93306; 94002; 94003; 94640; 94644; 95819; 96361; 96365; 96367; 96375; 99291; A4618; A6257; C9113; G0378; J0610; J2250; J2543; J2704; J3480; J7060